=== PATIENT | female | born 1930 ===

== ENCOUNTER 2018-01-26 02:07 | Inpatient (IN) | payer MEDICARE, OTHER ==
--- NOTE | 2018-01-26 02:19 | ED PDOC ---
Arrival/HPI - General Time Seen by Provider: 01/26/18 02:15 Historian: EMS, Police - History of Present Illness Narrative History of Present Illness (Text): 01/26/18 02:15 Guadalupe Mcfadden is an 87 year old female, initially brouhght to the ER as a Aditi Stewart, whose past medical history includes dementia and defibrillator, who presents to the emergency department brought in by EMS for altered mental status after patient was found wandering around a convenience store tonight. Patient does not recall her last name, states her first name is Guadalupe. Patient agitated, yelling, and combative with staff, Patient is unable to provide any further history. Limited HPI and ROS secondary to patient's altered mental status. Time/Duration: Other (tonight) Symptom Onset: Gradual Symptom Course: Unchanged Activities at Onset: Light Context: Street Past Medical History - Provider Review Nursing Documentation Reviewed: Yes Family/Social History - Physician Review Nursing Documentation Reviewed: Yes Family/Social History: Unknown Family HX Allergies/Home Meds Allergies/Adverse Reactions: Allergies Unobtainable Allergy (Verified 01/26/18 02:15) Home Medications: Home Meds Medication Instructions Recorded Confirmed Aspirin [Aspirin Chewable] 81 mg PO DAILY 01/26/18 01/26/18 Carvedilol [Coreg] 6.25 mg PO BID 01/26/18 01/26/18 Cholecalciferol (Vitamin D3) [D3 2,000 iu PO DAILY 01/26/18 01/26/18 Dots] Donepezil [Aricept] 10 mg PO HS 01/26/18 01/26/18 Losartan [Cozaar] 25 mg PO DAILY 01/26/18 01/26/18 Memantine [Namenda] 10 mg PO DAILY 01/26/18 01/26/18 predniSONE [predniSONE] 2.5 mg PO DAILY 01/26/18 01/26/18 risperiDONE [RisperDAL Tab] 0.25 mg PO DAILY 01/26/18 01/26/18 Review of Systems - Review of Systems Systems not reviewed;Unavailable: Altered Mental Status Physical Exam - Physical Exam Physical Exam Limitations: Uncooperative Vital Signs Reviewed: Yes Vital Signs Temp Pulse Resp BP Pulse Ox 01/26/18 06:00 63 14 103/62 95 01/26/18 05:14 57 L 14 97/57 L 94 L 01/26/18 05:00 54 L 16 99/55 L 95 01/26/18 03:15 124 H 128/109 H 01/26/18 02:18 97.7 F 81 19 127/63 98 Temperature: Afebrile Blood Pressure: Normal Pulse: Regular Respiratory Rate: Normal Pain Distress: None Mental Status: Positive for: Agitated, other (Combative) - Systems Exam Head: Present: Atraumatic, Normocephalic Pupils: Present: PERRL Extroacular Muscles: Present: EOMI Conjunctiva: Present: Normal Mouth: Present: Moist Mucous Membranes Neck: Present: Normal Range of Motion Respiratory/Chest: Present: Clear to Auscultation, Good Air Exchange. No: Respiratory Distress, Accessory Muscle Use Cardiovascular: Present: Regular Rate and Rhythm, Normal S1, S2. No: Murmurs Abdomen: No: Tenderness, Distention, Peritoneal Signs Back: Present: Normal Inspection Upper Extremity: Present: Normal Inspection. No: Cyanosis, Edema Lower Extremity: Present: Normal Inspection. No: Edema Neurological: Present: GCS=15, CN II-XII Intact, Speech Normal Skin: Present: Warm, Dry, Normal Color. No: Rashes Psychiatric: Present: Agitated, Other (Combative) Medical Decision Making ED Course and Treatment: 01/26/18 02:15 Impression: 87 year old female brought in initially as a Aditi Stewart after she was found wandering inside a convenience store tonight. Plan: -- Labs -- Ativan -- Reassess and disposition Progress Notes: Pt awake, alert, agitated, yelling, and combative with staff. 01/26/18 02:56 Called to bedside by RN, pt unresponsive, in cardiac arrest. ACLS protocol initiated, CPR commenced, pt placed on continuous telemetry. 01/26/18 02:58 Epi given, CPR in progress. 01/26/18 03:00 Atropine given, CPR in progress. 01/26/18 03:02 Epi given, CPR in progress. 01/26/18 03:03 PROCEDURE: INTUBATION Performed by the emergency provider Consent: Discussion of the risks, benefits, and alternatives to the procedure, along with informed consent was precluded by the urgency of the procedure and the patient condition. Timeout: A timeout to verify the correct patient, procedure, and site was performed. Indication: cardiac arrest Pre-oxygenation: [id number] Medications: See MAR for details. ETT Size: 8.0 G Confirmation: Cords directly visualized as tube passed, good bilateral breath sounds, positive CO2 detector color change, tube fogging, adequate chest rise, improving pulse oximetry reading, improved skin color, and absence of gastric sounds,. ETT Secured: The cuff was inflated and the tube was secured appropriately at a distance of 22 cm at the lip. Post-Procedure: There were no immediate complications. CXR Confirmation: Yes 01/26/18 03:05 Epi given. Pulse-check, no palpable pulses. CPR in progress 01/26/18 03:08 Bedside US performed, PEA, no palpable pulses 01/26/18 03:11 Epi given. Right EJ placed for IV access. PROCEDURE: VENIPUNCTURE Performed by the emergency provider. Consent: Informed consent, after discussion of the risks, benefits, and alternatives to the procedure, was obtained verbally from the patient prior to procedure. Timeout: A timeout to verify the correct patient, procedure, and site was performed immediately prior to the procedure. Indication: Lack of adequate venous access. Skin Preparation: Hand hygiene performed prior to venous catheter insertion. The area was cleansed and prepped with alcohol swabs. Location: Right neck Technique: A 18 gauge catheter was placed into the RIGHT EJ. Successful placement: YES. Good blood return, flushes well. Post-procedure: No immediate complications. 01/26/18 03:14 Epi given, CPR in progress. 01/26/18 03:16 Pulse-check: pulses palpated, NSR at 126 bpm on tele monitor. Total doses of Epi , Atropine as documented. Refer to nursing code documentation for further information. EKG, post-intubation Chest X-Ray, and troponin ordered. 01/26/18 03:40 Pt's bracelet contained pt's past medical history and contact information for daughter. Daughter notified and will come to ER. Pt with a past medical history of dementia and defibrillator. 01/26/18 03:43 Post-intubation Chest X-Ray reviewed, shows ET tube above the jaye. 01/26/18 03:54 Reviewed EKG, NSR at 67 bpm. RBBB. LAFB. LVH. Bifascicular block. Non-specific ST/T wave changes. 01/26/18 03:[address] Keswani, youth program director, who is aware and agrees to evaluate pt for ICU admission. 01/26/18 04:15 Pt's daughters present at bedside, resuscitation efforts were discussed in full. Family verbalize understanding. Pt's name and date confirmed by daughters. - Critical Care Critical Care Minutes: 45 minutes Narrative Critical Care (Text): Management of cardiac arrest - Lab Interpretations Lab Results: 01/26/18 03:15 01/26/18 03:15 Lab Results 01/26/18 03:15: Sodium 148, Potassium 4.0, Chloride 109 H, Carbon Dioxide 14 L, Anion Gap 28 H, BUN 26 H, Creatinine 1.0, Est GFR ( Amer) > 60, Est GFR ( Non-Af Amer) 53, Random Glucose 247 H, Calcium 8.3 L, Total Bilirubin 0.2, AST 53 H, ALT 39, Alkaline Phosphatase 75, Troponin I 0.05, Total Protein 5.2 L, Albumin 2.8 L, Globulin 2.4, Albumin/Globulin Ratio 1.2 01/26/18 03:15: WBC 12.6 H, RBC 4.15, Hgb 12.6, Hct 42.0, MCV 101.2, MCH 30.4, MCHC 30.0 L, RDW 14.9 H, Plt Count 178, MPV 12.4 H, Gran % 28.3 L, Lymph % (Auto ) 61.2 H, [place] % (Auto) 7.8 H, Eos % (Auto) 2.5, Baso % (Auto) 0.2, Gran # 3.54 , Lymph # (Auto) 7.7 H, [place] # (Auto) 1.0 H, Eos # (Auto) 0.3, Baso # (Auto) 0.03 I have reviewed the lab results: Yes - RAD Interpretation Radiology Orders: 01/26/18 03:22 CHEST PORTABLE [RAD] Stat Physical Science Teacher: ED Physician - EKG Interpretation Interpreted by ED Physician: Yes Type: 12 lead EKG - Medication Orders Current Medication Orders: Discontinued Medications Acetaminophen (Tylenol 650 Mg Supp) 650 mg RC Q4H PRN PRN Reason: Fever >100.4 F Diphenhydramine HCl (Benadryl) 50 mg IVP ONCE ONE Stop: 01/28/18 00:13 Last Admin: 01/28/18 00:26 Dose: 50 mg IVP Administration Document 01/28/18 00:26 BASSETT (Rec: 01/28/18 00:26 BASSETT [id number]) Charges for Administration # of IVP Administrations 1 Enoxaparin Sodium (Lovenox) 40 mg SC DAILY DAVID PRN Reason: Protocol Last Admin: 01/27/18 12:00 Dose: 40 mg Subcutaneous Administrations Document 01/27/18 12:00 CONSTANTINE (Rec: 01/27/18 18:01 CONSTANTINE [facility] Injection Site MAR Injection Site Left Deltoid Charges for Administration # of Subcutaneous Administrations 1 Sodium Chloride (Sodium Chloride 0.9%) 1,000 mls @ 120 mls/hr IV .Q8H20M [facility] Last Admin: 01/26/18 06:00 Dose: 120 mls/hr eMAR Start Stop Document 01/26/18 06:00 AD (Rec: 01/26/18 06:26 AD [id number]) Intravenous Solution Start Date 01/26/18 Start Time 06:00 Doxycycline Hyclate 100 mg/ (Sodium Chloride) 100 mls @ 100 mls/hr IVPB Q12 DAVID PRN Reason: Protocol Last Admin: 01/27/18 09:25 Dose: 100 mls/hr eMAR Start Stop Document 01/27/18 09:25 CONSTANTINE (Rec: 01/27/18 09:25 CONSTANTINE [id number]) Intravenous Solution Start Date 01/27/18 Start Time 09:25 End Date 01/27/18 End time 10:25 Total Infusion Time 60 Levetiracetam 1,000 mg/ Sodium (Chloride) 110 mls @ 440 mls/hr IV ONCE ONE Stop: 01/26/18 06:50 Last Admin: 01/26/18 19:15 Dose: 440 mls/hr eMAR Start Stop Document 01/26/18 19:15 CONSTANTINE (Rec: 01/27/18 18:07 CONSTANTINE [facility] Intravenous Solution Start Date 01/26/18 Start Time 19:15 End Date 01/26/18 End time 19:30 Total Infusion Time 15 Levetiracetam (Keppra 500mg Ivpb) 500 mg in 100 mls @ 400 mls/hr IV Q12H [facility] Last Admin: 01/27/18 06:07 Dose: 400 mls/hr eMAR Start Stop Document 01/27/18 06:07 MG (Rec: 01/27/18 06:08 MG [id number]) Intravenous Solution Start Date 01/27/18 Start Time 06:07 End Date 01/27/18 End time 06:22 Total Infusion Time 15 Sodium Bicarbonate 75 meq/ (Sodium Chloride) 1,075 mls @ 100 mls/hr IV .[id number] DAVID Last Admin: 01/26/18 23:00 Dose: 100 mls/hr eMAR Start Stop Document 01/26/18 23:00 MG (Rec: 01/27/18 02:17 MG [id number]) Intravenous Solution Start Date 02/02/18 Start Time 23:00 Cefepime HCl (Maxipime 1gm) 1 gm in 100 mls @ 100 mls/hr IVPB Q8 DAVID PRN Reason: Protocol Stop: 02/04/18 14:01 Last Admin: 01/27/18 14:50 Dose: 100 mls/hr eMAR Start Stop Document 01/27/18 14:50 CONSTANTINE (Rec: 01/27/18 17:51 CONSTANTINE [facility] Intravenous Solution Start Date 01/27/18 Start Time 14:55 End Date 01/27/18 End time 15:55 Total Infusion Time 60 Vancomycin HCl 2 gm/ Sodium (Chloride) 500 mls @ 170 mls/hr IVPB ONCE ONE PRN Reason: Protocol Stop: 01/26/18 16:29 Last Admin: 01/26/18 14:45 Dose: 170 mls/hr eMAR Start Stop Document 01/26/18 14:45 CONSTANTINE (Rec: 01/26/18 14:46 CONSTANTINE [id number]) Intravenous Solution Start Date 01/26/18 Start Time 14:45 End Date 01/26/18 End time 16:35 Total Infusion Time 110 Levetiracetam 1,000 mg/ Sodium (Chloride) 110 mls @ 440 mls/hr IV ONCE ONE Stop: 01/26/18 15:21 Last Admin: 01/26/18 15:19 Dose: 440 mls/hr eMAR Start Stop Document 01/26/18 15:19 CONSTANTINE (Rec: 01/26/18 15:20 CONSTANTINE [id number]) Intravenous Solution Start Date 01/26/18 Start Time 15:19 End Date 01/26/18 End time 15:40 Total Infusion Time 21 Magnesium Sulfate/Dextrose (Magnesium Sulfate 1 Gm/100 Ml D5w) 1 gm in 100 mls @ 100 mls/hr IVPB ONCE ONE Stop: 01/27/18 06:59 Last Admin: 01/27/18 06:11 Dose: 100 mls/hr eMAR Start Stop Document 01/27/18 06:11 MG (Rec: 01/27/18 06:12 MG [id number]) Intravenous Solution Start Date 01/27/18 Start Time 06:12 End Date 01/27/18 End time 07:12 Total Infusion Time 60 Magnesium Sulfate (Magnesium Sulfate 2 Gm/50 Ml Water) 2 gm in 50 mls @ 50 mls/ hr IVPB ONCE ONE Stop: 01/27/18 08:53 Last Admin: 01/27/18 09:20 Dose: 50 mls/hr eMAR Start Stop Document 01/27/18 09:20 CONSTANTINE (Rec: 01/27/18 09:20 CONSTANTINE [id number]) Intravenous Solution Start Date 01/27/18 Start Time 09:20 End Date 01/27/18 End time 10:20 Total Infusion Time 60 Calcium Gluconate 1,000 mg/ (Sodium Chloride) 110 mls @ 110 mls/hr IVPB ONCE ONE Stop: 01/27/18 09:07 Last Admin: 01/27/18 09:19 Dose: 110 mls/hr eMAR Start Stop Document 01/27/18 09:19 CONSTANTINE (Rec: 01/27/18 09:20 CONSTANTINE [id number]) Intravenous Solution Start Date 01/27/18 Start Time 09:19 End Date 01/27/18 End time 10:20 Total Infusion Time 61 Vancomycin HCl (Vancomycin 1gm) 1 gm in 250 mls @ 167 mls/hr IVPB Q12H DAVID PRN Reason: Protocol Last Admin: 01/27/18 17:47 Dose: 167 mls/hr eMAR Start Stop Document 01/27/18 17:47 CONSTANTINE (Rec: 01/27/18 17:49 CONSTANTINE [facility] Intravenous Solution Start Date 01/27/18 Start Time 10:45 End Date 01/27/18 End time 12:15 Total Infusion Time 90 Morphine Sulfate (Morphine Motor Vehicle Salesperson 1 Mg/Ml) 30 mls @ 3 mls/hr IV PRN PRN; Protocol ; 3 MG/HR PRN Reason: PATIENT MONITOR PER MD ORDER Last Titration: 01/28/18 00:17 Dose: 6 mg/hr, 6 mls/hr Titration Intervention Document 01/28/18 00:17 BASSETT (Rec: 01/28/18 00:18 BASSETT [id number]) Titration Intake Titration Intake 10 Cumulative Intake 10 Cumulative Intake (Rx) 10 Waste Amount 0 Container Volume 20 Titration Dosing Titration Dose 6 IV Rate 6 Intake/Decrease Increased Cumulative Dose 10 Insulin Human Lispro (Humalog Low) 0 units SC ACHS DAVID PRN Reason: Protocol Last Admin: 01/27/18 12:00 Dose: 1 u MAR Blood Glucose Document 01/27/18 12:00 CONSTANTINE (Rec: 01/27/18 17:58 [facility]INSTRUMENT INSPECT[facility]) Blood Glucose Finger Stick Blood Glucose (70-120) 178 Subcutaneous Administrations Document 01/27/18 12:00 CONSTANTINE (Rec: 01/27/18 17:58 CONSTANTINE [facility] Injection Site MAR Injection Site Right Arm Charges for Administration # of Subcutaneous Administrations 1 Insulin Human Lispro (Humalog Low) 0 units SC Q6H DAVID PRN Reason: Protocol Last Admin: 01/27/18 18:02 Dose: Not Given Non-Admin Reason: Blood Sugar Parameter MAR Blood Glucose Document 01/27/18 18:02 CONSTANTINE (Rec: 01/27/18 18:02 CONSTANTINE [facility]) Blood Glucose Finger Stick Blood Glucose (70-120) 124 Lorazepam (Ativan) 2 mg IVP STAT STA PRN Reason: Protocol Stop: 01/26/18 06:07 Last Admin: 01/26/18 06:09 Dose: 2 mg IVP Administration Document 01/26/18 06:09 AD (Rec: 01/26/18 06:13 AD [id number]) Charges for Administration # of IVP Administrations 1 Lorazepam (Ativan) 1 mg IVP Q3 PRN; Protocol PRN Reason: Seizure activity Last Admin: 01/27/18 09:29 Dose: 1 mg IVP Administration Document 01/27/18 09:29 CONSTANTINE (Rec: 01/27/18 09:30 CONSTANTINE [id number]) Charges for Administration # of IVP Administrations 1 Behavioural Document 01/27/18 09:29 CONSTANTINE (Rec: 01/27/18 09:30 CONSTANTINE [id number]) Maintenance Maintenance Dose Yes Nonmedicinal Nonmedicinal Interventions See nurse's notes Lorazepam (Ativan) 2 mg IVP STAT STA PRN Reason: Protocol Stop: 01/26/18 15:10 Last Admin: 01/26/18 15:16 Dose: 2 mg IVP Administration Document 01/26/18 15:16 CONSTANTINE (Rec: 01/26/18 15:17 CONSTANTINE [id number]) Charges for Administration # of IVP Administrations 1 Behavioural Document 01/26/18 15:16 CONSTANTINE (Rec: 01/26/18 15:17 CONSTANTINE [id number]) Maintenance Maintenance Dose No Nonmedicinal Nonmedicinal Interventions Redirect Behavior Behavior for Medication: Anxiety Lorazepam (Ativan) 1 mg IVP ONCE ONE PRN Reason: Protocol Stop: 01/27/18 20:20 Last Admin: 01/27/18 20:43 Dose: 1 mg Comments: terminal exubation IVP Administration Document 01/27/18 20:43 BASSETT (Rec: 01/27/18 20:44 BASSETT [id number]) Charges for Administration # of IVP Administrations 1 Behavioural Document 01/27/18 20:43 BASSETT (Rec: 01/27/18 20:44 BASSETT [id number]) Maintenance Maintenance Dose No Nonmedicinal Nonmedicinal Interventions See nurse's notes Behavior Behavior for Medication: Anxiety Lorazepam (Ativan) 2 mg IVP Q6H DAVID PRN Reason: Protocol Last Admin: 01/27/18 22:54 Dose: 2 mg IVP Administration Document 01/27/18 22:54 BASSETT (Rec: 01/27/18 22:55 BASSETT [id number]) Charges for Administration # of IVP Administrations 1 Lorazepam (Ativan) 2 mg IVP Q4H DAVID PRN Reason: Protocol Last Admin: 01/28/18 00:26 Dose: 2 mg IVP Administration Document 01/28/18 00:26 BASSETT (Rec: 01/28/18 00:26 BASSETT [id number]) Charges for Administration # of IVP Administrations 1 Behavioural Document 01/28/18 00:26 BASSETT (Rec: 08/18/18 00:26 BASSETT [id number]) Maintenance Maintenance Dose Yes Morphine Sulfate (Morphine) 4 mg IVP STAT STA Stop: 01/27/18 20:20 Last Admin: 01/27/18 20:41 Dose: 4 mg Comments: terminal exubation MAR Pain Assessment Document 01/27/18 20:41 BASSETT (Rec: 01/27/18 20:42 BASSETT [id number]) Pain Reassessment Is this a pain reassessment? No Sleep Is patient sleeping during reassessment? Yes IVP Administration Document 01/27/18 20:41 BASSETT (Rec: 01/27/18 20:42 BASSETT [id number]) Charges for Administration # of IVP Administrations 1 Pantoprazole Sodium (Protonix Inj) 40 mg IVP DAILY [facility] Last Admin: 01/27/18 09:20 Dose: 40 mg IVP Administration Document 01/27/18 09:20 CONSTANTINE (Rec: 01/27/18 09:22 CONSTANTINE [id number]) Charges for Administration # of IVP Administrations 1 Scopolamine (Transderm-Scop) 1 patch TD Q3D [facility] Last Admin: 01/27/18 20:42 Dose: 1 patch MAR Transdermal Patch Site Document 01/27/18 20:42 BASSETT (Rec: 01/27/18 20:42 BASSETT [id number]) Transdermal Patch Site Transdermal Patch Site Left Upper Chest - Scribe Statement The provider has reviewed the documentation as recorded by the Kathia Ross Provider Scribe Attestation: All medical record entries made by the Scribe were at my direction and personally dictated by me. I have reviewed the chart and agree that the record accurately reflects my personal performance of the history, physical exam, medical decision making, and the department course for this patient. I have also personally directed, reviewed, and agree with the discharge instructions and disposition. Disposition/Present on Arrival - Present on Arrival Any Indicators Present on Arrival: No - Disposition Have Diagnosis and Disposition been Completed?: Yes Diagnosis: Cardiac arrest Disposition: HOSPITALIZED Disposition Time: 04:00 Condition: GOOD
[2018-01-26 03:41] LABS: BASO # 0.03 K/mm3 (0.0-2.0); BASO % 0.2 % (0.0-3.0); EOS # 0.3 (0.0-0.7); EOS % 2.5 % (1.5-5.0); GRAN # 3.54 (1.4-6.5); GRAN % 28.3 % (50.0-68.0); HEMOGLOBIN 12.6 g/dL (12.0-16.0); LYMPH # 7.7 (1.2-3.4); LYMPH % 61.2 % (22.0-35.0); MEAN CELL VOLUME 101.2 fl (80.0-105.0); MEAN CORPUSCULAR HEMOGLOBIN 30.4 pg (25.0-35.0); MEAN PLATELET VOLUME 12.4 fl (7.0-11.0); MONO % 7.8 % (1.0-6.0); RBC 4.15 10^6/uL (3.5-6.1); RED CELL DISTRIBUTION WIDTH 14.9 % (11.5-14.5); WHITE BLOOD COUNT 12.6 10^3/ul (4.5-11.0)
[2018-01-26 03:54] LABS: ALB/GLOB RATIO 1.2 (1.1-1.8); ALBUMIN 2.8 g/dL (3.0-4.8); ALT/SGPT 39 U/L (7-56); AST/SGOT 53 U/L (14-36); BLOOD UREA NITROGEN 26 mg/dL (7-21); CALCIUM 8.3 mg/dL (8.4-10.5); GFR AFRICAN-AMERICAN > 60; GFR NON-AFRICAN AMERICAN 53
[2018-01-26 04:05] LABS: TROPONIN I 0.05 ng/mL
[2018-01-26] MEDS ORDERED: Sodium Chloride 0.9% 1,000 ML IV SCH (05:30)
[2018-01-26 05:40] LABS: ARTERIAL BLOOD GAS O2 SAT 90.3 % (95-98); ARTERIAL BLOOD GAS PCO2 41 mm/Hg (35-45); ARTERIAL BLOOD GAS TCO2 16.3 mmol.L (22-28)
[2018-01-26 05:58] LABS: ARTERIAL BLOOD GAS PH 7.17 (7.35-7.45)
[2018-01-26] MEDS ORDERED: levETIRAcetam 1,000 MG in Sodium Chloride 0.9% 100 ML IV ONE ×2 (06:36→15:07)
[2018-01-26] MEDS ORDERED: Piperacillin/Tazobact 2.25gm 2.25 GM/100 ML BAG IVPB SCH (06:45)
--- NOTE | 2018-01-26 07:09 | CP.PCM.HP ---
History of Present Illness - History of Present Illness History of Present Illness: Tamara Cho, PGY-1, Internal Medicine History and Physical for Dr. Briceno CC: Status Post Cardiac Arrest 87 year old female with past medical history of CHF s/p defibrillator and dementia presents with altered mental status after patient was found wandering around a convenience store around 1:00 AM this morning. According to ED note, patient did not recall last name but recalled first name was Guadalupe. Patient was combative with staff and unable to provide history. Patient was about to be given a dose of ativan to calm her, but at 2:56 this morning, patient was found unresponsive and ACLS protocol was initiated. 3 doses of epinephrine and 1 dose of atropine was given. Patient was intubated with 8.0 G tube at a depth of 22 cm. An 18 gauge catheter was placed in right EJ. Code lasted 20 minutes. Before code, patient had initially lost pulse and then was found to be in PEA during code. EKG after code showed normal sinus rhythm at 67 bpm. RBBB, LAFB, LVH, bifascicular block was seen. On presentation, patient was intubated. Patient was on 100% FiO2, PEEP 5, TV: 500, RR: 14. Patient had jerking like activity every 30 seconds. 12-point ROS was unattainable due to patient's condition. PMH: as reported above PSH: polyp removal per daughter FMHx: unattainable due to patient's mental status Social history: 1 ppd for undeterminate number of years that stopped 20 years ago as per daughter. Daughters deny patient had history of alcohol or recreational drug use. PMD: Dr. Unger per daughter Present on Admission - Present on Admission Any Indicators Present on Admission: No History of DVT/PE: No History of Uncontrolled Diabetes: No Review of Systems - Review of Systems Systems not reviewed;Unavailable: Acuity of Condition, Intubated Past Patient History - Infectious Disease Hx of Infectious Diseases: None Meds Allergies/Adverse Reactions: Allergies Allergy/AdvReac Type Severity Reaction Status Date / Time Unobtainable Allergy Verified 01/26/18 02:15 Physical Exam - Constitutional Additional comments: intubated - Head Exam Head Exam: ATRAUMATIC, NORMOCEPHALIC - Eye Exam Eye Exam: EOMI, PERRL - Respiratory Exam Additional comments: coarse breath sounds, intubated - Cardiovascular Exam Additional comments: bradycardic - GI/Abdominal Exam GI & Abdominal Exam: Distended, Firm, Soft - Extremities Exam Additional comments: unable to evaluate due to patient's condition, pulse +1/4 throughout - Neurological Exam Additional comments: patient was intubated on presentation Corneal reflex, babinski reflex, and gag reflex were absent. Pupils were not reactive. - Skin Skin Exam: Pallor Additional comments: cool to touch Results - Vital Signs Recent Vital Signs: Last Vital Signs Temp 97.7 F 01/26/18 02:18 Pulse 54 L 01/26/18 05:00 Resp 16 01/26/18 05:00 BP 99/55 L 01/26/18 05:00 Pulse Ox 95 01/26/18 05:00 - Labs Result Diagrams: 01/26/18 03:15 01/26/18 03:15 Labs: Laboratory Results - last 24 hr 01/26/18 05:28 pCO2 41 pO2 60.0 L HCO3 15.0 L ABG pH 7.17 L* ABG Total CO2 16.3 L ABG O2 Saturation 90.3 L ABG Base Excess -13.0 L ABG Potassium 4.0 Sodium 144.0 Chloride 115.0 H Glucose 250 H Lactate 4.4 H* Mechanical Rate 14 FiO2 100.0 Tidal Volume 500 PEEP 5 Arterial Blood Potassium 4.0 Assessment & Plan - Assessment and Plan (Free Text) Assessment: 87 year old with past medical history of congestive heart failure and dementia presented to the ED due to confusion and agitation. Patient subsequently underwent cardiac arrest and ACLS protocol was initiated. Patient was soon after intubated and has jerking like movements that occur every 30 seconds. 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 Dementia 3. Anion gap metabolic acidosis 4. Leukocytosis 5. CHF with unknown EF 6. Elevated AST 7. Elevated glucose with no history of diabetes mellitus Plan: Neurology: -patient has absent corneal, gag, and babinski reflexes -active cooling protocol started -neurochecks Q1 -Head CT to check for etiology for seizures and lack of reflexes -EEG ordered to monitor for seizure activity. -Keppra loading dose 1000 mg given. Will give keppra 500 mg Q12. -Ativan 2 mg stat dose given. Will give ativan 1 mg Q3 PRN for seizure activity. -Neurologist Dr. Albright consulted. Follow recommendations. Cardiology: -Patient is post cardiac arrest. Patient had rhythms of asystole and PEA during cardiac arrest. ACLS protocol was initiated for 20 minutes and patient returned to normal sinus rhythm. -EKG post cardiac arrest: NSR, RBBB, left anterior fascicular block, bifascicular block, t wave abnormality with HR 67, TX: 158, QRS: 128, QTc: 549 -Patient has history of systolic CHF with defibrillator. Last EF is unknown. -Echocardiogram ordered to evaluate cardiac function. -Vital signs Q2. Last blood pressure was 99/55. Last pulse was 54. -Dr. Morgan consulted to evaluate defibrillator function. Pulmonary: -Patient is intubated -Current Vent settings: FiO2: 100%, PEEP: 5, RR: 15, Tidal Volume: 400 -O2 saturation on vent is 95%. -ABG: pCO2: 41, pO2: 60, pH: 7.17 (low), Lactate: 4.4 (elevated) -CXR: possible aspiration pneumonia vs. pulmonary edema -Due to patient's status, aspiration pneumonia is a strong differential. -Patient started on zosyn 2.25 gm Q6H, doxycycline 100 mg Q12 -Chest CT without contrast to evaluate for PE or other cause of cardiac arrest and patient's current status Gastrointestinal: -NPO, OG tube -Elevation of AST likely secondary to cardiac arrest Nephrology: -Likely prerenal AIDAN due to BUN/Cr: 26/1.0 -IV NS at 120cc/hr due to CHF with unknown EF -Anion gap acidosis: 25 likely secondary to lactic acidosis due to hypoxia from cardiac arrest -Delta/delta: 13/10 Infectious Disease: -CXR: possible aspiration pneumonia vs. pulmonary edema -Patient started on zosyn 2.25 gm Q6H, doxycycline 100 mg Q12 -Dr. Valdivia, ADIN consulted for recommendations. Endocrinology: -Glucose: 250 -HgbA1c ordered -Patient has no history of diabetes -Low dose sliding scale insulin Heme/Onc: -Leukocytosis likely 2/2 to stress for cardiac arrest -No anemia DVT prophylaxis: SCD GI prophylaxis: protonix 40 mg Patient seen and assessed with Dr. Briceno. - Date & Time Date: 01/26/18 Time: 07:21
--- NOTE | 2018-01-26 07:18 | CP.PCM.PN ---
Subjective - Date & Time of Evaluation Date of Evaluation: 01/26/18 Time of Evaluation: 06:59 - Subjective Subjective: 87 F h/o AICD, dementia, lived alone was found wandering in 12/21, brought in ER where she was confused, agitated, then she got quite, and asystole, CPR started had PEA, about 20 min for ROSC. At the time of evaluation, patient unresponsive , having spontaneous jerking activity, on 100% FIO2, sinus rhythm on the monitor , no gag, corneal reflex. 3 daughters at the bedside, spoke to them this presentation is most likely form anoxic damage, DD is seizure activity, IC hemorrhage. Hypoxia with asymmetric prominent vascular pattern on CXR more on right then left, DD of pulm edema, aspiration, PE less likely due to presentation. Plan [facility] CT plain including head, chest/abd/pelvis If CT neg for bleeding then hypothermia protocol Keppra loading and schedule, prn ativan Zosyn and doxy for aspiration pna Vent setting later could be changed to ARDS lung protective protocol once patient is in the unit EEG Echo AICD interrogation GI, DVT prophylaxis Spoke to family about poor prognosis with current exam findings. Neurology, cardiology, ID consults. See orders for detail. Objective - Vital Signs/Intake and Output Vital Signs (last 24 hours): Temp Pulse Resp BP Pulse Ox 97.7 F 54 L 16 99/55 L 95 01/26/18 02:18 01/26/18 05:00 01/26/18 05:00 01/26/18 05:00 01/26/18 05:00 - Medications Medications: Current Medications Sodium Chloride (Sodium Chloride 0.9%) 1,000 mls @ 120 mls/hr IV .[id number] DAVID Last Admin: 01/26/18 06:00 Dose: 120 mls/hr Doxycycline Hyclate 100 mg/ (Sodium Chloride) 100 mls @ 100 mls/hr IVPB Q12 DAVID PRN Reason: Protocol Piperacillin Sod/Tazobactam Sod (Zosyn 2.25 Gm In 0.9% 100 Ml) 2.25 gm in 100 mls @ 100 mls/hr IVPB Q6H DAVID Stop: 01/26/18 13:44 Levetiracetam (Keppra 500mg Ivpb) 500 mg in 100 mls @ 400 mls/hr IV Q12H DAVID Lorazepam (Ativan) 1 mg IVP Q3 PRN; Protocol PRN Reason: Seizure activity Pantoprazole Sodium (Protonix Inj) 40 mg IVP DAILY DAVID
--- NOTE | 2018-01-26 08:44 | CT ---
EXAM: CT Head Without Intravenous Contrast CLINICAL HISTORY: 87 years old, female; Signs and symptoms; Other: Post cardiac arrest TECHNIQUE: Axial computed tomography images of the head/brain without intravenous contrast. All CT scans at this facility use at least one of these dose optimization techniques: automated exposure control; mA and/or kV adjustment per patient size (includes targeted exams where dose is matched to clinical indication); or iterative reconstruction. Coronal and sagittal reformatted images were created and reviewed. COMPARISON: No relevant prior studies available. FINDINGS: Brain: There is low attenuation abnormality in the periventricular white matter, likely reflecting chronic microvascular ischemic disease. If an acute infarct is clinically suspected, consider MRI with diffusion imaging. No hemorrhage. Ventricles: Unremarkable. No ventriculomegaly. Bones/joints: Unremarkable. No acute fracture. Soft tissues: Unremarkable. Sinuses: There is mild sinus disease. Mastoid air cells: Unremarkable as visualized. No mastoid effusion. Orbits: Orbital calcifications are seen consistent with senile plaques. IMPRESSION: There is low attenuation abnormality in the periventricular white matter, likely reflecting chronic microvascular ischemic disease. If an acute infarct is clinically suspected, consider MRI with diffusion imaging.
--- NOTE | 2018-01-26 08:54 | CT ---
EXAM: CT Abdomen and Pelvis Without Intravenous Contrast CLINICAL HISTORY: 87 years old, female; Signs and symptoms; Other: Post cardiac arrest TECHNIQUE: Axial computed tomography images of the abdomen and pelvis without intravenous contrast. All CT scans at this facility use at least one of these dose optimization techniques: automated exposure control; mA and/or kV adjustment per patient size (includes targeted exams where dose is matched to clinical indication); or iterative reconstruction. Coronal and sagittal reformatted images were created and reviewed. COMPARISON: No relevant prior studies available. FINDINGS: Lung bases: Unremarkable. No mass. No consolidation. ABDOMEN: Liver: Unremarkable. Gallbladder and bile ducts: Unremarkable. No calcified stones. No ductal dilation. Pancreas: Unremarkable. No ductal dilation. Spleen: Unremarkable. No splenomegaly. Adrenals: Unremarkable. No mass. Kidneys and ureters: There are what likely represent bilateral sub-centimeter hyperdense renal cysts. No obstructing stones. No hydronephrosis. Stomach and bowel: There is diverticulosis. No obstruction. No mucosal thickening. PELVIS: Appendix: A normal appendix is identified. Bladder: There is a Mercado balloon catheter within a collapsed urinary bladder. No stones. Reproductive: There is a 3 cm left adnexal cyst. Followup pelvic ultrasound is recommended. ABDOMEN and PELVIS: Intraperitoneal space: Unremarkable. No free air. No significant fluid collection. Bones/joints: There is a L4 compression fracture, age-indeterminate. No dislocation. Soft tissues: Unremarkable. Vasculature: There are calcified atherosclerotic changes of the aorta. No abdominal aortic aneurysm. Lymph nodes: Unremarkable. No enlarged lymph nodes. Tubes, lines and devices: There is a nasogastric tube within the stomach. IMPRESSION: There is a 3 cm left adnexal cyst. Followup pelvic ultrasound is recommended. EXAM: CT Chest Without Intravenous Contrast CLINICAL HISTORY: 87 years old, female; Signs and symptoms; Other: Post cardiac arrest TECHNIQUE: Axial computed tomography images of the chest without intravenous contrast. All CT scans at this facility use at least one of these dose optimization techniques: automated exposure control; mA and/or kV adjustment per patient size (includes targeted exams where dose is matched to clinical indication); or iterative reconstruction. Coronal and sagittal reformatted images were created and reviewed. COMPARISON: SD - CHEST PORTABLE 2018-01-26 03:26 FINDINGS: Lungs: There is extensive consolidation at both lung bases, right worse than left. There are air bronchograms. This could represent pneumonia. Followup imaging is recommended. Pleural space: Unremarkable. No pneumothorax. No significant effusion. Heart: There is cardiomegaly. No significant pericardial effusion. Bones/joints: Unremarkable. No acute fracture. No dislocation. Soft tissues: Unremarkable. Vasculature: There are atherosclerotic changes of the coronary arteries. There are calcified atherosclerotic changes of the aorta. No thoracic aortic aneurysm. Lymph nodes: Unremarkable. No enlarged lymph nodes. Tubes, lines and devices: There is an endotracheal tube with the tip in good position. There is a nasogastric tube within the stomach. There is a left-sided pacemaker. IMPRESSION: There is extensive consolidation at both lung bases, right worse than left. There are air bronchograms. This could represent extensive bilateral pneumonia. Close clinical and imaging followup is recommended to confirm resolution following treatment.
--- NOTE | 2018-01-26 09:21 | RAD ---
Date of service: 01/26/2018 HISTORY: post intubation COMPARISON: No prior. FINDINGS: LUNGS: Extensive diffuse right-sided pulmonary opacity suspicious for pneumonia. No definite left-sided opacity. Unlikely to represent pulmonary edema. PLEURA: Possible very small left pleural effusion. No pneumothorax. CARDIOVASCULAR: ET tube appropriately positioned with tip approximately 3.0 cm above the tracheal jaye. . AICD noted. OSSEOUS STRUCTURES: No significant abnormalities. VISUALIZED UPPER ABDOMEN: Normal. OTHER FINDINGS: None. IMPRESSION: Extensive right-sided pulmonary infiltrate, nonspecific. ET tube appropriately positioned. Possible very small left pleural effusion.
[2018-01-26 09:26] LABS: VENOUS BLOOD GAS BASE EXCESS -6.7 mmol/L (0.0-2.0); VENOUS BLOOD GAS PO2 29 mm/Hg (30-55); VENOUS BLOOD PH 7.19 (7.32-7.43)
--- NOTE | 2018-01-26 10:04 | CP.PCM.CON ---
History of Present Illness - History of Present Illness History of Present Illness: Gus Easton PGY2 Neurology Consult Note for Dr. Albright Ms. Mcfadden is an 87-year-old female with a PMH of CHF s/p defibrillator and dementia who presented to the ED brought in by EMS after being found wandering around a convenience store 1 AM. Per ED note, the patient was agitated and combative with the staff and a poor historian. HPI and ROS were limited to AMS. In ED, patient became unresponsive, noted to be in asystole arrest. ACLS protocol was initiated; patient received several rounds of epinephrine and atropine 1; PEA was noted during resuscitation efforts. Patient was intubated during the code. ROSC was obtained and post-ROSC EKG showed NSR at 67 bpm, RBBB , LVH, bifascicular block with nonspecific ST/T-wave changes. Patient was transferred to ICU for further care. CT chest/abdomen/pelvis was done and showed extensive consolidation at both lung bases, right worse than left, air bronchograms, which could represent extensive bilateral pneumonia; there is also a 3 cm left adnexal cyst. CT head was done and showed low attenuation in periventricular white matter, likely reflecting chronic microvascular ischemic disease. When evaluated by ICU team, the patient was unresponsive, having spontaneous jerking activity. She was given 2 mg Ativan IVP 1, loaded with Keppra 1000 mg and started on Keppra 500 mg IVPB twice daily. Neurology was consulted for evaluation of possible seizures and hypoxic injury. When evaluated in the ICU, the patient is unresponsive off sedation. Her pupils were constricted and nonresponsive to light. Corneal reflexes, vestibulo -ocular reflexes, and gag reflexes are absent. The patient is intubated, and being ventilated. Per ICU note, the patient will be started on post ROSC hypothermia protocol. The patient is on Doxy and Zosyn due to possible aspiration pneumonia. HPI and ROS were limited due to patient's condition. When reevaluated with Dr. Albright, the patient was noted to have some seizure-like activity; a second loading dose of 1000 mg Keppra was ordered stat as well as 2 mg Ativan IVP stat. The family was bedside, and a lengthy discussion was had with them regarding the patient's current condition, lack of brainstem reflexes , and poor prognosis. The family, of whom members are past nurses, understood the poor prognosis. EEG was reviewed with Dr. Albright, and it did not show seizures but showed some burst suppression, which is associated with coma and severe encephalopathy. The information was relayed to the family and further steps were discussed with them. At their request, the brain protocol was carried out, and a brain flow scan was ordered. ICU team were present during discussion, and will partake in the protocol by evaluating the patient's ability to initiate respiration off the vent. Per H&P note: PMD: Dr. Driscoll PMH: As above PSH: Polyp removal Meds: Unknown Allergies: Unknown SHx: Former tobacco smoker 1 PPD for unknown number of years. per daughters, deny history of alcohol or drug use Review of Systems - Review of Systems Systems not reviewed;Unavailable: Acuity of Condition, Intubated Past Patient History - Infectious Disease Hx of Infectious Diseases: None - Past Medical History & Family History Past Medical History?: No Past Family History: Reviewed and not pertinent - Past Social History Smoking Status: Former Smoker Alcohol: None Drugs: Denies - CARDIAC Hx Congestive Heart Failure: Yes (s/p defibrillator) Hx Internal Defibrillator: Yes - NEUROLOGICAL Hx Dementia: Yes - PSYCHIATRIC Hx Substance Use: No - SURGICAL HISTORY Other/Comment: unable to obtain - ANESTHESIA Hx Anesthesia: No Hx Anesthesia Reactions: No Hx Malignant Hyperthermia: No Meds Allergies/Adverse Reactions: Allergies Allergy/AdvReac Type Severity Reaction Status Date / Time Unobtainable Allergy Verified 01/26/18 02:15 - Medications Medications: Current Medications Doxycycline Hyclate 100 mg/ (Sodium Chloride) 100 mls @ 100 mls/hr IVPB Q12 DAVID PRN Reason: Protocol Piperacillin Sod/Tazobactam Sod (Zosyn 2.25 Gm In 0.9% 100 Ml) 2.25 gm in 100 mls @ 100 mls/hr IVPB Q6H DAVID Stop: 01/26/18 13:44 Levetiracetam (Keppra 500mg Ivpb) 500 mg in 100 mls @ 400 mls/hr IV Q12H DAVID Sodium Bicarbonate 75 meq/ (Sodium Chloride) 1,075 mls @ 100 mls/hr IV .[id number] DAVID Insulin Human Lispro (Humalog Low) 0 units SC ACHS DAVID PRN Reason: Protocol Lorazepam (Ativan) 1 mg IVP Q3 PRN; Protocol PRN Reason: Seizure activity Pantoprazole Sodium (Protonix Inj) 40 mg IVP DAILY DAVID Physical Exam - Constitutional Appears: Non-toxic - Head Exam Head Exam: NORMAL INSPECTION - Eye Exam Eye Exam: absent: PERRL Pupil Exam: Miosis - ENT Exam ENT Exam: Mucous Membranes Dry - Neck Exam Neck exam: Positive for: Normal Inspection - Respiratory Exam Respiratory Exam: Rhonchi (b/l), Wheezes (b/l) - Cardiovascular Exam Cardiovascular Exam: RRR, +S1, +S2 - GI/Abdominal Exam GI & Abdominal Exam: Normal Bowel Sounds, Soft. absent: Distended, Tenderness - Extremities Exam Extremities exam: Negative for: pedal edema - Neurological Exam Neurological exam: Altered Additional comments: unresponsive, off sedation no corneal reflex no gag reflex no vestibulo-ocular reflexes present (Tested by caloric stimulation test and a negative doll's eye test) decerebrate extended posturing at rest no response to sternal rub - Expanded Neurological Exam Expanded Cranial nerves: Gag Reflex: Abnormal Left, Abnormal Right Coma Scale Eye Opening: None Coma Scale Motor Response: None Coma Scale Verbal: None Coma Scale Total: 3 - Skin Skin Exam: Normal Color Results - Vital Signs Recent Vital Signs: Last Vital Signs Temp 97.7 F 01/26/18 02:18 Pulse 51 L 01/26/18 08:21 Resp 16 01/26/18 07:15 BP 99/67 L 01/26/18 07:15 Pulse Ox 97 01/26/18 07:15 - Labs Result Diagrams: 01/26/18 03:15 01/26/18 03:15 Labs: Laboratory Results - last 24 hr 01/26/18 01/26/18 05:28 09:00 pCO2 41 pO2 60.0 L 29 L HCO3 15.0 L ABG pH 7.17 L* ABG Total CO2 16.3 L ABG O2 Saturation 90.3 L ABG Base Excess -13.0 L ABG Potassium 4.0 VBG pH 7.19 L* VBG pCO2 58.0 VBG HCO3 22.2 VBG Total CO2 24.0 VBG O2 Sat (Calc) 55.9 VBG Base Excess -6.7 L VBG Potassium 4.0 Sodium 144.0 143.0 Chloride 115.0 H 111.0 H Glucose 250 H 212 H Lactate 4.4 H* 3.0 H Mechanical Rate 14 FiO2 100.0 21.0 Tidal Volume 500 PEEP 5 Arterial Blood Potassium 4.0 Venous Blood Potassium 4.0 Assessment & Plan - Assessment and Plan (Free Text) Assessment: 87-year-old female with a PMH of CHF s/p defibrillator and dementia who presented to the ED brought in by EMS after being found wandering around, experienced asystole arrest in ED, ROSC obtained, with post-ROSC seizure-like activity, found to be burst suppression waves on EEG. . Patient is intubated, on vent, and is not responsive off sedation, with absence of reflexes that indicate brain injury likely due to anoxic injury. Plan: Seizure-like activity, possibly 2/2 anoxic injury - continue Keppra 500mg Q12 - Ativan PRN seizure-activity - MRI is preferred, but given defibrillator, it is unfeasible and [place] [facility] [place] flow study done, pending official read - recommend continuing brain protocol by testing respiration off vent - echo done, pending official read - cardiology consulted, recs appreciated - ID is consulted, recs appreciated - cont Doxy and cefepime per ID - blood, urine and sputum cultures pending - prognosis is poor, continue to comfort and provide family with information - continue ICU care - Further recs per Dr. Albright Case was reviewed and discussed with attending, Dr. Jose Ramon Easton PGY2
[2018-01-26 10:17] VITALS: BMI 29.2
[2018-01-26 11:13] LABS: URINE BILIRUBIN NEGATIVE (NEGATIVE); URINE BLOOD MODERATE (NEGATIVE); URINE GLUCOSE (UA) NEGATIVE (NEGATIVE); URINE LEUKOCYTE ESTERASE NEGATIVE Leu/uL (NEGATIVE); URINE PROTEIN 30 mg/dL (<30 mg/dL); URINE UROBILINOGEN 0.2 E.U./dL (<1 E.U./dL)
[2018-01-26 11:19] LABS: URINE APPEARANCE CLEAR (CLEAR); URINE COLOR YELLOW (YELLOW)
[2018-01-26 11:26] LABS: URINE BACTERIA MANY (NEG)
[2018-01-26 11:27] LABS: URINE AMORPHOUS SEDIMENT FEW; URINE COARSE GRANULAR CAST TRACE /hpf (0-2); URINE FINE GRANULAR CAST 0 - 2 /hpf (0-2)
--- NOTE | 2018-01-26 11:33 | CP.CCUPN ---
<Dana Castañeda - Last Filed: 01/26/18 11:28> CCU Subjective - Physician Review Events Since Last Encounter (Free Text): Dana Castañeda, PGY-1 ICU Progress Note Patient seen and examined at bedside. Patient admitted to ICU this morning. Currently intubated and hypothermia protocol in progress. Echo and EEG are pending. Panculture pending. ROS limited due to non responsive status. Discussing DNR with family. CCU Objective - Vital Signs / Intake & Output Vital Signs (Last 4 hours): Vital Signs Temp Pulse Pulse Resp BP 01/26/18 09:00 95.2 F L 53 L 52 L 15 134/66 01/26/18 08:21 51 L Intake and Output (Last 8hrs): Intake & Output 01/25/18 01/26/18 01/26/18 22:59 06:59 14:59 Weight 140 lb Other: Voiding Method Indwelling Catheter - Physical Exam Physical Exam Limitations: Positive for: Other (non responsive) Head: Positive for: Atraumatic, Normocephalic Pupils: Positive for: Sluggish, Pinpoint Conjunctiva: Positive for: Normal Mouth: Positive for: Moist Mucous Membranes Respiratory/Chest: Positive for: Clear to Auscultation, Good Air Exchange. Negative for: Respiratory Distress, Accessory Muscle Use Cardiovascular: Positive for: Normal S1, S2. Negative for: Murmurs Abdomen: Negative for: Tenderness, Distention, Peritoneal Signs Back: Positive for: Normal Inspection Upper Extremity: Positive for: Normal Inspection. Negative for: Cyanosis, Edema Lower Extremity: Positive for: Normal Inspection. Negative for: Edema Neurological: Positive for: Other (non responsive) Skin: Positive for: Warm, Dry, Normal Color. Negative for: Rashes Psychiatric: Positive for: Other (non responsive) - Medications Active Medications: Active Medications Generic Name Dose Route Start Last Admin Trade Name Freq PRN Reason Stop Dose Admin Doxycycline Hyclate 100 mg/ 100 mls @ 100 mls/hr 01/26/18 10:00 Sodium Chloride IVPB Q12 DAVID Protocol Piperacillin Sod/Tazobactam Sod 2.25 gm in 100 mls @ 100 mls/hr 01/26/18 06: 45 Zosyn 2.25 Gm In 0.9% 100 Ml IVPB 01/26/18 13:44 Q6H DAVID Levetiracetam 500 mg in 100 mls @ 400 mls/hr 01/26/18 18:30 Keppra 500mg Ivpb IV Q12H [facility] Sodium Bicarbonate 75 meq/ 1,075 mls @ 100 mls/hr 01/26/18 10:00 Sodium Chloride IV .[id number] [facility] Insulin Human Lispro 0 units 01/26/18 11:30 Humalog Low SC ACHS [facility] Protocol Lorazepam 1 mg 01/26/18 06:36 Ativan IVP Q3 PRN Seizure activity Protocol Pantoprazole Sodium 40 mg 01/26/18 10:00 Protonix Inj IVP DAILY DAVID - Patient Studies Lab Studies: Lab Studies 01/26/18 01/26/18 01/26/18 Range/Units 11:11 09:00 09:00 pCO2 (35-45) mm/Hg pO2 29 L (80-100) mm/Hg HCO3 (21-28) mmol/L ABG pH (7.35-7.45) ABG Total CO2 (22-28) mmol.L ABG O2 Saturation (95-98) % ABG Base Excess (-2.0-3.0) mmol/L ABG Potassium (3.6-5.2) mmol/L VBG pH 7.19 L* (7.32-7.43) VBG pCO2 58.0 (40-60) VBG HCO3 22.2 (21-28) mmol/l VBG Total CO2 24.0 (22-28) mmol.L VBG O2 Sat (Calc) 55.9 (40-65) % VBG Base Excess -6.7 L (0.0-2.0) mmol/L VBG Potassium 4.0 (3.6-5.2) mmol/L Sodium 143.0 (132-148) mmol/L Chloride 111.0 H (98-107) mmol/L Glucose 212 H (65-105) mg/dl Lactate 3.0 H (0.7-2.1) mmol/L Mechanical Rate FiO2 21.0 % Tidal Volume PEEP Troponin I 1.46 H* D ng/mL Arterial Blood Potassium (3.6-5.2) mmol/L Venous Blood Potassium 4.0 (3.6-5.2) mmol/L Urine Color Yellow (YELLOW) Urine Appearance Clear (CLEAR) Urine pH 6.0 (4.7-8.0) Ur Specific [place] 1.025 (1.005-1.035) Urine Protein 30 H (<30 mg/dL) mg/dL Urine Glucose (UA) Negative (NEGATIVE) mg/dL Urine Ketones Negative (NEGATIVE) mg/dL Urine Blood Moderate H (NEGATIVE) Urine Nitrate Negative (NEGATIVE) Urine Bilirubin Negative (NEGATIVE) Urine Urobilinogen 0.2 (<1 E.U./dL) E.U./dL Ur Leukocyte Esterase Negative (NEGATIVE) Alida/uL Urine RBC 10 - 15 (0-2) /hpf Urine WBC 1 - 3 (0-6) /hpf Ur Epithelial Cells 4 - 5 (0-5) /hpf Amorphous Sediment Few Urine Bacteria Many (NEG) Fine Granular Casts 0 - 2 (0-2) /hpf Coarse Granular Casts Trace H (0-2) /hpf Urine Other Uyeast 01/26/18 Range/Units 05:28 pCO2 41 (35-45) mm/Hg pO2 60.0 L (80-100) mm/Hg HCO3 15.0 L (21-28) mmol/L ABG pH 7.17 L* (7.35-7.45) ABG Total CO2 16.3 L (22-28) mmol.L ABG O2 Saturation 90.3 L (95-98) % ABG Base Excess -13.0 L (-2.0-3.0) mmol/L ABG Potassium 4.0 (3.6-5.2) mmol/L VBG pH (7.32-7.43) VBG pCO2 (40-60) VBG HCO3 (21-28) mmol/l VBG Total CO2 (22-28) mmol.L VBG O2 Sat (Calc) (40-65) % VBG Base Excess (0.0-2.0) mmol/L VBG Potassium (3.6-5.2) mmol/L Sodium 144.0 (132-148) mmol/L Chloride 115.0 H (98-107) mmol/L Glucose 250 H (65-105) mg/dl Lactate 4.4 H* (0.7-2.1) mmol/L Mechanical Rate 14 FiO2 100.0 % Tidal Volume 500 PEEP 5 Troponin I ng/mL Arterial Blood Potassium 4.0 (3.6-5.2) mmol/L Venous Blood Potassium (3.6-5.2) mmol/L Urine Color (YELLOW) Urine Appearance (CLEAR) Urine pH (4.7-8.0) Ur Specific [place] (1.005-1.035) Urine Protein (<30 mg/dL) mg/dL Urine Glucose (UA) (NEGATIVE) mg/dL Urine Ketones (NEGATIVE) mg/dL Urine Blood (NEGATIVE) Urine Nitrate (NEGATIVE) Urine Bilirubin (NEGATIVE) Urine Urobilinogen (<1 E.U./dL) E.U./dL Ur Leukocyte Esterase (NEGATIVE) Alida/uL Urine RBC (0-2) /hpf Urine WBC (0-6) /hpf Ur Epithelial Cells (0-5) /hpf Amorphous Sediment Urine Bacteria (NEG) Fine Granular Casts (0-2) /hpf Coarse Granular Casts (0-2) /hpf Urine Other Laboratory Results - last 24 hr 01/26/18 01/26/18 01/26/18 05:28 09:00 09:00 pCO2 41 pO2 60.0 L 29 L HCO3 15.0 L ABG pH 7.17 L* ABG Total CO2 16.3 L ABG O2 Saturation 90.3 L ABG Base Excess -13.0 L ABG Potassium 4.0 VBG pH 7.19 L* VBG pCO2 58.0 VBG HCO3 22.2 VBG Total CO2 24.0 VBG O2 Sat (Calc) 55.9 VBG Base Excess -6.7 L VBG Potassium 4.0 Sodium 144.0 143.0 Chloride 115.0 H 111.0 H Glucose 250 H 212 H Lactate 4.4 H* 3.0 H Mechanical Rate 14 FiO2 100.0 21.0 Tidal Volume 500 PEEP 5 Troponin I 1.46 H* D Arterial Blood Potassium 4.0 Venous Blood Potassium 4.0 Urine Color Urine Appearance Urine pH Ur Specific [place] Urine Protein Urine Glucose (UA) Urine Ketones Urine Blood Urine Nitrate Urine Bilirubin Urine Urobilinogen Ur Leukocyte Esterase Urine RBC Urine WBC Ur Epithelial Cells Amorphous Sediment Urine Bacteria Fine Granular Casts Coarse Granular Casts Urine Other 01/26/18 11:11 pCO2 pO2 HCO3 ABG pH ABG Total CO2 ABG O2 Saturation ABG Base Excess ABG Potassium VBG pH VBG pCO2 VBG HCO3 VBG Total CO2 VBG O2 Sat (Calc) VBG Base Excess VBG Potassium Sodium Chloride Glucose Lactate Mechanical Rate FiO2 Tidal Volume PEEP Troponin I Arterial Blood Potassium Venous Blood Potassium Urine Color Yellow Urine Appearance Clear Urine pH 6.0 Ur Specific [place] 1.025 Urine Protein 30 H Urine Glucose (UA) Negative Urine Ketones Negative Urine Blood Moderate H Urine Nitrate Negative Urine Bilirubin Negative Urine Urobilinogen 0.2 Ur Leukocyte Esterase Negative Urine RBC 10 - 15 Urine WBC 1 - 3 Ur Epithelial Cells 4 - 5 Amorphous Sediment Few Urine Bacteria Many Fine Granular Casts 0 - 2 Coarse Granular Casts Trace H Urine Other Uyeast EKG/Cardiology Studies: Cardiology / EKG Studies 01/26/18 EKG [ELECTROCARDIOGRAM] Routine Comment: Reason For Exam: s/p cardiac arrest Assessment/Plan - Assessment and Plan (Free Text) Assessment: This is a 87 year old female with PMH of CHF s/p defibrillator and dementia presenting to the ICU s/p cardiac arrest complicated with potential ARDS and aspiration pneumonia. Will discuss DNR status with family. Plan: Neuro: -currently on hypothermia protocol. Started at approximately 8am. Will begin rewarming at 8am tomorrow. -Intubated not on sedation -Neuro check q1 -on keppra for empiric treatment of seizure -CT head showed chronic microvascular ischemic changes -EEG pending -Neuro on consult, Dr. Albright Cardio: -s/p cardiopulmonary arrest. -history of systolic CHF with pacemaker/AICD placement -maintain MAP>65 -will monitor vitals including HR and BP closely, vitals q2 -echo pending -Cardio on consult, Dr. Morgan Lungs: -SaO2 >90% -supplementary O2 PRN -CT chest showed extensive consolidation at lung bases R>L, concern for pneumonia -High PEEP/low TV ventilator setting in light of ARDS. PaO2/FiO2: 60, representing severe ARDS -Current Vent settings of TV 400, RR 5, PEEP 5 and FiO2 of 100 Renal: -maintain euvolemia -avoid nephrotoxic agents, hypochloremia -replace electrolytes as needed -BUN/Cr 26/1 -ABG today reads pH/pO2/pCO2/bicarb of 7.17/60/41/15. Anion gap metabolic acidosis secondary to lactic acidosis (4.4) from cardiac arrest -bicarb in NS at 100 Heme: -Hg today is 12.6, will monitor -SCD ppx Endo: -maintain euglycemia -insulin lispro ACHS ID: -WBC is 12.6 today, afebrile -blood culture, urine culture, MRSA screen pending -on zosyn and doxycycline for aspiration pneumonia concern -GI: -NPO, OG tube -GI prophylaxis protonix <Dos Santos,Bilal - Last Filed: 01/26/18 13:18> CCU Objective - Vital Signs / Intake & Output Intake and Output (Last 8hrs): Intake & Output 01/25/18 01/26/18 01/26/18 22:59 06:59 14:59 Weight 140 lb Other: Voiding Method Indwelling Catheter - Medications Active Medications: Active Medications Generic Name Dose Route Start Last Admin Trade Name Freq PRN Reason Stop Dose Admin Doxycycline Hyclate 100 mg/ 100 mls @ 100 mls/hr 01/26/18 10:00 01/26/18 11: 00 Sodium Chloride IVPB 100 mls/hr Q12 DAVID Administration Protocol Piperacillin Sod/Tazobactam Sod 2.25 gm in 100 mls @ 100 mls/hr 01/26/18 06: 45 Zosyn 2.25 Gm In 0.9% 100 Ml IVPB 01/26/18 13:44 Q6H DAVID Levetiracetam 500 mg in 100 mls @ 400 mls/hr 01/26/18 18:30 Keppra 500mg Ivpb IV Q12H DAVID Sodium Bicarbonate 75 meq/ 1,075 mls @ 100 mls/hr 01/26/18 10:00 01/26/18 12: 00 Sodium Chloride IV 100 mls/hr .[id number] DAVID Administration Insulin Human Lispro 0 units 01/26/18 11:30 Humalog Low SC ACHS DAVID Protocol Lorazepam 1 mg 01/26/18 06:36 01/26/18 10:55 Ativan IVP 1 mg Q3 PRN Administration Seizure activity Protocol Pantoprazole Sodium 40 mg 01/26/18 10:00 01/26/18 10:50 Protonix Inj IVP 40 mg DAILY DAVID Administration - Patient Studies Lab Studies: Lab Studies 01/26/18 01/26/18 01/26/18 Range/Units 12:26 11:42 11:11 pCO2 47 H (35-45) mm/Hg pO2 121.0 H (80-100) mm/Hg HCO3 19.2 L (21-28) mmol/L ABG pH 7.22 L (7.35-7.45) ABG Total CO2 20.6 L (22-28) mmol.L ABG O2 Saturation 99.8 H (95-98) % ABG Base Excess -8.5 L (-2.0-3.0) mmol/L ABG Potassium 3.7 (3.6-5.2) mmol/L VBG pH (7.32-7.43) VBG pCO2 (40-60) VBG HCO3 (21-28) mmol/l VBG Total CO2 (22-28) mmol.L VBG O2 Sat (Calc) (40-65) % VBG Base Excess (0.0-2.0) mmol/L VBG Potassium (3.6-5.2) mmol/L Sodium 142.0 (132-148) mmol/L Chloride 116.0 H (98-107) mmol/L Glucose 191 H (65-105) mg/dl Lactate 1.6 (0.7-2.1) mmol/L Mechanical Rate 15 FiO2 100.0 % Tidal Volume 400 PEEP 5 POC Glucose (mg/dL) 188 H (65-110) mg/dL Hemoglobin A1c (4.2-6.5) % Troponin I ng/mL Arterial Blood Potassium 3.7 (3.6-5.2) mmol/L Venous Blood Potassium (3.6-5.2) mmol/L Urine Color Yellow (YELLOW) Urine Appearance Clear (CLEAR) Urine pH 6.0 (4.7-8.0) Ur Specific [place] 1.025 (1.005-1.035) Urine Protein 30 H (<30 mg/dL) mg/dL Urine Glucose (UA) Negative (NEGATIVE) mg/dL Urine Ketones Negative (NEGATIVE) mg/dL Urine Blood Moderate H (NEGATIVE) Urine Nitrate Negative (NEGATIVE) Urine Bilirubin Negative (NEGATIVE) Urine Urobilinogen 0.2 (<1 E.U./dL) E.U./dL Ur Leukocyte Esterase Negative (NEGATIVE) Alida/uL Urine RBC 10 - 15 (0-2) /hpf Urine WBC 1 - 3 (0-6) /hpf Ur Epithelial Cells 4 - 5 (0-5) /hpf Amorphous Sediment Few Urine Bacteria Many (NEG) Fine Granular Casts 0 - 2 (0-2) /hpf Coarse Granular Casts Trace H (0-2) /hpf Urine Other Uyeast 01/26/18 01/26/18 01/26/18 Range/Units 09:00 09:00 05:28 pCO2 41 (35-45) mm/Hg pO2 29 L 60.0 L (80-100) mm/Hg HCO3 15.0 L (21-28) mmol/L ABG pH 7.17 L* (7.35-7.45) ABG Total CO2 16.3 L (22-28) mmol.L ABG O2 Saturation 90.3 L (95-98) % ABG Base Excess -13.0 L (-2.0-3.0) mmol/L ABG Potassium 4.0 (3.6-5.2) mmol/L VBG pH 7.19 L* (7.32-7.43) VBG pCO2 58.0 (40-60) VBG HCO3 22.2 (21-28) mmol/l VBG Total CO2 24.0 (22-28) mmol.L VBG O2 Sat (Calc) 55.9 (40-65) % VBG Base Excess -6.7 L (0.0-2.0) mmol/L VBG Potassium 4.0 (3.6-5.2) mmol/L Sodium 143.0 144.0 (132-148) mmol/L Chloride 111.0 H 115.0 H (98-107) mmol/L Glucose 212 H 250 H (65-105) mg/dl Lactate 3.0 H 4.4 H* (0.7-2.1) mmol/L Mechanical Rate 14 FiO2 21.0 100.0 % Tidal Volume 500 PEEP 5 POC Glucose (mg/dL) (65-110) mg/dL Hemoglobin A1c (4.2-6.5) % Troponin I 1.46 H* D ng/mL Arterial Blood Potassium 4.0 (3.6-5.2) mmol/L Venous Blood Potassium 4.0 (3.6-5.2) mmol/L Urine Color (YELLOW) Urine Appearance (CLEAR) Urine pH (4.7-8.0) Ur Specific [place] (1.005-1.035) Urine Protein (<30 mg/dL) mg/dL Urine Glucose (UA) (NEGATIVE) mg/dL Urine Ketones (NEGATIVE) mg/dL Urine Blood (NEGATIVE) Urine Nitrate (NEGATIVE) Urine Bilirubin (NEGATIVE) Urine Urobilinogen (<1 E.U./dL) E.U./dL Ur Leukocyte Esterase (NEGATIVE) Alida/uL Urine RBC (0-2) /hpf Urine WBC (0-6) /hpf Ur Epithelial Cells (0-5) /hpf Amorphous Sediment Urine Bacteria (NEG) Fine Granular Casts (0-2) /hpf Coarse Granular Casts (0-2) /hpf Urine Other 01/26/18 Range/Units 05:00 pCO2 (35-45) mm/Hg pO2 (80-100) mm/Hg HCO3 (21-28) mmol/L ABG pH (7.35-7.45) ABG Total CO2 (22-28) mmol.L ABG O2 Saturation (95-98) % ABG Base Excess (-2.0-3.0) mmol/L ABG Potassium (3.6-5.2) mmol/L VBG pH (7.32-7.43) VBG pCO2 (40-60) VBG HCO3 (21-28) mmol/l VBG Total CO2 (22-28) mmol.L VBG O2 Sat (Calc) (40-65) % VBG Base Excess (0.0-2.0) mmol/L VBG Potassium (3.6-5.2) mmol/L Sodium (132-148) mmol/L Chloride (98-107) mmol/L Glucose (65-105) mg/dl Lactate (0.7-2.1) mmol/L Mechanical Rate FiO2 % Tidal Volume PEEP POC Glucose (mg/dL) (65-110) mg/dL Hemoglobin A1c 6.8 H (4.2-6.5) % Troponin I ng/mL Arterial Blood Potassium (3.6-5.2) mmol/L Venous Blood Potassium (3.6-5.2) mmol/L Urine Color (YELLOW) Urine Appearance (CLEAR) Urine pH (4.7-8.0) Ur Specific [place] (1.005-1.035) Urine Protein (<30 mg/dL) mg/dL Urine Glucose (UA) (NEGATIVE) mg/dL Urine Ketones (NEGATIVE) mg/dL Urine Blood (NEGATIVE) Urine Nitrate (NEGATIVE) Urine Bilirubin (NEGATIVE) Urine Urobilinogen (<1 E.U./dL) E.U./dL Ur Leukocyte Esterase (NEGATIVE) Alida/uL Urine RBC (0-2) /hpf Urine WBC (0-6) /hpf Ur Epithelial Cells (0-5) /hpf Amorphous Sediment Urine Bacteria (NEG) Fine Granular Casts (0-2) /hpf Coarse Granular Casts (0-2) /hpf Urine Other Laboratory Results - last 24 hr 01/26/18 01/26/18 01/26/18 05:00 05:28 09:00 pCO2 41 pO2 60.0 L 29 L HCO3 15.0 L ABG pH 7.17 L* ABG Total CO2 16.3 L ABG O2 Saturation 90.3 L ABG Base Excess -13.0 L ABG Potassium 4.0 VBG pH 7.19 L* VBG pCO2 58.0 VBG HCO3 22.2 VBG Total CO2 24.0 VBG O2 Sat (Calc) 55.9 VBG Base Excess -6.7 L VBG Potassium 4.0 Sodium 144.0 143.0 Chloride 115.0 H 111.0 H Glucose 250 H 212 H Lactate 4.4 H* 3.0 H Mechanical Rate 14 FiO2 100.0 21.0 Tidal Volume 500 PEEP 5 POC Glucose (mg/dL) Hemoglobin A1c 6.8 H Troponin I Arterial Blood Potassium 4.0 Venous Blood Potassium 4.0 Urine Color Urine Appearance Urine pH Ur Specific [place] Urine Protein Urine Glucose (UA) Urine Ketones Urine Blood Urine Nitrate Urine Bilirubin Urine Urobilinogen Ur Leukocyte Esterase Urine RBC Urine WBC Ur Epithelial Cells Amorphous Sediment Urine Bacteria Fine Granular Casts Coarse Granular Casts Urine Other 01/26/18 01/26/18 01/26/18 09:00 11:11 11:42 pCO2 pO2 HCO3 ABG pH ABG Total CO2 ABG O2 Saturation ABG Base Excess ABG Potassium VBG pH VBG pCO2 VBG HCO3 VBG Total CO2 VBG O2 Sat (Calc) VBG Base Excess VBG Potassium Sodium Chloride Glucose Lactate Mechanical Rate FiO2 Tidal Volume PEEP POC Glucose (mg/dL) 188 H Hemoglobin A1c Troponin I 1.46 H* D Arterial Blood Potassium Venous Blood Potassium Urine Color Yellow Urine Appearance Clear Urine pH 6.0 Ur Specific [place] 1.025 Urine Protein 30 H Urine Glucose (UA) Negative Urine Ketones Negative Urine Blood Moderate H Urine Nitrate Negative Urine Bilirubin Negative Urine Urobilinogen 0.2 Ur Leukocyte Esterase Negative Urine RBC 10 - 15 Urine WBC 1 - 3 Ur Epithelial Cells 4 - 5 Amorphous Sediment Few Urine Bacteria Many Fine Granular Casts 0 - 2 Coarse Granular Casts Trace H Urine Other Uyeast 01/26/18 12:26 pCO2 47 H pO2 121.0 H HCO3 19.2 L ABG pH 7.22 L ABG Total CO2 20.6 L ABG O2 Saturation 99.8 H ABG Base Excess -8.5 L ABG Potassium 3.7 VBG pH VBG pCO2 VBG HCO3 VBG Total CO2 VBG O2 Sat (Calc) VBG Base Excess VBG Potassium Sodium 142.0 Chloride 116.0 H Glucose 191 H Lactate 1.6 Mechanical Rate 15 FiO2 100.0 Tidal Volume 400 PEEP 5 POC Glucose (mg/dL) Hemoglobin A1c Troponin I Arterial Blood Potassium 3.7 Venous Blood Potassium Urine Color Urine Appearance Urine pH Ur Specific [place] Urine Protein Urine Glucose (UA) Urine Ketones Urine Blood Urine Nitrate Urine Bilirubin Urine Urobilinogen Ur Leukocyte Esterase Urine RBC Urine WBC Ur Epithelial Cells Amorphous Sediment Urine Bacteria Fine Granular Casts Coarse Granular Casts Urine Other EKG/Cardiology Studies: Cardiology / EKG Studies 01/26/18 EKG [ELECTROCARDIOGRAM] Routine Comment: Reason For Exam: s/p cardiac arrest Addendum Addendum: 01/26/18 13:17 ICU Attending Addendum: Patient seen and examined. Case reviewed on round with housestaff. Agree with resident note above with the following additions/exceptions: This is a 87F with hx of CHF (unknown EF however has AICD), and advanced dementia who presented to the ED brought in by EMS after being found wandering around a convenience store 1 AM. Brought into the ED and triaged by 2am. Documented as combative at 2:20am, found unresponsive at 2:56am. ROSC achieved. Intubated. Not on pressors. Etiology is unclear. She is at risk with her CHF for arrythmia. If it was VT/VF I would expect the AICD to discharge. We can review the AICD to get a better idea of her rhythm. Will clarify if she rec'd any meds for her agitation. Her CT also suggest aspiration which may have caused or be the result of her cardiac arresst. At this point she is hemodynamically stable not on pressors. The extent of her anoxia is unknown, will initate target temp management. She is having some twitching which may reflec neuro injury. Cont keppra and f.u neuro rec and EEG. She is in severe ARDS possible from aspiration. Low tidal volume ventilation. Her pH is already low and may drop below 7.1, we will start a bicarb drip. Vt should be 6cc/kg of ideal body weight. Will paralyze/sedate if she remains hypoxia, may need to prone. Conservative fluids. Abx as per ID. Repeat lac and ABG. Discussed patient's condition and plan as well as guarded prognosis with her 3 daughter at bedside. Rest of care as noted above. Gera Dos Santos MD Sanitation Director Critical care time : 45 mins
[2018-01-26] MEDS ORDERED: Piperacillin/Tazobact 3.375 gm Inj IVPB SCH ×2 (12:00)
[2018-01-26 12:30] LABS: ARTERIAL BLOOD GAS HCO3 19.2 mmol/L (21-28); ARTERIAL BLOOD GAS O2 SAT 99.8 % (95-98); ARTERIAL BLOOD GAS PCO2 47 mm/Hg (35-45); ARTERIAL BLOOD GAS PH 7.22 (7.35-7.45); ARTERIAL BLOOD GAS TCO2 20.6 mmol.L (22-28)
--- NOTE | 2018-01-26 13:22 | CARD ---
APPROVED REPORT Date of service: 01/26/2018 EKG Measurement Heart [id number] <Conclusion> Sinus bradycardia Right bundle branch block Left anterior fascicular block Bifascicular block Left ventricular hypertrophy with repolarization abnormality Anteroseptal infarct, age undetermined Abnormal ECG
[2018-01-26] MEDS ORDERED: Vancomycin 2 GM in Sodium Chloride 0.9% 500 ML IVPB ONE (13:33)
[2018-01-26] MEDS: Cefepime 1gm in NS 100ml 1 GM/100 ML BAG IVPB SCH ×2 (14:49→21:42)
--- NOTE | 2018-01-26 15:29 | CARD ---
APPROVED REPORT Date of service: 01/26/2018 EXAM: Two-dimensional and M-mode echocardiogram with Doppler and color Doppler. INDICATION CARDIAC ARREST, H/O AICD 2D DIMENSIONS Left Atrium (2D)3.9 (1.6-4.0cm)IVSd1.0 (0.7-1.1cm) LVDd4.8 (3.9-5.9cm)PWd1.4 (0.7-1.1cm) LVDs3.9 (2.5-4.0cm)FS (%) 19.1 % LVEF (%)39.5 (>50%) M-Mode DIMENSIONS Aortic Root2.80 (2.2-3.7cm)Aortic Cusp Exc.1.60 (1.5-2.0cm) Aortic Valve AoV Peak Byuyxctl686.0cm/Wade Peak GR.7mmHgAI P 1/2 [id number] Mitral Valve MV E Btvaovgw33.7cm/sMV A Obtxtitu274.0cm/sE/A ratio0.5 TDI Lateral E' Peak V3.02cm/sMedial E' Peak V2.92cm/sE/Lateral E'19.4 E/Medial E'20.1 Pulmonary Valve PV Peak Nlrwqohl03.1cm/sPV Peak Grad.2mmHg Tricuspid Valve TR Peak [id number]/sRAP [id number] Peak Gr.37mmHg [id number] LEFT VENTRICLE The left ventricle is normal size. There is borderline to mild concentric left ventricular hypertrophy. The systolic function is moderately impaired.EF-30-35% There is mild to moderate hypokinesis in the basal inferoseptal wall. Transmitral Doppler flow pattern is Grade III-reversible restrictive diastolic dysfunction. No left ventricle thrombus noted on this study. There is no ventricular septal defect visualized. There is no left ventricular aneurysm. There is no mass noted in the left ventricle. RIGHT VENTRICLE The right ventricle is normal size. There is normal right ventricular wall thickness. The right ventricular systolic function is normal. There is a pacemaker lead in the right ventricle. ATRIA The left atrium is borderline dilated. The right atrium size is normal. There is a catheter/pacemaker lead seen in the right atrium. The interatrial septum is intact with no evidence for an atrial septal defect. AORTIC VALVE The aortic valve is thickened but opens well. There is moderate aortic regurgitation. There is no aortic valvular stenosis. There is no aortic valvular vegetation. MITRAL VALVE The mitral valve is thickened but opens well. Mitral regurgitation is mild. There is no mitral valve stenosis. There is no evidence of mitral valve prolapse. TRICUSPID VALVE The tricuspid valve leaflets are thickened , but open well. There is mild to moderate tricuspid regurgitation.Multiple Jets and AICD lead across tricuspid valve.RVSP-47 mmof hg. There is mild pulmonary hypertension. There is no tricuspid valve stenosis. There is no tricuspid valve prolapse or vegetation. PULMONIC VALVE The pulmonary valve is normal in structure. There is no pulmonic valvular regurgitation. There is no pulmonic valvular stenosis. GREAT VESSELS The aortic root is normal in size. The ascending aorta is normal in size. The pulmonary artery is normal. The IVC is normal in size and collapses >50% with inspiration. PERICARDIAL EFFUSION There is no pleural effusion. There is no pericardial effusion. <Conclusion> The left ventricle is normal size. There is borderline to mild concentric left ventricular hypertrophy. The systolic function is moderately impaired.EF-30-35% There is mild to moderate hypokinesis in the basal inferoseptal wall. There is moderate aortic regurgitation. Mitral regurgitation is mild. There is mild to moderate tricuspid regurgitation.Multiple Jets and AICD lead across tricuspid valve.RVSP-47 mmof hg. There is mild pulmonary hypertension. The IVC is normal in size and collapses >50% with inspiration. There is no pericardial effusion. PPM/ AICD lead noted in RA/RV No vegetation or thrombus noted.
[2018-01-26] MEDS: Insulin Lispro (humaLOG) LOW Coverage SC SCH (17:00)
[2018-01-26] MEDS: levETIRAcetam 500mg IVPB 500 MG/100 ML BAG IV SCH (19:27)
[2018-01-26 21:09] LABS: BASO # 0.01 K/mm3 (0.0-2.0); BASO % 0.1 % (0.0-3.0); GRAN # 8.6 (1.4-6.5); GRAN % 87.3 % (50.0-68.0); HEMOGLOBIN 12.9 g/dL (12.0-16.0); LYMPH # 0.7 (1.2-3.4); LYMPH % 6.9 % (22.0-35.0); MEAN CELL VOLUME 95.5 fl (80.0-105.0); MEAN CORPUSCULAR HEMOGLOBIN 30.6 pg (25.0-35.0); MEAN PLATELET VOLUME 11.8 fl (7.0-11.0); MONO # 0.6 (0.1-0.6); MONO % 5.7 % (1.0-6.0); RBC 4.22 10^6/uL (3.5-6.1); RED CELL DISTRIBUTION WIDTH 14.7 % (11.5-14.5); WHITE BLOOD COUNT 9.9 10^3/ul (4.5-11.0)
[2018-01-26 21:12] LABS: VENOUS BLOOD GAS BASE EXCESS -5.2 mmol/L (0.0-2.0); VENOUS BLOOD GAS PO2 38 mm/Hg (30-55); VENOUS BLOOD PH 7.23 (7.32-7.43)
[2018-01-26 21:16] LABS: INR 1.1; PARTIAL THROMBOPLASTIN TIME 28.9 Seconds (25.1-36.5); PROTHROMBIN TIME 12.6 SECONDS (9.4-12.5)
[2018-01-26 21:20] LABS: ALB/GLOB RATIO 1.1 (1.1-1.8); ALBUMIN 2.8 g/dL (3.0-4.8); ALT/SGPT 56 U/L (7-56); AST/SGOT 76 U/L (14-36); BLOOD UREA NITROGEN 30 mg/dL (7-21); CALCIUM 7.4 mg/dL (8.4-10.5); GFR AFRICAN-AMERICAN > 60; GFR NON-AFRICAN AMERICAN > 60
[2018-01-27 03:45] LABS: BASO # 0.01 K/mm3 (0.0-2.0); BASO % 0.1 % (0.0-3.0); GRAN # 11.23 (1.4-6.5); GRAN % 88.8 % (50.0-68.0); HEMOGLOBIN 13.9 g/dL (12.0-16.0); LYMPH # 0.7 (1.2-3.4); LYMPH % 5.8 % (22.0-35.0); MEAN CELL VOLUME 94.1 fl (80.0-105.0); MEAN CORPUSCULAR HEMOGLOBIN 30.6 pg (25.0-35.0); MEAN CORPUSCULAR HGB CONC 32.6 g/dl (31.0-37.0); MEAN PLATELET VOLUME 11.6 fl (7.0-11.0); MONO # 0.7 (0.1-0.6); MONO % 5.3 % (1.0-6.0); RBC 4.54 10^6/uL (3.5-6.1); RED CELL DISTRIBUTION WIDTH 14.8 % (11.5-14.5); WHITE BLOOD COUNT 12.6 10^3/ul (4.5-11.0)
[2018-01-27 03:47] LABS: VENOUS BLOOD GAS BASE EXCESS -6.8 mmol/L (0.0-2.0); VENOUS BLOOD GAS PO2 28 mm/Hg (30-55)
[2018-01-27 03:57] LABS: VENOUS BLOOD PH 7.18 (7.32-7.43)
[2018-01-27 04:00] LABS: ALB/GLOB RATIO 1.2 (1.1-1.8); ALBUMIN 3.1 g/dL (3.0-4.8); ALT/SGPT 49 U/L (7-56); AST/SGOT 92 U/L (14-36); BLOOD UREA NITROGEN 31 mg/dL (7-21); CALCIUM 7.6 mg/dL (8.4-10.5); GFR AFRICAN-AMERICAN > 60; GFR NON-AFRICAN AMERICAN > 60
[2018-01-27] MEDS ORDERED: Magnesium Sulfate 1 gm in D5W 1 GM/100 ML BAG IVPB ONE (06:00)
[2018-01-27] MEDS: levETIRAcetam 500mg IVPB 500 MG/100 ML BAG IV SCH (06:07)
[2018-01-27] MEDS: Cefepime 1gm in NS 100ml 1 GM/100 ML BAG IVPB SCH ×2 (06:08→14:50)
[2018-01-27] MEDS: Insulin Lispro (humaLOG) LOW Coverage SC SCH ×5 (06:13→18:02)
--- NOTE | 2018-01-27 07:41 | CON ---
Copied To: Nestor Moore MD Attending MD: Nestor Moore MD DATE: 01/26/2018 LOCATION: The patient is seen earlier today in [facility], bed 2. CHIEF COMPLAINT: Respiratory failure x1 day. HISTORY OF PRESENT ILLNESS: This is an 87-year-old female with past medical history significant for dementia and congestive heart failure with a defibrillator, who had been having worsening of change in mental status, according to her three daughters who were present at the bedside. In the last few days, was found to [address] [place] [address], confused, that even further in usual dementia, was brought to the Emergency Room. The patient was combative, unable to give any history and the patient was found unresponsive, actually an ACLS protocol was initiated and patient now is intubated on a ventilator and she did have a PEA during the code and Infectious Disease consultation is requested. The patient is unable to give any history. REVIEW OF SYSTEMS: Obtained from the patient's family members. A 12-point review of systems is reported, it is felt that the patient has been having slight confusion at home, other than baseline dementia. There has been no fevers and chills, no history of frequency. No headaches or blurred vision, neck pain or sore throat. No abdominal pain, diarrhea or constipation was reported. PAST MEDICAL HISTORY: Significant for dementia, congestive heart failure. PAST SURGICAL HISTORY: Significant for defibrillator. MEDICATIONS: At home not available at this time. ALLERGIES: PATIENT HAS HAD NO KNOWN ALLERGIES. PHYSICAL EXAMINATION: VITAL SIGNS: On examination, patient's temperature is 95.2. The patient is intubated on a ventilator, unresponsive with a pulse of 57, it was up to 124 and respiratory rate on the vent, blood pressure is 99/60. NECK: Supple. LUNGS: Decreased breath sounds. HEART: Normal S1, S2. ABDOMEN: Soft, nontender. No organomegaly. No rebound. No guarding. No masses. LABORATORY DATA: Laboratory examination reveals a white count of 12,600, hemoglobin of 12, platelets of 178,000. The patient has 28% granulocytosis, 61% lymphocytosis and chemistries are noted and patient's troponin is 1.46 and creatinine is 1. Glucose is elevated. Urinalysis reveals many bacteria, 1 to 3 wbc's, 10 to 15 rbc's, trace of cast, coarse granular casts and 30 protein with a moderate blood. Dr. Gera Dos Santos's progress note is noted and reviewed. The patient has had a CT scan of the head: Chronic changes, no acute findings. She had a CAT scan of the abdomen an pelvis and chest which showed lung base is unremarkable. No consolidation and abdomen has at least 3-cm left adnexal cyst; extensive consolidation of both lungs, right worse than the left and air bronchogram, extensive pneumonia and the patient is started on doxycycline, Keppra, and Zosyn. ASSESSMENT AND PLAN: An 87-year-old female with dementia; congestive heart failure; defibrillator with respiratory failure, intubated on a ventilator; status post cardiac arrest with sepsis with bilateral community-acquired pneumonia. We will treat the patient with Maxipime and doxycycline and pending blood culture, urine culture, sputum culture and MRSA screen, urine for Legionella antigen and check on the procalcitonin. Overall prognosis is quite poor. Case discussed with the patient's granddaughter who is a nurse here in the hospital. Nestor Moore MD
[2018-01-27 07:45] LABS: VENOUS BLOOD GAS BASE EXCESS -5.8 mmol/L (0.0-2.0); VENOUS BLOOD GAS PO2 242 mm/Hg (30-55); VENOUS BLOOD PH 7.37 (7.32-7.43)
[2018-01-27] MEDS ORDERED: Magnesium Sulfate 2 gm/50 ml 2 GM/50 ML BAG IVPB ONE (07:54)
--- NOTE | 2018-01-27 08:57 | CP.PCM.PN ---
Subjective - Date & Time of Evaluation Date of Evaluation: 01/27/18 Time of Evaluation: 07:00 - Subjective Subjective: Gus Easton PGY2 Neurology Progress Note for Dr. Albright Patient was seen and examined at bedside in ICU. There were no acute overnight events. Family is at bedside. Per nursing staff and family, the patient continues to have episodes of twitching, that is slightly improved with giving Ativan. No other overnight events. The patient remains on hypothermia protocol and remains unresponsive off sedation and with absent gag, corneal, pupil reflexes. Objective - Vital Signs/Intake and Output Vital Signs (last 24 hours): Temp Pulse Resp BP Pulse Ox 90.7 F L 48 L 29 H 153/88 H 100 01/27/18 06:15 01/27/18 06:15 01/26/18 19:00 01/27/18 06:00 01/27/18 06:15 Intake and Output: 01/27/18 01/27/18 06:59 18:59 Intake Total 1490 Output Total 300 Balance 1190 - Medications Medications: Current Medications Doxycycline Hyclate 100 mg/ (Sodium Chloride) 100 mls @ 100 mls/hr IVPB Q12 DAVID PRN Reason: Protocol Last Admin: 01/26/18 21:42 Dose: 100 mls/hr Levetiracetam (Keppra 500mg Ivpb) 500 mg in 100 mls @ 400 mls/hr IV Q12H DAVID Last Admin: 01/27/18 06:07 Dose: 400 mls/hr Sodium Bicarbonate 75 meq/ (Sodium Chloride) 1,075 mls @ 100 mls/hr IV .[id number] DAVID Last Admin: 01/26/18 23:00 Dose: 100 mls/hr Cefepime HCl (Maxipime 1gm) 1 gm in 100 mls @ 100 mls/hr IVPB Q8 DAVID PRN Reason: Protocol Stop: 02/04/18 14:01 Last Admin: 01/27/18 06:08 Dose: 100 mls/hr Calcium Gluconate 1,000 mg/ (Sodium Chloride) 110 mls @ 110 mls/hr IVPB ONCE ONE Stop: 01/27/18 09:07 Insulin Human Lispro (Humalog Low) 0 units SC Q6H DAVID PRN Reason: Protocol Last Admin: 01/27/18 06:13 Dose: Not Given Lorazepam (Ativan) 1 mg IVP Q3 PRN; Protocol PRN Reason: Seizure activity Last Admin: 01/27/18 06:08 Dose: 1 mg Pantoprazole Sodium (Protonix Inj) 40 mg IVP DAILY DAVID Last Admin: 01/26/18 10:50 Dose: 40 mg - Labs Labs: 01/27/18 03:28 01/27/18 03:28 PT 12.6 SECONDS (9.4-12.5) H 01/26/18 21:04 INR 1.10 01/26/18 21:04 APTT 28.9 Seconds (25.1-36.5) 01/26/18 21:04 - Additional Findings Additional findings: - Constitutional Appears: Non-toxic - Head Exam Head Exam: NORMAL INSPECTION - Eye Exam Eye Exam: absent: PERRL Pupil Exam: Miosis - ENT Exam ENT Exam: Mucous Membranes Dry - Neck Exam Neck exam: Positive for: Normal Inspection - Respiratory Exam Respiratory Exam: Rhonchi (b/l), Wheezes (b/l) - Cardiovascular Exam Cardiovascular Exam: RRR, +S1, +S2 - GI/Abdominal Exam GI & Abdominal Exam: Normal Bowel Sounds, Soft. absent: Distended, Tenderness - Extremities Exam Extremities exam: Negative for: pedal edema - Neurological Exam Neurological exam: Altered Additional comments: unresponsive, off sedation no corneal reflex no gag reflex no vestibulo-ocular reflexes present (Tested by caloric stimulation test and a negative doll's eye test) decerebrate extended posturing at rest no response to sternal rub - Expanded Neurological Exam Expanded Cranial nerves: Gag Reflex: Abnormal Left, Abnormal Right Coma Scale Eye Opening: None Coma Scale Motor Response: None Coma Scale Verbal: None Coma Scale Total: 3 - Skin Skin Exam: Normal Color Assessment and Plan - Assessment and Plan (Free Text) Assessment: 87-year-old female with a PMH of CHF s/p defibrillator and dementia who presented to the ED brought in by EMS after being found wandering around, experienced asystole arrest in ED, ROSC obtained, with post-ROSC seizure-like activity, found to be burst suppression waves on EEG. . Patient is intubated, on vent, and is not responsive off sedation, with absence of reflexes that indicate brain injury likely due to anoxic injury. Plan: Severe encephalopathy as seen on EEG, likely 2/2 anoxic injury - increase Keppra from 500mg Q12 to 1000mg Q12 - Ativan PRN seizure-activity - MRI is preferred, but given defibrillator, it is unfeasible and not available at [facility] [place] - repeat CT Head showed no acute changes - brain flow study showed no arterial blood flow - repeat EEG ordered - family was offered transfer to another institution for continuous EEG monitoring but they declined - recommend continuing brain protocol by testing respiration off vent - echo showed impaired systolic function (EF30-35%), no vegetation noted, moderate AR - cardiology consulted, recs appreciated - defibrillator to be interrogated - ID is consulted, recs appreciated; procal is elevated - blood cx negative x24hrs, urine cultures negative final, and sputum cultures negative x24 hrs - cont Doxy and Cefepime per ID - blood, urine and sputum cultures pending - prognosis is poor, continue to comfort and provide family with information - continue ICU care - Further recs per Dr. Albright Case was reviewed and discussed with attending, Dr. Jose Ramon Easton PGY2
--- NOTE | 2018-01-27 09:08 | NM ---
Date of service: 01/26/2018 PROCEDURE: Nuclear medicine blood flow scan HISTORY: evaluate brain flow, r/o braindead COMPARISON: CT of the head 01/26/2018 TECHNIQUE: Sequential dynamic imaging after administration of 24 mCi of pertechnetate. FINDINGS: There is no arterial blood flow demonstrated. There is visualization of the sagittal sinus indicating some degree of intracranial blood flow. The report concurs with the preliminary [facility] report IMPRESSION: Visualization of the sagittal sinus consistent with intact intracranial flow
[2018-01-27 09:45] LABS: BASO # 0.01 K/mm3 (0.0-2.0); BASO % 0.1 % (0.0-3.0); GRAN # 11.85 (1.4-6.5); GRAN % 88.8 % (50.0-68.0); HEMOGLOBIN 12.4 g/dL (12.0-16.0); LYMPH # 0.9 (1.2-3.4); LYMPH % 6.4 % (22.0-35.0); MEAN CELL VOLUME 92.7 fl (80.0-105.0); MEAN CORPUSCULAR HGB CONC 32.4 g/dl (31.0-37.0); MONO # 0.6 (0.1-0.6); MONO % 4.7 % (1.0-6.0); RBC 4.13 10^6/uL (3.5-6.1); RED CELL DISTRIBUTION WIDTH 14.8 % (11.5-14.5); WHITE BLOOD COUNT 13.3 10^3/ul (4.5-11.0)
[2018-01-27 09:52] LABS: INR 1.31; PARTIAL THROMBOPLASTIN TIME 32.9 Seconds (25.1-36.5); PROTHROMBIN TIME 15.1 SECONDS (9.4-12.5)
--- NOTE | 2018-01-27 09:55 | CARD ---
APPROVED REPORT Date of service: 01/27/2018 EKG Measurement Heart [id number] <Conclusion> Sinus bradycardia Left Anterior Bhaart-Block. Left ventricular hypertrophy with QRS widening ST-T wave abnormality, consider inferior ischemia ST-T wave abnormality, consider anterolateral ischemia Prolonged QT. Abnormal ECG
--- NOTE | 2018-01-27 09:58 | CARD ---
APPROVED REPORT Date of service: 01/26/2018 EKG Measurement Heart [id number] <Conclusion> Sinus bradycardia Left Anterior Bharat-Block Left ventricular hypertrophy with QRS widening ST-T wave abnormality, consider inferior ischemia ST-T wave abnormality, consider anterolateral ischemia Prolonged QT Abnormal ECG
[2018-01-27] MEDS ORDERED: Vancomycin 1gm in NS 250ml 1 GM/250 ML BAG IVPB SCH (10:00)
[2018-01-27] MEDS ORDERED: Enoxaparin 40 mg Syringe SC SCH (10:00)
--- NOTE | 2018-01-27 10:15 | RAD ---
Date of service: 01/27/2018 HISTORY: Respiratory failure, evaluate for pneumonia COMPARISON: 01/26/2018. FINDINGS: Endotracheal tube terminates 3.3 cm proximal to the jaye. The nasogastric tube terminates in the stomach. LUNGS: The lungs are well inflated. There is worsening pulmonary edema in the right lung. The left lung is clear. PLEURA: Bilateral pleural effusions are now apparent, no pneumothorax apparent. CARDIOVASCULAR: Persistent mild cardiomegaly. There is stable position of left-sided pacemaker. OSSEOUS STRUCTURES: No significant abnormalities. VISUALIZED UPPER ABDOMEN: Normal. OTHER FINDINGS: None. IMPRESSION: Worsening pulmonary edema in the right lung and interval development of bilateral pleural effusions. Stable position of endotracheal tube. The nasogastric tube terminates in the stomach.
--- NOTE | 2018-01-27 11:04 | CP.CCUPN ---
<GarryDana - Last Filed: 01/27/18 11:01> CCU Subjective - Physician Review Events Since Last Encounter (Free Text): Dana Castañeda, PGY-1 ICU Progress Note Patient seen and examined at bedside this morning. No acute events overnight. Re -warming protocol initiated today morning. EEG today pending. DNR decision to be made today per family. ROS is limited due to nonresponsive patient off sedation. CCU Objective - Vital Signs / Intake & Output Intake and Output (Last 8hrs): Intake & Output 01/26/18 01/27/18 01/27/18 22:59 06:59 14:59 Intake Total 650 1490 Output Total 370 300 Balance 280 1190 Weight 140 lb Intake: IV 1490 Right Antecubital 690 Right External Jugular 800 Other 650 Output: Urine 370 300 Urethral (Mercado) 370 300 - Physical Exam Physical Exam Limitations: Positive for: Other (non responsive off sedation) Head: Positive for: Atraumatic, Normocephalic Pupils: Positive for: Sluggish, Pinpoint Conjunctiva: Positive for: Normal Mouth: Positive for: Moist Mucous Membranes Neck: Positive for: Normal Range of Motion Respiratory/Chest: Positive for: Clear to Auscultation, Good Air Exchange. Negative for: Respiratory Distress, Accessory Muscle Use Cardiovascular: Positive for: Normal S1, S2. Negative for: Murmurs Abdomen: Negative for: Tenderness, Distention, Peritoneal Signs Upper Extremity: Positive for: Normal Inspection. Negative for: Cyanosis, Edema Lower Extremity: Positive for: Normal Inspection. Negative for: Edema Neurological: Positive for: Other (non responsive off sedation) Skin: Positive for: Warm, Dry, Normal Color. Negative for: Rashes Psychiatric: Positive for: Other (non responsive) - Medications Active Medications: Active Medications Generic Name Dose Route Start Last Admin Trade Name Freq PRN Reason Stop Dose Admin Enoxaparin Sodium 40 mg 01/27/18 10:00 Lovenox SC DAILY DAVID Protocol Doxycycline Hyclate 100 mg/ 100 mls @ 100 mls/hr 01/26/18 10:00 01/27/18 09: 25 Sodium Chloride IVPB 100 mls/hr Q12 DAVID Administration Protocol Cefepime HCl 1 gm in 100 mls @ 100 mls/hr 01/26/18 14:00 01/27/18 06:08 Maxipime 1gm IVPB 02/04/18 14:01 100 mls/hr Q8 DAVID Administration Protocol Vancomycin HCl 1 gm in 250 mls @ 167 mls/hr 01/27/18 10:00 Vancomycin 1gm IVPB Q12H [facility] Protocol Levetiracetam 1,000 mg/ Sodium 110 mls @ 460 mls/hr 01/27/18 22:00 Chloride IV Q12 DAVID Insulin Human Lispro 0 units 01/27/18 00:00 01/27/18 06:13 Humalog Low SC Not Given Q6H [facility] Protocol Lorazepam 1 mg 01/26/18 06:36 01/27/18 09:29 Ativan IVP 1 mg Q3 PRN Administration Seizure activity Protocol Pantoprazole Sodium 40 mg 01/26/18 10:00 01/27/18 09:20 Protonix Inj IVP 40 mg DAILY DAVID Administration - Patient Studies Lab Studies: Microbiology Studies 01/26/18 09:00 Blood Culture - Preliminary Blood NO GROWTH AFTER 24 HOURS 01/26/18 11:11 Urine Culture - Final Urine No Growth (<1,000 CFU/ML) 01/26/18 11:02 Gram Stain - Final Sputum Sputum Culture - Preliminary NORMAL ORAL HERNANDO Lab Studies 01/27/18 01/27/18 01/27/18 Range/Units 09:00 09:00 07:00 WBC 13.3 H (4.5-11.0) 10^3/ul RBC 4.13 (3.5-6.1) 10^6/uL Hgb 12.4 (12.0-16.0) g/dL Hct 38.3 (36.0-48.0) % MCV 92.7 (80.0-105.0) fl MCH 30.0 (25.0-35.0) pg MCHC 32.4 (31.0-37.0) g/dl RDW 14.8 H (11.5-14.5) % Plt Count 154 (120.0-450.0) 10^3/uL MPV 12.0 H (7.0-11.0) fl Gran % 88.8 H (50.0-68.0) % Lymph % (Auto) 6.4 L (22.0-35.0) % [place] % (Auto) 4.7 (1.0-6.0) % Eos % (Auto) 0.0 L (1.5-5.0) % Baso % (Auto) 0.1 (0.0-3.0) % Gran # 11.85 H (1.4-6.5) Lymph # (Auto) 0.9 L (1.2-3.4) [place] # (Auto) 0.6 (0.1-0.6) Eos # (Auto) 0.0 (0.0-0.7) Baso # (Auto) 0.01 (0.0-2.0) K/mm3 PT 15.1 H (9.4-12.5) SECONDS INR 1.31 APTT 32.9 (25.1-36.5) Seconds pCO2 (35-45) mm/Hg pO2 242 H (80-100) mm/Hg HCO3 (21-28) mmol/L ABG pH (7.35-7.45) ABG Total CO2 (22-28) mmol.L ABG O2 Saturation (95-98) % ABG Base Excess (-2.0-3.0) mmol/L ABG Potassium (3.6-5.2) mmol/L VBG pH 7.37 (7.32-7.43) VBG pCO2 32.0 L (40-60) VBG HCO3 18.5 L (21-28) mmol/l VBG Total CO2 19.5 L (22-28) mmol.L VBG O2 Sat (Calc) 99.8 H (40-65) % VBG Base Excess -5.8 L (0.0-2.0) mmol/L VBG Potassium 3.4 L (3.6-5.2) mmol/L Sodium 140.0 (132-148) mmol/L Chloride 112.0 H (98-107) mmol/L Glucose 198 H (65-105) mg/dl Lactate 1.9 (0.7-2.1) mmol/L Mechanical Rate FiO2 21.0 % Tidal Volume PEEP Potassium (3.6-5.0) mmol/L Carbon Dioxide (21-33) mmol/L Anion Gap (10-20) BUN (7-21) mg/dL Creatinine (0.7-1.2) mg/dl Est GFR ( Amer) Est GFR (Non-Af Amer) POC Glucose (mg/dL) (65-110) mg/dL Random Glucose (70-110) mg/dL Hemoglobin A1c (4.2-6.5) % Calcium (8.4-10.5) mg/dL Phosphorus (2.5-4.5) mg/dL Magnesium (1.7-2.2) mg/dL Total Bilirubin (0.2-1.3) mg/dL AST (14-36) U/L ALT (7-56) U/L Alkaline Phosphatase (38-126) U/L Troponin I ng/mL Total Protein (5.8-8.3) g/dL Albumin (3.0-4.8) g/dL Globulin gm/dL Albumin/Globulin Ratio (1.1-1.8) Procalcitonin (0.19-0.49) NG/ML Arterial Blood Potassium (3.6-5.2) mmol/L Venous Blood Potassium 3.4 L (3.6-5.2) mmol/L Urine Color (YELLOW) Urine Appearance (CLEAR) Urine pH (4.7-8.0) Ur Specific [place] (1.005-1.035) Urine Protein (<30 mg/dL) mg/dL Urine Glucose (UA) (NEGATIVE) mg/dL Urine Ketones (NEGATIVE) mg/dL Urine Blood (NEGATIVE) Urine Nitrate (NEGATIVE) Urine Bilirubin (NEGATIVE) Urine Urobilinogen (<1 E.U./dL) E.U./dL Ur Leukocyte Esterase (NEGATIVE) [place]/uL Urine RBC (0-2) /hpf Urine WBC (0-6) /hpf Ur Epithelial Cells (0-5) /hpf Amorphous Sediment Urine Bacteria (NEG) Fine Granular Casts (0-2) /hpf Coarse Granular Casts (0-2) /hpf Urine Other 01/27/18 01/27/18 01/27/18 Range/Units 06:12 03:28 03:28 WBC (4.5-11.0) 10^3/ul RBC (3.5-6.1) 10^6/uL Hgb (12.0-16.0) g/dL Hct (36.0-48.0) % MCV (80.0-105.0) fl MCH (25.0-35.0) pg MCHC (31.0-37.0) g/dl RDW (11.5-14.5) % Plt Count (120.0-450.0) 10^3/uL MPV (7.0-11.0) fl Gran % (50.0-68.0) % Lymph % (Auto) (22.0-35.0) % [place] % (Auto) (1.0-6.0) % Eos % (Auto) (1.5-5.0) % Baso % (Auto) (0.0-3.0) % Gran # (1.4-6.5) Lymph # (Auto) (1.2-3.4) [place] # (Auto) (0.1-0.6) Eos # (Auto) (0.0-0.7) Baso # (Auto) (0.0-2.0) K/mm3 PT (9.4-12.5) SECONDS INR APTT (25.1-36.5) Seconds pCO2 (35-45) mm/Hg pO2 28 L (80-100) mm/Hg HCO3 (21-28) mmol/L ABG pH (7.35-7.45) ABG Total CO2 (22-28) mmol.L ABG O2 Saturation (95-98) % ABG Base Excess (-2.0-3.0) mmol/L ABG Potassium (3.6-5.2) mmol/L VBG pH 7.18 L* (7.32-7.43) VBG pCO2 60.0 (40-60) VBG HCO3 22.4 (21-28) mmol/l VBG Total CO2 24.2 (22-28) mmol.L VBG O2 Sat (Calc) 50.6 (40-65) % VBG Base Excess -6.8 L (0.0-2.0) mmol/L VBG Potassium 3.7 (3.6-5.2) mmol/L Sodium 145 142.0 (132-148) mmol/L Chloride 110 H 108.0 H (98-107) mmol/L Glucose 180 H (65-105) mg/dl Lactate 3.4 H (0.7-2.1) mmol/L Mechanical Rate FiO2 21.0 % Tidal Volume PEEP Potassium 4.1 (3.6-5.0) mmol/L Carbon Dioxide 23 (21-33) mmol/L Anion Gap 16 (10-20) BUN 31 H (7-21) mg/dL Creatinine 0.6 L (0.7-1.2) mg/dl Est GFR ( Amer) > 60 Est GFR (Non-Af Amer) > 60 POC Glucose (mg/dL) 149 H (65-110) mg/dL Random Glucose 168 H (70-110) mg/dL Hemoglobin A1c (4.2-6.5) % Calcium 7.6 L (8.4-10.5) mg/dL Phosphorus 4.0 (2.5-4.5) mg/dL Magnesium 1.6 L (1.7-2.2) mg/dL Total Bilirubin 0.5 (0.2-1.3) mg/dL AST 92 H D (14-36) U/L ALT 49 (7-56) U/L Alkaline Phosphatase 83 (38-126) U/L Troponin I ng/mL Total Protein 5.8 (5.8-8.3) g/dL Albumin 3.1 (3.0-4.8) g/dL Globulin 2.7 gm/dL Albumin/Globulin Ratio 1.2 (1.1-1.8) Procalcitonin (0.19-0.49) NG/ML Arterial Blood Potassium (3.6-5.2) mmol/L Venous Blood Potassium 3.7 (3.6-5.2) mmol/L Urine Color (YELLOW) Urine Appearance (CLEAR) Urine pH (4.7-8.0) Ur Specific [place] (1.005-1.035) Urine Protein (<30 mg/dL) mg/dL Urine Glucose (UA) (NEGATIVE) mg/dL Urine Ketones (NEGATIVE) mg/dL Urine Blood (NEGATIVE) Urine Nitrate (NEGATIVE) Urine Bilirubin (NEGATIVE) Urine Urobilinogen (<1 E.U./dL) E.U./dL Ur Leukocyte Esterase (NEGATIVE) [place]/uL Urine RBC (0-2) /hpf Urine WBC (0-6) /hpf Ur Epithelial Cells (0-5) /hpf Amorphous Sediment Urine Bacteria (NEG) Fine Granular Casts (0-2) /hpf Coarse Granular Casts (0-2) /hpf Urine Other 01/27/18 01/27/18 01/26/18 Range/Units 03:28 00:05 21:04 WBC 12.6 H D (4.5-11.0) 10^3/ul RBC 4.54 (3.5-6.1) 10^6/uL Hgb 13.9 (12.0-16.0) g/dL Hct 42.7 (36.0-48.0) % MCV 94.1 (80.0-105.0) fl MCH 30.6 (25.0-35.0) pg MCHC 32.6 (31.0-37.0) g/dl RDW 14.8 H (11.5-14.5) % Plt Count 176 (120.0-450.0) 10^3/uL MPV 11.6 H (7.0-11.0) fl Gran % 88.8 H (50.0-68.0) % Lymph % (Auto) 5.8 L (22.0-35.0) % [place] % (Auto) 5.3 (1.0-6.0) % Eos % (Auto) 0.0 L (1.5-5.0) % Baso % (Auto) 0.1 (0.0-3.0) % Gran # 11.23 H (1.4-6.5) Lymph # (Auto) 0.7 L (1.2-3.4) [place] # (Auto) 0.7 H (0.1-0.6) Eos # (Auto) 0.0 (0.0-0.7) Baso # (Auto) 0.01 (0.0-2.0) K/mm3 PT (9.4-12.5) SECONDS INR APTT (25.1-36.5) Seconds pCO2 (35-45) mm/Hg pO2 (80-100) mm/Hg HCO3 (21-28) mmol/L ABG pH (7.35-7.45) ABG Total CO2 (22-28) mmol.L ABG O2 Saturation (95-98) % ABG Base Excess (-2.0-3.0) mmol/L ABG Potassium (3.6-5.2) mmol/L VBG pH (7.32-7.43) VBG pCO2 (40-60) VBG HCO3 (21-28) mmol/l VBG Total CO2 (22-28) mmol.L VBG O2 Sat (Calc) (40-65) % VBG Base Excess (0.0-2.0) mmol/L VBG Potassium (3.6-5.2) mmol/L Sodium 145 (132-148) mmol/L Chloride 114 H (98-107) mmol/L Glucose (65-105) mg/dl Lactate (0.7-2.1) mmol/L Mechanical Rate FiO2 % Tidal Volume PEEP Potassium 4.1 (3.6-5.0) mmol/L Carbon Dioxide 21 (21-33) mmol/L Anion Gap 14 (10-20) BUN 30 H (7-21) mg/dL Creatinine 0.7 (0.7-1.2) mg/dl Est GFR ( Amer) > 60 Est GFR (Non-Af Amer) > 60 POC Glucose (mg/dL) 161 H (65-110) mg/dL Random Glucose 153 H (70-110) mg/dL Hemoglobin A1c (4.2-6.5) % Calcium 7.4 L (8.4-10.5) mg/dL Phosphorus 4.0 (2.5-4.5) mg/dL Magnesium 1.8 (1.7-2.2) mg/dL Total Bilirubin 0.5 (0.2-1.3) mg/dL AST 76 H D (14-36) U/L ALT 56 (7-56) U/L Alkaline Phosphatase 76 (38-126) U/L Troponin I ng/mL Total Protein 5.3 L (5.8-8.3) g/dL Albumin 2.8 L (3.0-4.8) g/dL Globulin 2.5 gm/dL Albumin/Globulin Ratio 1.1 (1.1-1.8) Procalcitonin (0.19-0.49) NG/ML Arterial Blood Potassium (3.6-5.2) mmol/L Venous Blood Potassium (3.6-5.2) mmol/L Urine Color (YELLOW) Urine Appearance (CLEAR) Urine pH (4.7-8.0) Ur Specific [place] (1.005-1.035) Urine Protein (<30 mg/dL) mg/dL Urine Glucose (UA) (NEGATIVE) mg/dL Urine Ketones (NEGATIVE) mg/dL Urine Blood (NEGATIVE) Urine Nitrate (NEGATIVE) Urine Bilirubin (NEGATIVE) Urine Urobilinogen (<1 E.U./dL) E.U./dL Ur Leukocyte Esterase (NEGATIVE) [place]/uL Urine RBC (0-2) /hpf Urine WBC (0-6) /hpf Ur Epithelial Cells (0-5) /hpf Amorphous Sediment Urine Bacteria (NEG) Fine Granular Casts (0-2) /hpf Coarse Granular Casts (0-2) /hpf Urine Other 01/26/18 01/26/18 01/26/18 Range/Units 21:04 21:04 21:04 WBC 9.9 D (4.5-11.0) 10^3/ul RBC 4.22 (3.5-6.1) 10^6/uL Hgb 12.9 (12.0-16.0) g/dL Hct 40.3 (36.0-48.0) % MCV 95.5 D (80.0-105.0) fl MCH 30.6 (25.0-35.0) pg MCHC 32.0 (31.0-37.0) g/dl RDW 14.7 H (11.5-14.5) % Plt Count 153 (120.0-450.0) 10^3/uL MPV 11.8 H (7.0-11.0) fl Gran % 87.3 H (50.0-68.0) % Lymph % (Auto) 6.9 L (22.0-35.0) % [place] % (Auto) 5.7 (1.0-6.0) % Eos % (Auto) 0.0 L (1.5-5.0) % Baso % (Auto) 0.1 (0.0-3.0) % Gran # 8.60 H (1.4-6.5) Lymph # (Auto) 0.7 L (1.2-3.4) [place] # (Auto) 0.6 (0.1-0.6) Eos # (Auto) 0.0 (0.0-0.7) Baso # (Auto) 0.01 (0.0-2.0) K/mm3 PT 12.6 H (9.4-12.5) SECONDS INR 1.10 APTT 28.9 (25.1-36.5) Seconds pCO2 (35-45) mm/Hg pO2 38 (80-100) mm/Hg HCO3 (21-28) mmol/L ABG pH (7.35-7.45) ABG Total CO2 (22-28) mmol.L ABG O2 Saturation (95-98) % ABG Base Excess (-2.0-3.0) mmol/L ABG Potassium (3.6-5.2) mmol/L VBG pH 7.23 L (7.32-7.43) VBG pCO2 55.0 (40-60) VBG HCO3 23.0 (21-28) mmol/l VBG Total CO2 24.7 (22-28) mmol.L VBG O2 Sat (Calc) 61.4 (40-65) % VBG Base Excess -5.2 L (0.0-2.0) mmol/L VBG Potassium 3.8 (3.6-5.2) mmol/L Sodium 145.0 (132-148) mmol/L Chloride 112.0 H (98-107) mmol/L Glucose 167 H (65-105) mg/dl Lactate 4.0 H* (0.7-2.1) mmol/L Mechanical Rate FiO2 21.0 % Tidal Volume PEEP Potassium (3.6-5.0) mmol/L Carbon Dioxide (21-33) mmol/L Anion Gap (10-20) BUN (7-21) mg/dL Creatinine (0.7-1.2) mg/dl Est GFR ( Amer) Est GFR (Non-Af Amer) POC Glucose (mg/dL) (65-110) mg/dL Random Glucose (70-110) mg/dL Hemoglobin A1c (4.2-6.5) % Calcium (8.4-10.5) mg/dL Phosphorus (2.5-4.5) mg/dL Magnesium (1.7-2.2) mg/dL Total Bilirubin (0.2-1.3) mg/dL AST (14-36) U/L ALT (7-56) U/L Alkaline Phosphatase (38-126) U/L Troponin I ng/mL Total Protein (5.8-8.3) g/dL Albumin (3.0-4.8) g/dL Globulin gm/dL Albumin/Globulin Ratio (1.1-1.8) Procalcitonin (0.19-0.49) NG/ML Arterial Blood Potassium (3.6-5.2) mmol/L Venous Blood Potassium 3.8 (3.6-5.2) mmol/L Urine Color (YELLOW) Urine Appearance (CLEAR) Urine pH (4.7-8.0) Ur Specific [place] (1.005-1.035) Urine Protein (<30 mg/dL) mg/dL Urine Glucose (UA) (NEGATIVE) mg/dL Urine Ketones (NEGATIVE) mg/dL Urine Blood (NEGATIVE) Urine Nitrate (NEGATIVE) Urine Bilirubin (NEGATIVE) Urine Urobilinogen (<1 E.U./dL) E.U./dL Ur Leukocyte Esterase (NEGATIVE) [place]/uL Urine RBC (0-2) /hpf Urine WBC (0-6) /hpf Ur Epithelial Cells (0-5) /hpf Amorphous Sediment Urine Bacteria (NEG) Fine Granular Casts (0-2) /hpf Coarse Granular Casts (0-2) /hpf Urine Other 01/26/18 01/26/18 01/26/18 Range/Units 20:14 16:50 15:15 WBC (4.5-11.0) 10^3/ul RBC (3.5-6.1) 10^6/uL Hgb (12.0-16.0) g/dL Hct (36.0-48.0) % MCV (80.0-105.0) fl MCH (25.0-35.0) pg MCHC (31.0-37.0) g/dl RDW (11.5-14.5) % Plt Count (120.0-450.0) 10^3/uL MPV (7.0-11.0) fl Gran % (50.0-68.0) % Lymph % (Auto) (22.0-35.0) % [place] % (Auto) (1.0-6.0) % Eos % (Auto) (1.5-5.0) % Baso % (Auto) (0.0-3.0) % Gran # (1.4-6.5) Lymph # (Auto) (1.2-3.4) [place] # (Auto) (0.1-0.6) Eos # (Auto) (0.0-0.7) Baso # (Auto) (0.0-2.0) K/mm3 PT (9.4-12.5) SECONDS INR APTT (25.1-36.5) Seconds pCO2 (35-45) mm/Hg pO2 (80-100) mm/Hg HCO3 (21-28) mmol/L ABG pH (7.35-7.45) ABG Total CO2 (22-28) mmol.L ABG O2 Saturation (95-98) % ABG Base Excess (-2.0-3.0) mmol/L ABG Potassium (3.6-5.2) mmol/L VBG pH (7.32-7.43) VBG pCO2 (40-60) VBG HCO3 (21-28) mmol/l VBG Total CO2 (22-28) mmol.L VBG O2 Sat (Calc) (40-65) % VBG Base Excess (0.0-2.0) mmol/L VBG Potassium (3.6-5.2) mmol/L Sodium (132-148) mmol/L Chloride (98-107) mmol/L Glucose (65-105) mg/dl Lactate (0.7-2.1) mmol/L Mechanical Rate FiO2 % Tidal Volume PEEP Potassium (3.6-5.0) mmol/L Carbon Dioxide (21-33) mmol/L Anion Gap (10-20) BUN (7-21) mg/dL Creatinine (0.7-1.2) mg/dl Est GFR ( Amer) Est GFR (Non-Af Amer) POC Glucose (mg/dL) 153 H 181 H (65-110) mg/dL Random Glucose (70-110) mg/dL Hemoglobin A1c (4.2-6.5) % Calcium (8.4-10.5) mg/dL Phosphorus (2.5-4.5) mg/dL Magnesium (1.7-2.2) mg/dL Total Bilirubin (0.2-1.3) mg/dL AST (14-36) U/L ALT (7-56) U/L Alkaline Phosphatase (38-126) U/L Troponin I 1.86 H* D ng/mL Total Protein (5.8-8.3) g/dL Albumin (3.0-4.8) g/dL Globulin gm/dL Albumin/Globulin Ratio (1.1-1.8) Procalcitonin (0.19-0.49) NG/ML Arterial Blood Potassium (3.6-5.2) mmol/L Venous Blood Potassium (3.6-5.2) mmol/L Urine Color (YELLOW) Urine Appearance (CLEAR) Urine pH (4.7-8.0) Ur Specific [place] (1.005-1.035) Urine Protein (<30 mg/dL) mg/dL Urine Glucose (UA) (NEGATIVE) mg/dL Urine Ketones (NEGATIVE) mg/dL Urine Blood (NEGATIVE) Urine Nitrate (NEGATIVE) Urine Bilirubin (NEGATIVE) Urine Urobilinogen (<1 E.U./dL) E.U./dL Ur Leukocyte Esterase (NEGATIVE) [place]/uL Urine RBC (0-2) /hpf Urine WBC (0-6) /hpf Ur Epithelial Cells (0-5) /hpf Amorphous Sediment Urine Bacteria (NEG) Fine Granular Casts (0-2) /hpf Coarse Granular Casts (0-2) /hpf Urine Other 01/26/18 01/26/18 01/26/18 Range/Units 12:26 11:42 11:11 WBC (4.5-11.0) 10^3/ul RBC (3.5-6.1) 10^6/uL Hgb (12.0-16.0) g/dL Hct (36.0-48.0) % MCV (80.0-105.0) fl MCH (25.0-35.0) pg MCHC (31.0-37.0) g/dl RDW (11.5-14.5) % Plt Count (120.0-450.0) 10^3/uL MPV (7.0-11.0) fl Gran % (50.0-68.0) % Lymph % (Auto) (22.0-35.0) % [place] % (Auto) (1.0-6.0) % Eos % (Auto) (1.5-5.0) % Baso % (Auto) (0.0-3.0) % Gran # (1.4-6.5) Lymph # (Auto) (1.2-3.4) [place] # (Auto) (0.1-0.6) Eos # (Auto) (0.0-0.7) Baso # (Auto) (0.0-2.0) K/mm3 PT (9.4-12.5) SECONDS INR APTT (25.1-36.5) Seconds pCO2 47 H (35-45) mm/Hg pO2 121.0 H (80-100) mm/Hg HCO3 19.2 L (21-28) mmol/L ABG pH 7.22 L (7.35-7.45) ABG Total CO2 20.6 L (22-28) mmol.L ABG O2 Saturation 99.8 H (95-98) % ABG Base Excess -8.5 L (-2.0-3.0) mmol/L ABG Potassium 3.7 (3.6-5.2) mmol/L VBG pH (7.32-7.43) VBG pCO2 (40-60) VBG HCO3 (21-28) mmol/l VBG Total CO2 (22-28) mmol.L VBG O2 Sat (Calc) (40-65) % VBG Base Excess (0.0-2.0) mmol/L VBG Potassium (3.6-5.2) mmol/L Sodium 142.0 (132-148) mmol/L Chloride 116.0 H (98-107) mmol/L Glucose 191 H (65-105) mg/dl Lactate 1.6 (0.7-2.1) mmol/L Mechanical Rate 15 FiO2 100.0 % Tidal Volume 400 PEEP 5 Potassium (3.6-5.0) mmol/L Carbon Dioxide (21-33) mmol/L Anion Gap (10-20) BUN (7-21) mg/dL Creatinine (0.7-1.2) mg/dl Est GFR ( Amer) Est GFR (Non-Af Amer) POC Glucose (mg/dL) 188 H (65-110) mg/dL Random Glucose (70-110) mg/dL Hemoglobin A1c (4.2-6.5) % Calcium (8.4-10.5) mg/dL Phosphorus (2.5-4.5) mg/dL Magnesium (1.7-2.2) mg/dL Total Bilirubin (0.2-1.3) mg/dL AST (14-36) U/L ALT (7-56) U/L Alkaline Phosphatase (38-126) U/L Troponin I ng/mL Total Protein (5.8-8.3) g/dL Albumin (3.0-4.8) g/dL Globulin gm/dL Albumin/Globulin Ratio (1.1-1.8) Procalcitonin (0.19-0.49) NG/ML Arterial Blood Potassium 3.7 (3.6-5.2) mmol/L Venous Blood Potassium (3.6-5.2) mmol/L Urine Color Yellow (YELLOW) Urine Appearance Clear (CLEAR) Urine pH 6.0 (4.7-8.0) Ur Specific [place] 1.025 (1.005-1.035) Urine Protein 30 H (<30 mg/dL) mg/dL Urine Glucose (UA) Negative (NEGATIVE) mg/dL Urine Ketones Negative (NEGATIVE) mg/dL Urine Blood Moderate H (NEGATIVE) Urine Nitrate Negative (NEGATIVE) Urine Bilirubin Negative (NEGATIVE) Urine Urobilinogen 0.2 (<1 E.U./dL) E.U./dL Ur Leukocyte Esterase Negative (NEGATIVE) [place]/uL Urine RBC 10 - 15 (0-2) /hpf Urine WBC 1 - 3 (0-6) /hpf Ur Epithelial Cells 4 - 5 (0-5) /hpf Amorphous Sediment Few Urine Bacteria Many (NEG) Fine Granular Casts 0 - 2 (0-2) /hpf Coarse Granular Casts Trace H (0-2) /hpf Urine Other Uyeast 01/26/18 01/26/18 Range/Units 09:02 05:00 WBC (4.5-11.0) 10^3/ul RBC (3.5-6.1) 10^6/uL Hgb (12.0-16.0) g/dL Hct (36.0-48.0) % MCV (80.0-105.0) fl MCH (25.0-35.0) pg MCHC (31.0-37.0) g/dl RDW (11.5-14.5) % Plt Count (120.0-450.0) 10^3/uL MPV (7.0-11.0) fl Gran % (50.0-68.0) % Lymph % (Auto) (22.0-35.0) % [place] % (Auto) (1.0-6.0) % Eos % (Auto) (1.5-5.0) % Baso % (Auto) (0.0-3.0) % Gran # (1.4-6.5) Lymph # (Auto) (1.2-3.4) [place] # (Auto) (0.1-0.6) Eos # (Auto) (0.0-0.7) Baso # (Auto) (0.0-2.0) K/mm3 PT (9.4-12.5) SECONDS INR APTT (25.1-36.5) Seconds pCO2 (35-45) mm/Hg pO2 (80-100) mm/Hg HCO3 (21-28) mmol/L ABG pH (7.35-7.45) ABG Total CO2 (22-28) mmol.L ABG O2 Saturation (95-98) % ABG Base Excess (-2.0-3.0) mmol/L ABG Potassium (3.6-5.2) mmol/L VBG pH (7.32-7.43) VBG pCO2 (40-60) VBG HCO3 (21-28) mmol/l VBG Total CO2 (22-28) mmol.L VBG O2 Sat (Calc) (40-65) % VBG Base Excess (0.0-2.0) mmol/L VBG Potassium (3.6-5.2) mmol/L Sodium (132-148) mmol/L Chloride (98-107) mmol/L Glucose (65-105) mg/dl Lactate (0.7-2.1) mmol/L Mechanical Rate FiO2 % Tidal Volume PEEP Potassium (3.6-5.0) mmol/L Carbon Dioxide (21-33) mmol/L Anion Gap (10-20) BUN (7-21) mg/dL Creatinine (0.7-1.2) mg/dl Est GFR ( Amer) Est GFR (Non-Af Amer) POC Glucose (mg/dL) (65-110) mg/dL Random Glucose (70-110) mg/dL Hemoglobin A1c 6.8 H (4.2-6.5) % Calcium (8.4-10.5) mg/dL Phosphorus (2.5-4.5) mg/dL Magnesium (1.7-2.2) mg/dL Total Bilirubin (0.2-1.3) mg/dL AST (14-36) U/L ALT (7-56) U/L Alkaline Phosphatase (38-126) U/L Troponin I ng/mL Total Protein (5.8-8.3) g/dL Albumin (3.0-4.8) g/dL Globulin gm/dL Albumin/Globulin Ratio (1.1-1.8) Procalcitonin 3.30 H (0.19-0.49) NG/ML Arterial Blood Potassium (3.6-5.2) mmol/L Venous Blood Potassium (3.6-5.2) mmol/L Urine Color (YELLOW) Urine Appearance (CLEAR) Urine pH (4.7-8.0) Ur Specific [place] (1.005-1.035) Urine Protein (<30 mg/dL) mg/dL Urine Glucose (UA) (NEGATIVE) mg/dL Urine Ketones (NEGATIVE) mg/dL Urine Blood (NEGATIVE) Urine Nitrate (NEGATIVE) Urine Bilirubin (NEGATIVE) Urine Urobilinogen (<1 E.U./dL) E.U./dL Ur Leukocyte Esterase (NEGATIVE) [place]/uL Urine RBC (0-2) /hpf Urine WBC (0-6) /hpf Ur Epithelial Cells (0-5) /hpf Amorphous Sediment Urine Bacteria (NEG) Fine Granular Casts (0-2) /hpf Coarse Granular Casts (0-2) /hpf Urine Other Laboratory Results - last 24 hr 01/26/18 01/26/18 01/26/18 05:00 09:02 11:11 WBC RBC Hgb Hct MCV MCH MCHC RDW Plt Count MPV Gran % Lymph % (Auto) [place] % (Auto) Eos % (Auto) Baso % (Auto) Gran # Lymph # (Auto) [place] # (Auto) Eos # (Auto) Baso # (Auto) PT INR APTT pCO2 pO2 HCO3 ABG pH ABG Total CO2 ABG O2 Saturation ABG Base Excess ABG Potassium VBG pH VBG pCO2 VBG HCO3 VBG Total CO2 VBG O2 Sat (Calc) VBG Base Excess VBG Potassium Sodium Chloride Glucose Lactate Mechanical Rate FiO2 Tidal Volume PEEP Potassium Carbon Dioxide Anion Gap BUN Creatinine Est GFR ( Amer) Est GFR (Non-Af Amer) POC Glucose (mg/dL) Random Glucose Hemoglobin A1c 6.8 H Calcium Phosphorus Magnesium Total Bilirubin AST ALT Alkaline Phosphatase Troponin I Total Protein Albumin Globulin Albumin/Globulin Ratio Procalcitonin 3.30 H Arterial Blood Potassium Venous Blood Potassium Urine Color Yellow Urine Appearance Clear Urine pH 6.0 Ur Specific [place] 1.025 Urine Protein 30 H Urine Glucose (UA) Negative Urine Ketones Negative Urine Blood Moderate H Urine Nitrate Negative Urine Bilirubin Negative Urine Urobilinogen 0.2 Ur Leukocyte Esterase Negative Urine RBC 10 - 15 Urine WBC 1 - 3 Ur Epithelial Cells 4 - 5 Amorphous Sediment Few Urine Bacteria Many Fine Granular Casts 0 - 2 Coarse Granular Casts Trace H Urine Other Uyeast 01/26/18 01/26/18 01/26/18 11:42 12:26 15:15 WBC RBC Hgb Hct MCV MCH MCHC RDW Plt Count MPV Gran % Lymph % (Auto) [place] % (Auto) Eos % (Auto) Baso % (Auto) Gran # Lymph # (Auto) [place] # (Auto) Eos # (Auto) Baso # (Auto) PT INR APTT pCO2 47 H pO2 121.0 H HCO3 19.2 L ABG pH 7.22 L ABG Total CO2 20.6 L ABG O2 Saturation 99.8 H ABG Base Excess -8.5 L ABG Potassium 3.7 VBG pH VBG pCO2 VBG HCO3 VBG Total CO2 VBG O2 Sat (Calc) VBG Base Excess VBG Potassium Sodium 142.0 Chloride 116.0 H Glucose 191 H Lactate 1.6 Mechanical Rate 15 FiO2 100.0 Tidal Volume 400 PEEP 5 Potassium Carbon Dioxide Anion Gap BUN Creatinine Est GFR ( Amer) Est GFR (Non-Af Amer) POC Glucose (mg/dL) 188 H Random Glucose Hemoglobin A1c Calcium Phosphorus Magnesium Total Bilirubin AST ALT Alkaline Phosphatase Troponin I 1.86 H* D Total Protein Albumin Globulin Albumin/Globulin Ratio Procalcitonin Arterial Blood Potassium 3.7 Venous Blood Potassium Urine Color Urine Appearance Urine pH Ur Specific [place] Urine Protein Urine Glucose (UA) Urine Ketones Urine Blood Urine Nitrate Urine Bilirubin Urine Urobilinogen Ur Leukocyte Esterase Urine RBC Urine WBC Ur Epithelial Cells Amorphous Sediment Urine Bacteria Fine Granular Casts Coarse Granular Casts Urine Other 01/26/18 01/26/18 01/26/18 16:50 20:14 21:04 WBC 9.9 D RBC 4.22 Hgb 12.9 Hct 40.3 MCV 95.5 D MCH 30.6 MCHC 32.0 RDW 14.7 H Plt Count 153 MPV 11.8 H Gran % 87.3 H Lymph % (Auto) 6.9 L [place] % (Auto) 5.7 Eos % (Auto) 0.0 L Baso % (Auto) 0.1 Gran # 8.60 H Lymph # (Auto) 0.7 L [place] # (Auto) 0.6 Eos # (Auto) 0.0 Baso # (Auto) 0.01 PT INR APTT pCO2 pO2 HCO3 ABG pH ABG Total CO2 ABG O2 Saturation ABG Base Excess ABG Potassium VBG pH VBG pCO2 VBG HCO3 VBG Total CO2 VBG O2 Sat (Calc) VBG Base Excess VBG Potassium Sodium Chloride Glucose Lactate Mechanical Rate FiO2 Tidal Volume PEEP Potassium Carbon Dioxide Anion Gap BUN Creatinine Est GFR ( Amer) Est GFR (Non-Af Amer) POC Glucose (mg/dL) 181 H 153 H Random Glucose Hemoglobin A1c Calcium Phosphorus Magnesium Total Bilirubin AST ALT Alkaline Phosphatase Troponin I Total Protein Albumin Globulin Albumin/Globulin Ratio Procalcitonin Arterial Blood Potassium Venous Blood Potassium Urine Color Urine Appearance Urine pH Ur Specific [place] Urine Protein Urine Glucose (UA) Urine Ketones Urine Blood Urine Nitrate Urine Bilirubin Urine Urobilinogen Ur Leukocyte Esterase Urine RBC Urine WBC Ur Epithelial Cells Amorphous Sediment Urine Bacteria Fine Granular Casts Coarse Granular Casts Urine Other 01/26/18 01/26/18 01/26/18 21:04 21:04 21:04 WBC RBC Hgb Hct MCV MCH MCHC RDW Plt Count MPV Gran % Lymph % (Auto) [place] % (Auto) Eos % (Auto) Baso % (Auto) Gran # Lymph # (Auto) [place] # (Auto) Eos # (Auto) Baso # (Auto) PT 12.6 H INR 1.10 APTT 28.9 pCO2 pO2 38 HCO3 ABG pH ABG Total CO2 ABG O2 Saturation ABG Base Excess ABG Potassium VBG pH 7.23 L VBG pCO2 55.0 VBG HCO3 23.0 VBG Total CO2 24.7 VBG O2 Sat (Calc) 61.4 VBG Base Excess -5.2 L VBG Potassium 3.8 Sodium 145.0 145 Chloride 112.0 H 114 H Glucose 167 H Lactate 4.0 H* Mechanical Rate FiO2 21.0 Tidal Volume PEEP Potassium 4.1 Carbon Dioxide 21 Anion Gap 14 BUN 30 H Creatinine 0.7 Est GFR ( Amer) > 60 Est GFR (Non-Af Amer) > 60 POC Glucose (mg/dL) Random Glucose 153 H Hemoglobin A1c Calcium 7.4 L Phosphorus 4.0 Magnesium 1.8 Total Bilirubin 0.5 AST 76 H D ALT 56 Alkaline Phosphatase 76 Troponin I Total Protein 5.3 L Albumin 2.8 L Globulin 2.5 Albumin/Globulin Ratio 1.1 Procalcitonin Arterial Blood Potassium Venous Blood Potassium 3.8 Urine Color Urine Appearance Urine pH Ur Specific [place] Urine Protein Urine Glucose (UA) Urine Ketones Urine Blood Urine Nitrate Urine Bilirubin Urine Urobilinogen Ur Leukocyte Esterase Urine RBC Urine WBC Ur Epithelial Cells Amorphous Sediment Urine Bacteria Fine Granular Casts Coarse Granular Casts Urine Other 01/27/18 01/27/18 01/27/18 00:05 03:28 03:28 WBC 12.6 H D RBC 4.54 Hgb 13.9 Hct 42.7 MCV 94.1 MCH 30.6 MCHC 32.6 RDW 14.8 H Plt Count 176 MPV 11.6 H Gran % 88.8 H Lymph % (Auto) 5.8 L [place] % (Auto) 5.3 Eos % (Auto) 0.0 L Baso % (Auto) 0.1 Gran # 11.23 H Lymph # (Auto) 0.7 L [place] # (Auto) 0.7 H Eos # (Auto) 0.0 Baso # (Auto) 0.01 PT INR APTT pCO2 pO2 28 L HCO3 ABG pH ABG Total CO2 ABG O2 Saturation ABG Base Excess ABG Potassium VBG pH 7.18 L* VBG pCO2 60.0 VBG HCO3 22.4 VBG Total CO2 24.2 VBG O2 Sat (Calc) 50.6 VBG Base Excess -6.8 L VBG Potassium 3.7 Sodium 142.0 Chloride 108.0 H Glucose 180 H Lactate 3.4 H Mechanical Rate FiO2 21.0 Tidal Volume PEEP Potassium Carbon Dioxide Anion Gap BUN Creatinine Est GFR ( Amer) Est GFR (Non-Af Amer) POC Glucose (mg/dL) 161 H Random Glucose Hemoglobin A1c Calcium Phosphorus Magnesium Total Bilirubin AST ALT Alkaline Phosphatase Troponin I Total Protein Albumin Globulin Albumin/Globulin Ratio Procalcitonin Arterial Blood Potassium Venous Blood Potassium 3.7 Urine Color Urine Appearance Urine pH Ur Specific [place] Urine Protein Urine Glucose (UA) Urine Ketones Urine Blood Urine Nitrate Urine Bilirubin Urine Urobilinogen Ur Leukocyte Esterase Urine RBC Urine WBC Ur Epithelial Cells Amorphous Sediment Urine Bacteria Fine Granular Casts Coarse Granular Casts Urine Other 01/27/18 01/27/18 01/27/18 03:28 06:12 07:00 WBC RBC Hgb Hct MCV MCH MCHC RDW Plt Count MPV Gran % Lymph % (Auto) [place] % (Auto) Eos % (Auto) Baso % (Auto) Gran # Lymph # (Auto) [place] # (Auto) Eos # (Auto) Baso # (Auto) PT INR APTT pCO2 pO2 242 H HCO3 ABG pH ABG Total CO2 ABG O2 Saturation ABG Base Excess ABG Potassium VBG pH 7.37 VBG pCO2 32.0 L VBG HCO3 18.5 L VBG Total CO2 19.5 L VBG O2 Sat (Calc) 99.8 H VBG Base Excess -5.8 L VBG Potassium 3.4 L Sodium 145 140.0 Chloride 110 H 112.0 H Glucose 198 H Lactate 1.9 Mechanical Rate FiO2 21.0 Tidal Volume PEEP Potassium 4.1 Carbon Dioxide 23 Anion Gap 16 BUN 31 H Creatinine 0.6 L Est GFR ( Amer) > 60 Est GFR (Non-Af Amer) > 60 POC Glucose (mg/dL) 149 H Random Glucose 168 H Hemoglobin A1c Calcium 7.6 L Phosphorus 4.0 Magnesium 1.6 L Total Bilirubin 0.5 AST 92 H D ALT 49 Alkaline Phosphatase 83 Troponin I Total Protein 5.8 Albumin 3.1 Globulin 2.7 Albumin/Globulin Ratio 1.2 Procalcitonin Arterial Blood Potassium Venous Blood Potassium 3.4 L Urine Color Urine Appearance Urine pH Ur Specific [place] Urine Protein Urine Glucose (UA) Urine Ketones Urine Blood Urine Nitrate Urine Bilirubin Urine Urobilinogen Ur Leukocyte Esterase Urine RBC Urine WBC Ur Epithelial Cells Amorphous Sediment Urine Bacteria Fine Granular Casts Coarse Granular Casts Urine Other 01/27/18 01/27/18 09:00 09:00 WBC 13.3 H RBC 4.13 Hgb 12.4 Hct 38.3 MCV 92.7 MCH 30.0 MCHC 32.4 RDW 14.8 H Plt Count 154 MPV 12.0 H Gran % 88.8 H Lymph % (Auto) 6.4 L [place] % (Auto) 4.7 Eos % (Auto) 0.0 L Baso % (Auto) 0.1 Gran # 11.85 H Lymph # (Auto) 0.9 L [place] # (Auto) 0.6 Eos # (Auto) 0.0 Baso # (Auto) 0.01 PT 15.1 H INR 1.31 APTT 32.9 pCO2 pO2 HCO3 ABG pH ABG Total CO2 ABG O2 Saturation ABG Base Excess ABG Potassium VBG pH VBG pCO2 VBG HCO3 VBG Total CO2 VBG O2 Sat (Calc) VBG Base Excess VBG Potassium Sodium Chloride Glucose Lactate Mechanical Rate FiO2 Tidal Volume PEEP Potassium Carbon Dioxide Anion Gap BUN Creatinine Est GFR ( Amer) Est GFR (Non-Af Amer) POC Glucose (mg/dL) Random Glucose Hemoglobin A1c Calcium Phosphorus Magnesium Total Bilirubin AST ALT Alkaline Phosphatase Troponin I Total Protein Albumin Globulin Albumin/Globulin Ratio Procalcitonin Arterial Blood Potassium Venous Blood Potassium Urine Color Urine Appearance Urine pH Ur Specific [place] Urine Protein Urine Glucose (UA) Urine Ketones Urine Blood Urine Nitrate Urine Bilirubin Urine Urobilinogen Ur Leukocyte Esterase Urine RBC Urine WBC Ur Epithelial Cells Amorphous Sediment Urine Bacteria Fine Granular Casts Coarse Granular Casts Urine Other EKG/Cardiology Studies: Cardiology / EKG Studies 01/26/18 20:23 EKG [ELECTROCARDIOGRAM] Routine Comment: Reason For Exam: hypothermia protocol 01/27/18 04:30 EKG [ELECTROCARDIOGRAM] Routine Comment: Reason For Exam: hypothermia protocol Fingerstick Blood Sugar Results: 149 Assessment/Plan - Assessment and Plan (Free Text) Assessment: This is a 87 year old female with PMH of CHF s/p defibrillator and dementia presenting to the ICU for acute hypoxic respiratory failure s/p cardiac arrest complicated with severe ARDS and concern for aspiration pneumonia. DNR decision to be made today per family. Plan: Neuro: -currently on re-warming protocol this morning -Intubated not on sedation -Neuro check q1 -on keppra for empiric treatment of seizure -CT head showed chronic microvascular ischemic changes -EEG today is pending -Brain nuclear scan showed visualization of the sagittal sinus consistant with intact intracranial flow -Neuro on consult, Dr. Albright Cardio: -s/p cardiopulmonary arrest. -history of systolic CHF with pacemaker/AICD placement -maintain MAP>65 -will monitor vitals including HR and BP closely, vitals q2 -echo showed EF of 39.5%, mild-moderate hypokinesis of inferoseptal wall, moderate AR, mild MR, mild to moderate TR. RVSP of 47 -repeat troponin pending today -Cardio on consult, Dr. Morgan Lungs: -SaO2 >90% -supplementary O2 PRN -CT chest showed extensive consolidation at lung bases R>L, concern for pneumonia -High PEEP/low TV ventilator setting in light of ARDS. PaO2/FiO2 60 on admission , representing severe ARDS -Current Vent settings of TV 340, RR 15, PEEP 5 and FiO2 of 80 -CXR today shows worsening pulmonary edema in the right lung and interval development of of B/L pleural effusions Renal: -maintain euvolemia -avoid nephrotoxic agents, hypochloremia -replace electrolytes as needed -BUN/Cr 31/0.6, will monitor -VBG today reads pH/pCO2/bicarb of 7.37/32/18.5. Improved from yesterday. On admission, anion gap metabolic acidosis secondary to lactic acidosis (4.4) likely from cardiac arrest -I/O: 2.14L/0.67L for positive balance of 1.47L. Will monitor -replaced Mg and calcium today -discontinued bicarp fluids today Heme: -Hg today is 13.6, will monitor -lovenox ppx Endo: -maintain euglycemia -insulin lispro ACHS -finger sticks q6 ID: -WBC is 13.3 today, afebrile -blood culture no growth after 24 hours, sputum culture normal oral hernando, urine culture no growth -on cefipime and doxy -ID on consult, Dr. Valdivia -GI: -NPO, OG tube -GI prophylaxis protonix <Aquiles Swift - Last Filed: 01/27/18 18:18> CCU Objective - Vital Signs / Intake & Output Intake and Output (Last 8hrs): Intake & Output 01/26/18 01/27/18 01/27/18 22:59 06:59 14:59 Intake Total 650 1490 Output Total 370 300 Balance 280 1190 Weight 140 lb Intake: IV 1490 Right Antecubital 690 Right External Jugular 800 Other 650 Output: Urine 370 300 Urethral (Mercado) 370 300 - Medications Active Medications: Active Medications Generic Name Dose Route Start Last Admin Trade Name Freq PRN Reason Stop Dose Admin Enoxaparin Sodium 40 mg 01/27/18 10:00 Lovenox SC DAILY [facility] Protocol Doxycycline Hyclate 100 mg/ 100 mls @ 100 mls/hr 01/26/18 10:00 01/27/18 09: 25 Sodium Chloride IVPB 100 mls/hr Q12 [facility] Administration Protocol Cefepime HCl 1 gm in 100 mls @ 100 mls/hr 01/26/18 14:00 01/27/18 06:08 Maxipime 1gm IVPB 02/04/18 14:01 100 mls/hr Q8 [facility] Administration Protocol Vancomycin HCl 1 gm in 250 mls @ 167 mls/hr 01/27/18 10:00 Vancomycin 1gm IVPB Q12H [facility] Protocol Levetiracetam 1,000 mg/ Sodium 110 mls @ 460 mls/hr 01/27/18 22:00 Chloride IV Q12 [facility] Insulin Human Lispro 0 units 01/27/18 00:00 01/27/18 06:13 Humalog Low SC Not Given Q6H [facility] Protocol Lorazepam 1 mg 01/26/18 06:36 01/27/18 09:29 Ativan IVP 1 mg Q3 PRN Administration Seizure activity Protocol Pantoprazole Sodium 40 mg 01/26/18 10:00 01/27/18 09:20 Protonix Inj IVP 40 mg DAILY DAVID Administration - Patient Studies Lab Studies: Microbiology Studies 01/26/18 09:00 Blood Culture - Preliminary Blood NO GROWTH AFTER 24 HOURS 01/26/18 11:11 Urine Culture - Final Urine No Growth (<1,000 CFU/ML) 01/26/18 11:02 Gram Stain - Final Sputum Sputum Culture - Preliminary NORMAL ORAL HERNANDO Lab Studies 01/27/18 01/27/18 01/27/18 Range/Units 11:20 09:30 09:00 WBC (4.5-11.0) 10^3/ul RBC (3.5-6.1) 10^6/uL Hgb (12.0-16.0) g/dL Hct (36.0-48.0) % MCV (80.0-105.0) fl MCH (25.0-35.0) pg MCHC (31.0-37.0) g/dl RDW (11.5-14.5) % Plt Count (120.0-450.0) 10^3/uL MPV (7.0-11.0) fl Gran % (50.0-68.0) % Lymph % (Auto) (22.0-35.0) % [place] % (Auto) (1.0-6.0) % Eos % (Auto) (1.5-5.0) % Baso % (Auto) (0.0-3.0) % Gran # (1.4-6.5) Lymph # (Auto) (1.2-3.4) [place] # (Auto) (0.1-0.6) Eos # (Auto) (0.0-0.7) Baso # (Auto) (0.0-2.0) K/mm3 PT 15.1 H (9.4-12.5) SECONDS INR 1.31 APTT 32.9 (25.1-36.5) Seconds pCO2 30 L (35-45) mm/Hg pO2 115.0 H (80-100) mm/Hg HCO3 19.0 L (21-28) mmol/L ABG pH 7.41 (7.35-7.45) ABG Total CO2 19.9 L (22-28) mmol.L ABG O2 Saturation 99.5 H (95-98) % ABG O2 Content 15.4 (15-23) ML/dl ABG Base Excess -4.7 L (-2.0-3.0) mmol/L ABG Hemoglobin 11.2 L (11.7-17.4) g/dL ABG Carboxyhemoglobin 1.5 (0.5-1.5) % POC ABG HHb (Measured) 0.5 (0-5) % ABG Methemoglobin 1.3 (0.0-3.0) % ABG O2 Capacity 15.5 L (16-24) mL/dl ABG Potassium (3.6-5.2) mmol/L VBG pH (7.32-7.43) VBG pCO2 (40-60) VBG HCO3 (21-28) mmol/l VBG Total CO2 (22-28) mmol.L VBG O2 Sat (Calc) (40-65) % VBG Base Excess (0.0-2.0) mmol/L VBG Potassium (3.6-5.2) mmol/L Hgb O2 Saturation 96.8 (95.0-98.0) % Sodium (132-148) mmol/L Chloride (98-107) mmol/L Glucose (65-105) mg/dl Lactate (0.7-2.1) mmol/L Mechanical Rate FiO2 80.0 % Tidal Volume PEEP Potassium (3.6-5.0) mmol/L Carbon Dioxide (21-33) mmol/L Anion Gap (10-20) BUN (7-21) mg/dL Creatinine (0.7-1.2) mg/dl Est GFR ( Amer) Est GFR (Non-Af Amer) POC Glucose (mg/dL) (65-110) mg/dL Random Glucose (70-110) mg/dL Calcium (8.4-10.5) mg/dL Phosphorus (2.5-4.5) mg/dL Magnesium (1.7-2.2) mg/dL Total Bilirubin (0.2-1.3) mg/dL AST (14-36) U/L ALT (7-56) U/L Alkaline Phosphatase (38-126) U/L Troponin I 1.26 H* D ng/mL Total Protein (5.8-8.3) g/dL Albumin (3.0-4.8) g/dL Globulin gm/dL Albumin/Globulin Ratio (1.1-1.8) Procalcitonin (0.19-0.49) NG/ML Arterial Blood Potassium (3.6-5.2) mmol/L Venous Blood Potassium (3.6-5.2) mmol/L 01/27/18 01/27/18 01/27/18 Range/Units 09:00 07:00 06:12 WBC 13.3 H (4.5-11.0) 10^3/ul RBC 4.13 (3.5-6.1) 10^6/uL Hgb 12.4 (12.0-16.0) g/dL Hct 38.3 (36.0-48.0) % MCV 92.7 (80.0-105.0) fl MCH 30.0 (25.0-35.0) pg MCHC 32.4 (31.0-37.0) g/dl RDW 14.8 H (11.5-14.5) % Plt Count 154 (120.0-450.0) 10^3/uL MPV 12.0 H (7.0-11.0) fl Gran % 88.8 H (50.0-68.0) % Lymph % (Auto) 6.4 L (22.0-35.0) % [place] % (Auto) 4.7 (1.0-6.0) % Eos % (Auto) 0.0 L (1.5-5.0) % Baso % (Auto) 0.1 (0.0-3.0) % Gran # 11.85 H (1.4-6.5) Lymph # (Auto) 0.9 L (1.2-3.4) [place] # (Auto) 0.6 (0.1-0.6) Eos # (Auto) 0.0 (0.0-0.7) Baso # (Auto) 0.01 (0.0-2.0) K/mm3 PT (9.4-12.5) SECONDS INR APTT (25.1-36.5) Seconds pCO2 (35-45) mm/Hg pO2 242 H (80-100) mm/Hg HCO3 (21-28) mmol/L ABG pH (7.35-7.45) ABG Total CO2 (22-28) mmol.L ABG O2 Saturation (95-98) % ABG O2 Content (15-23) ML/dl ABG Base Excess (-2.0-3.0) mmol/L ABG Hemoglobin (11.7-17.4) g/dL ABG Carboxyhemoglobin (0.5-1.5) % POC ABG HHb (Measured) (0-5) % ABG Methemoglobin (0.0-3.0) % ABG O2 Capacity (16-24) mL/dl ABG Potassium (3.6-5.2) mmol/L VBG pH 7.37 (7.32-7.43) VBG pCO2 32.0 L (40-60) VBG HCO3 18.5 L (21-28) mmol/l VBG Total CO2 19.5 L (22-28) mmol.L VBG O2 Sat (Calc) 99.8 H (40-65) % VBG Base Excess -5.8 L (0.0-2.0) mmol/L VBG Potassium 3.4 L (3.6-5.2) mmol/L Hgb O2 Saturation (95.0-98.0) % Sodium 140.0 (132-148) mmol/L Chloride 112.0 H (98-107) mmol/L Glucose 198 H (65-105) mg/dl Lactate 1.9 (0.7-2.1) mmol/L Mechanical Rate FiO2 21.0 % Tidal Volume PEEP Potassium (3.6-5.0) mmol/L Carbon Dioxide (21-33) mmol/L Anion Gap (10-20) BUN (7-21) mg/dL Creatinine (0.7-1.2) mg/dl Est GFR ( Amer) Est GFR (Non-Af Amer) POC Glucose (mg/dL) 149 H (65-110) mg/dL Random Glucose (70-110) mg/dL Calcium (8.4-10.5) mg/dL Phosphorus (2.5-4.5) mg/dL Magnesium (1.7-2.2) mg/dL Total Bilirubin (0.2-1.3) mg/dL AST (14-36) U/L ALT (7-56) U/L Alkaline Phosphatase (38-126) U/L Troponin I ng/mL Total Protein (5.8-8.3) g/dL Albumin (3.0-4.8) g/dL Globulin gm/dL Albumin/Globulin Ratio (1.1-1.8) Procalcitonin (0.19-0.49) NG/ML Arterial Blood Potassium (3.6-5.2) mmol/L Venous Blood Potassium 3.4 L (3.6-5.2) mmol/L 01/27/18 01/27/18 01/27/18 Range/Units 03:28 03:28 03:28 WBC 12.6 H D (4.5-11.0) 10^3/ul RBC 4.54 (3.5-6.1) 10^6/uL Hgb 13.9 (12.0-16.0) g/dL Hct 42.7 (36.0-48.0) % MCV 94.1 (80.0-105.0) fl MCH 30.6 (25.0-35.0) pg MCHC 32.6 (31.0-37.0) g/dl RDW 14.8 H (11.5-14.5) % Plt Count 176 (120.0-450.0) 10^3/uL MPV 11.6 H (7.0-11.0) fl Gran % 88.8 H (50.0-68.0) % Lymph % (Auto) 5.8 L (22.0-35.0) % [place] % (Auto) 5.3 (1.0-6.0) % Eos % (Auto) 0.0 L (1.5-5.0) % Baso % (Auto) 0.1 (0.0-3.0) % Gran # 11.23 H (1.4-6.5) Lymph # (Auto) 0.7 L (1.2-3.4) [place] # (Auto) 0.7 H (0.1-0.6) Eos # (Auto) 0.0 (0.0-0.7) Baso # (Auto) 0.01 (0.0-2.0) K/mm3 PT (9.4-12.5) SECONDS INR APTT (25.1-36.5) Seconds pCO2 (35-45) mm/Hg pO2 28 L (80-100) mm/Hg HCO3 (21-28) mmol/L ABG pH (7.35-7.45) ABG Total CO2 (22-28) mmol.L ABG O2 Saturation (95-98) % ABG O2 Content (15-23) ML/dl ABG Base Excess (-2.0-3.0) mmol/L ABG Hemoglobin (11.7-17.4) g/dL ABG Carboxyhemoglobin (0.5-1.5) % POC ABG HHb (Measured) (0-5) % ABG Methemoglobin (0.0-3.0) % ABG O2 Capacity (16-24) mL/dl ABG Potassium (3.6-5.2) mmol/L VBG pH 7.18 L* (7.32-7.43) VBG pCO2 60.0 (40-60) VBG HCO3 22.4 (21-28) mmol/l VBG Total CO2 24.2 (22-28) mmol.L VBG O2 Sat (Calc) 50.6 (40-65) % VBG Base Excess -6.8 L (0.0-2.0) mmol/L VBG Potassium 3.7 (3.6-5.2) mmol/L Hgb O2 Saturation (95.0-98.0) % Sodium 145 142.0 (132-148) mmol/L Chloride 110 H 108.0 H (98-107) mmol/L Glucose 180 H (65-105) mg/dl Lactate 3.4 H (0.7-2.1) mmol/L Mechanical Rate FiO2 21.0 % Tidal Volume PEEP Potassium 4.1 (3.6-5.0) mmol/L Carbon Dioxide 23 (21-33) mmol/L Anion Gap 16 (10-20) BUN 31 H (7-21) mg/dL Creatinine 0.6 L (0.7-1.2) mg/dl Est GFR ( Amer) > 60 Est GFR (Non-Af Amer) > 60 POC Glucose (mg/dL) (65-110) mg/dL Random Glucose 168 H (70-110) mg/dL Calcium 7.6 L (8.4-10.5) mg/dL Phosphorus 4.0 (2.5-4.5) mg/dL Magnesium 1.6 L (1.7-2.2) mg/dL Total Bilirubin 0.5 (0.2-1.3) mg/dL AST 92 H D (14-36) U/L ALT 49 (7-56) U/L Alkaline Phosphatase 83 (38-126) U/L Troponin I ng/mL Total Protein 5.8 (5.8-8.3) g/dL Albumin 3.1 (3.0-4.8) g/dL Globulin 2.7 gm/dL Albumin/Globulin Ratio 1.2 (1.1-1.8) Procalcitonin (0.19-0.49) NG/ML Arterial Blood Potassium (3.6-5.2) mmol/L Venous Blood Potassium 3.7 (3.6-5.2) mmol/L 01/27/18 01/26/18 01/26/18 Range/Units 00:05 21:04 21:04 WBC (4.5-11.0) 10^3/ul RBC (3.5-6.1) 10^6/uL Hgb (12.0-16.0) g/dL Hct (36.0-48.0) % MCV (80.0-105.0) fl MCH (25.0-35.0) pg MCHC (31.0-37.0) g/dl RDW (11.5-14.5) % Plt Count (120.0-450.0) 10^3/uL MPV (7.0-11.0) fl Gran % (50.0-68.0) % Lymph % (Auto) (22.0-35.0) % [place] % (Auto) (1.0-6.0) % Eos % (Auto) (1.5-5.0) % Baso % (Auto) (0.0-3.0) % Gran # (1.4-6.5) Lymph # (Auto) (1.2-3.4) [place] # (Auto) (0.1-0.6) Eos # (Auto) (0.0-0.7) Baso # (Auto) (0.0-2.0) K/mm3 PT (9.4-12.5) SECONDS INR APTT (25.1-36.5) Seconds pCO2 (35-45) mm/Hg pO2 38 (80-100) mm/Hg HCO3 (21-28) mmol/L ABG pH (7.35-7.45) ABG Total CO2 (22-28) mmol.L ABG O2 Saturation (95-98) % ABG O2 Content (15-23) ML/dl ABG Base Excess (-2.0-3.0) mmol/L ABG Hemoglobin (11.7-17.4) g/dL ABG Carboxyhemoglobin (0.5-1.5) % POC ABG HHb (Measured) (0-5) % ABG Methemoglobin (0.0-3.0) % ABG O2 Capacity (16-24) mL/dl ABG Potassium (3.6-5.2) mmol/L VBG pH 7.23 L (7.32-7.43) VBG pCO2 55.0 (40-60) VBG HCO3 23.0 (21-28) mmol/l VBG Total CO2 24.7 (22-28) mmol.L VBG O2 Sat (Calc) 61.4 (40-65) % VBG Base Excess -5.2 L (0.0-2.0) mmol/L VBG Potassium 3.8 (3.6-5.2) mmol/L Hgb O2 Saturation (95.0-98.0) % Sodium 145 145.0 (132-148) mmol/L Chloride 114 H 112.0 H (98-107) mmol/L Glucose 167 H (65-105) mg/dl Lactate 4.0 H* (0.7-2.1) mmol/L Mechanical Rate FiO2 21.0 % Tidal Volume PEEP Potassium 4.1 (3.6-5.0) mmol/L Carbon Dioxide 21 (21-33) mmol/L Anion Gap 14 (10-20) BUN 30 H (7-21) mg/dL Creatinine 0.7 (0.7-1.2) mg/dl Est GFR ( Amer) > 60 Est GFR (Non-Af Amer) > 60 POC Glucose (mg/dL) 161 H (65-110) mg/dL Random Glucose 153 H (70-110) mg/dL Calcium 7.4 L (8.4-10.5) mg/dL Phosphorus 4.0 (2.5-4.5) mg/dL Magnesium 1.8 (1.7-2.2) mg/dL Total Bilirubin 0.5 (0.2-1.3) mg/dL AST 76 H D (14-36) U/L ALT 56 (7-56) U/L Alkaline Phosphatase 76 (38-126) U/L Troponin I ng/mL Total Protein 5.3 L (5.8-8.3) g/dL Albumin 2.8 L (3.0-4.8) g/dL Globulin 2.5 gm/dL Albumin/Globulin Ratio 1.1 (1.1-1.8) Procalcitonin (0.19-0.49) NG/ML Arterial Blood Potassium (3.6-5.2) mmol/L Venous Blood Potassium 3.8 (3.6-5.2) mmol/L 01/26/18 01/26/18 01/26/18 Range/Units 21:04 21:04 20:14 WBC 9.9 D (4.5-11.0) 10^3/ul RBC 4.22 (3.5-6.1) 10^6/uL Hgb 12.9 (12.0-16.0) g/dL Hct 40.3 (36.0-48.0) % MCV 95.5 D (80.0-105.0) fl MCH 30.6 (25.0-35.0) pg MCHC 32.0 (31.0-37.0) g/dl RDW 14.7 H (11.5-14.5) % Plt Count 153 (120.0-450.0) 10^3/uL MPV 11.8 H (7.0-11.0) fl Gran % 87.3 H (50.0-68.0) % Lymph % (Auto) 6.9 L (22.0-35.0) % [place] % (Auto) 5.7 (1.0-6.0) % Eos % (Auto) 0.0 L (1.5-5.0) % Baso % (Auto) 0.1 (0.0-3.0) % Gran # 8.60 H (1.4-6.5) Lymph # (Auto) 0.7 L (1.2-3.4) [place] # (Auto) 0.6 (0.1-0.6) Eos # (Auto) 0.0 (0.0-0.7) Baso # (Auto) 0.01 (0.0-2.0) K/mm3 PT 12.6 H (9.4-12.5) SECONDS INR 1.10 APTT 28.9 (25.1-36.5) Seconds pCO2 (35-45) mm/Hg pO2 (80-100) mm/Hg HCO3 (21-28) mmol/L ABG pH (7.35-7.45) ABG Total CO2 (22-28) mmol.L ABG O2 Saturation (95-98) % ABG O2 Content (15-23) ML/dl ABG Base Excess (-2.0-3.0) mmol/L ABG Hemoglobin (11.7-17.4) g/dL ABG Carboxyhemoglobin (0.5-1.5) % POC ABG HHb (Measured) (0-5) % ABG Methemoglobin (0.0-3.0) % ABG O2 Capacity (16-24) mL/dl ABG Potassium (3.6-5.2) mmol/L VBG pH (7.32-7.43) VBG pCO2 (40-60) VBG HCO3 (21-28) mmol/l VBG Total CO2 (22-28) mmol.L VBG O2 Sat (Calc) (40-65) % VBG Base Excess (0.0-2.0) mmol/L VBG Potassium (3.6-5.2) mmol/L Hgb O2 Saturation (95.0-98.0) % Sodium (132-148) mmol/L Chloride (98-107) mmol/L Glucose (65-105) mg/dl Lactate (0.7-2.1) mmol/L Mechanical Rate FiO2 % Tidal Volume PEEP Potassium (3.6-5.0) mmol/L Carbon Dioxide (21-33) mmol/L Anion Gap (10-20) BUN (7-21) mg/dL Creatinine (0.7-1.2) mg/dl Est GFR ( Amer) Est GFR (Non-Af Amer) POC Glucose (mg/dL) 153 H (65-110) mg/dL Random Glucose (70-110) mg/dL Calcium (8.4-10.5) mg/dL Phosphorus (2.5-4.5) mg/dL Magnesium (1.7-2.2) mg/dL Total Bilirubin (0.2-1.3) mg/dL AST (14-36) U/L ALT (7-56) U/L Alkaline Phosphatase (38-126) U/L Troponin I ng/mL Total Protein (5.8-8.3) g/dL Albumin (3.0-4.8) g/dL Globulin gm/dL Albumin/Globulin Ratio (1.1-1.8) Procalcitonin (0.19-0.49) NG/ML Arterial Blood Potassium (3.6-5.2) mmol/L Venous Blood Potassium (3.6-5.2) mmol/L 08/01/26/18 01/26/18 Range/Units 16:50 15:15 12:26 WBC (4.5-11.0) 10^3/ul RBC (3.5-6.1) 10^6/uL Hgb (12.0-16.0) g/dL Hct (36.0-48.0) % MCV (80.0-105.0) fl MCH (25.0-35.0) pg MCHC (31.0-37.0) g/dl RDW (11.5-14.5) % Plt Count (120.0-450.0) 10^3/uL MPV (7.0-11.0) fl Gran % (50.0-68.0) % Lymph % (Auto) (22.0-35.0) % [place] % (Auto) (1.0-6.0) % Eos % (Auto) (1.5-5.0) % Baso % (Auto) (0.0-3.0) % Gran # (1.4-6.5) Lymph # (Auto) (1.2-3.4) [place] # (Auto) (0.1-0.6) Eos # (Auto) (0.0-0.7) Baso # (Auto) (0.0-2.0) K/mm3 PT (9.4-12.5) SECONDS INR APTT (25.1-36.5) Seconds pCO2 47 H (35-45) mm/Hg pO2 121.0 H (80-100) mm/Hg HCO3 19.2 L (21-28) mmol/L ABG pH 7.22 L (7.35-7.45) ABG Total CO2 20.6 L (22-28) mmol.L ABG O2 Saturation 99.8 H (95-98) % ABG O2 Content (15-23) ML/dl ABG Base Excess -8.5 L (-2.0-3.0) mmol/L ABG Hemoglobin (11.7-17.4) g/dL ABG Carboxyhemoglobin (0.5-1.5) % POC ABG HHb (Measured) (0-5) % ABG Methemoglobin (0.0-3.0) % ABG O2 Capacity (16-24) mL/dl ABG Potassium 3.7 (3.6-5.2) mmol/L VBG pH (7.32-7.43) VBG pCO2 (40-60) VBG HCO3 (21-28) mmol/l VBG Total CO2 (22-28) mmol.L VBG O2 Sat (Calc) (40-65) % VBG Base Excess (0.0-2.0) mmol/L VBG Potassium (3.6-5.2) mmol/L Hgb O2 Saturation (95.0-98.0) % Sodium 142.0 (132-148) mmol/L Chloride 116.0 H (98-107) mmol/L Glucose 191 H (65-105) mg/dl Lactate 1.6 (0.7-2.1) mmol/L Mechanical Rate 15 FiO2 100.0 % Tidal Volume 400 PEEP 5 Potassium (3.6-5.0) mmol/L Carbon Dioxide (21-33) mmol/L Anion Gap (10-20) BUN (7-21) mg/dL Creatinine (0.7-1.2) mg/dl Est GFR ( Amer) Est GFR (Non-Af Amer) POC Glucose (mg/dL) 181 H (65-110) mg/dL Random Glucose (70-110) mg/dL Calcium (8.4-10.5) mg/dL Phosphorus (2.5-4.5) mg/dL Magnesium (1.7-2.2) mg/dL Total Bilirubin (0.2-1.3) mg/dL AST (14-36) U/L ALT (7-56) U/L Alkaline Phosphatase (38-126) U/L Troponin I 1.86 H* D ng/mL Total Protein (5.8-8.3) g/dL Albumin (3.0-4.8) g/dL Globulin gm/dL Albumin/Globulin Ratio (1.1-1.8) Procalcitonin (0.19-0.49) NG/ML Arterial Blood Potassium 3.7 (3.6-5.2) mmol/L Venous Blood Potassium (3.6-5.2) mmol/L 01/26/18 Range/Units 09:02 WBC (4.5-11.0) 10^3/ul RBC (3.5-6.1) 10^6/uL Hgb (12.0-16.0) g/dL Hct (36.0-48.0) % MCV (80.0-105.0) fl MCH (25.0-35.0) pg MCHC (31.0-37.0) g/dl RDW (11.5-14.5) % Plt Count (120.0-450.0) 10^3/uL MPV (7.0-11.0) fl Gran % (50.0-68.0) % Lymph % (Auto) (22.0-35.0) % [place] % (Auto) (1.0-6.0) % Eos % (Auto) (1.5-5.0) % Baso % (Auto) (0.0-3.0) % Gran # (1.4-6.5) Lymph # (Auto) (1.2-3.4) [place] # (Auto) (0.1-0.6) Eos # (Auto) (0.0-0.7) Baso # (Auto) (0.0-2.0) K/mm3 PT (9.4-12.5) SECONDS INR APTT (25.1-36.5) Seconds pCO2 (35-45) mm/Hg pO2 (80-100) mm/Hg HCO3 (21-28) mmol/L ABG pH (7.35-7.45) ABG Total CO2 (22-28) mmol.L ABG O2 Saturation (95-98) % ABG O2 Content (15-23) ML/dl ABG Base Excess (-2.0-3.0) mmol/L ABG Hemoglobin (11.7-17.4) g/dL ABG Carboxyhemoglobin (0.5-1.5) % POC ABG HHb (Measured) (0-5) % ABG Methemoglobin (0.0-3.0) % ABG O2 Capacity (16-24) mL/dl ABG Potassium (3.6-5.2) mmol/L VBG pH (7.32-7.43) VBG pCO2 (40-60) VBG HCO3 (21-28) mmol/l VBG Total CO2 (22-28) mmol.L VBG O2 Sat (Calc) (40-65) % VBG Base Excess (0.0-2.0) mmol/L VBG Potassium (3.6-5.2) mmol/L Hgb O2 Saturation (95.0-98.0) % Sodium (132-148) mmol/L Chloride (98-107) mmol/L Glucose (65-105) mg/dl Lactate (0.7-2.1) mmol/L Mechanical Rate FiO2 % Tidal Volume PEEP Potassium (3.6-5.0) mmol/L Carbon Dioxide (21-33) mmol/L Anion Gap (10-20) BUN (7-21) mg/dL Creatinine (0.7-1.2) mg/dl Est GFR ( Amer) Est GFR (Non-Af Amer) POC Glucose (mg/dL) (65-110) mg/dL Random Glucose (70-110) mg/dL Calcium (8.4-10.5) mg/dL Phosphorus (2.5-4.5) mg/dL Magnesium (1.7-2.2) mg/dL Total Bilirubin (0.2-1.3) mg/dL AST (14-36) U/L ALT (7-56) U/L Alkaline Phosphatase (38-126) U/L Troponin I ng/mL Total Protein (5.8-8.3) g/dL Albumin (3.0-4.8) g/dL Globulin gm/dL Albumin/Globulin Ratio (1.1-1.8) Procalcitonin 3.30 H (0.19-0.49) NG/ML Arterial Blood Potassium (3.6-5.2) mmol/L Venous Blood Potassium (3.6-5.2) mmol/L Laboratory Results - last 24 hr 01/26/18 01/26/18 01/26/18 09:02 12:26 15:15 WBC RBC Hgb Hct MCV MCH MCHC RDW Plt Count MPV Gran % Lymph % (Auto) [place] % (Auto) Eos % (Auto) Baso % (Auto) Gran # Lymph # (Auto) [place] # (Auto) Eos # (Auto) Baso # (Auto) PT INR APTT pCO2 47 H pO2 121.0 H HCO3 19.2 L ABG pH 7.22 L ABG Total CO2 20.6 L ABG O2 Saturation 99.8 H ABG O2 Content ABG Base Excess -8.5 L ABG Hemoglobin ABG Carboxyhemoglobin POC ABG HHb (Measured) ABG Methemoglobin ABG O2 Capacity ABG Potassium 3.7 VBG pH VBG pCO2 VBG HCO3 VBG Total CO2 VBG O2 Sat (Calc) VBG Base Excess VBG Potassium Hgb O2 Saturation Sodium 142.0 Chloride 116.0 H Glucose 191 H Lactate 1.6 Mechanical Rate 15 FiO2 100.0 Tidal Volume 400 PEEP 5 Potassium Carbon Dioxide Anion Gap BUN Creatinine Est GFR ( Amer) Est GFR (Non-Af Amer) POC Glucose (mg/dL) Random Glucose Calcium Phosphorus Magnesium Total Bilirubin AST ALT Alkaline Phosphatase Troponin I 1.86 H* D Total Protein Albumin Globulin Albumin/Globulin Ratio Procalcitonin 3.30 H Arterial Blood Potassium 3.7 Venous Blood Potassium 01/26/18 01/26/18 01/26/18 16:50 20:14 21:04 WBC 9.9 D RBC 4.22 Hgb 12.9 Hct 40.3 MCV 95.5 D MCH 30.6 MCHC 32.0 RDW 14.7 H Plt Count 153 MPV 11.8 H Gran % 87.3 H Lymph % (Auto) 6.9 L [place] % (Auto) 5.7 Eos % (Auto) 0.0 L Baso % (Auto) 0.1 Gran # 8.60 H Lymph # (Auto) 0.7 L [place] # (Auto) 0.6 Eos # (Auto) 0.0 Baso # (Auto) 0.01 PT INR APTT pCO2 pO2 HCO3 ABG pH ABG Total CO2 ABG O2 Saturation ABG O2 Content ABG Base Excess ABG Hemoglobin ABG Carboxyhemoglobin POC ABG HHb (Measured) ABG Methemoglobin ABG O2 Capacity ABG Potassium VBG pH VBG pCO2 VBG HCO3 VBG Total CO2 VBG O2 Sat (Calc) VBG Base Excess VBG Potassium Hgb O2 Saturation Sodium Chloride Glucose Lactate Mechanical Rate FiO2 Tidal Volume PEEP Potassium Carbon Dioxide Anion Gap BUN Creatinine Est GFR ( Amer) Est GFR (Non-Af Amer) POC Glucose (mg/dL) 181 H 153 H Random Glucose Calcium Phosphorus Magnesium Total Bilirubin AST ALT Alkaline Phosphatase Troponin I Total Protein Albumin Globulin Albumin/Globulin Ratio Procalcitonin Arterial Blood Potassium Venous Blood Potassium 01/26/18 01/26/18 01/26/18 21:04 21:04 21:04 WBC RBC Hgb Hct MCV MCH MCHC RDW Plt Count MPV Gran % Lymph % (Auto) [place] % (Auto) Eos % (Auto) Baso % (Auto) Gran # Lymph # (Auto) [place] # (Auto) Eos # (Auto) Baso # (Auto) PT 12.6 H INR 1.10 APTT 28.9 pCO2 pO2 38 HCO3 ABG pH ABG Total CO2 ABG O2 Saturation ABG O2 Content ABG Base Excess ABG Hemoglobin ABG Carboxyhemoglobin POC ABG HHb (Measured) ABG Methemoglobin ABG O2 Capacity ABG Potassium VBG pH 7.23 L VBG pCO2 55.0 VBG HCO3 23.0 VBG Total CO2 24.7 VBG O2 Sat (Calc) 61.4 VBG Base Excess -5.2 L VBG Potassium 3.8 Hgb O2 Saturation Sodium 145.0 145 Chloride 112.0 H 114 H Glucose 167 H Lactate 4.0 H* Mechanical Rate FiO2 21.0 Tidal Volume PEEP Potassium 4.1 Carbon Dioxide 21 Anion Gap 14 BUN 30 H Creatinine 0.7 Est GFR ( Amer) > 60 Est GFR (Non-Af Amer) > 60 POC Glucose (mg/dL) Random Glucose 153 H Calcium 7.4 L Phosphorus 4.0 Magnesium 1.8 Total Bilirubin 0.5 AST 76 H D ALT 56 Alkaline Phosphatase 76 Troponin I Total Protein 5.3 L Albumin 2.8 L Globulin 2.5 Albumin/Globulin Ratio 1.1 Procalcitonin Arterial Blood Potassium Venous Blood Potassium 3.8 01/27/18 01/27/18 01/27/18 00:05 03:28 03:28 WBC 12.6 H D RBC 4.54 Hgb 13.9 Hct 42.7 MCV 94.1 MCH 30.6 MCHC 32.6 RDW 14.8 H Plt Count 176 MPV 11.6 H Gran % 88.8 H Lymph % (Auto) 5.8 L [place] % (Auto) 5.3 Eos % (Auto) 0.0 L Baso % (Auto) 0.1 Gran # 11.23 H Lymph # (Auto) 0.7 L [place] # (Auto) 0.7 H Eos # (Auto) 0.0 Baso # (Auto) 0.01 PT INR APTT pCO2 pO2 28 L HCO3 ABG pH ABG Total CO2 ABG O2 Saturation ABG O2 Content ABG Base Excess ABG Hemoglobin ABG Carboxyhemoglobin POC ABG HHb (Measured) ABG Methemoglobin ABG O2 Capacity ABG Potassium VBG pH 7.18 L* VBG pCO2 60.0 VBG HCO3 22.4 VBG Total CO2 24.2 VBG O2 Sat (Calc) 50.6 VBG Base Excess -6.8 L VBG Potassium 3.7 Hgb O2 Saturation Sodium 142.0 Chloride 108.0 H Glucose 180 H Lactate 3.4 H Mechanical Rate FiO2 21.0 Tidal Volume PEEP Potassium Carbon Dioxide Anion Gap BUN Creatinine Est GFR ( Amer) Est GFR (Non-Af Amer) POC Glucose (mg/dL) 161 H Random Glucose Calcium Phosphorus Magnesium Total Bilirubin AST ALT Alkaline Phosphatase Troponin I Total Protein Albumin Globulin Albumin/Globulin Ratio Procalcitonin Arterial Blood Potassium Venous Blood Potassium 3.7 01/27/18 01/27/18 01/27/18 03:28 06:12 07:00 WBC RBC Hgb Hct MCV MCH MCHC RDW Plt Count MPV Gran % Lymph % (Auto) [place] % (Auto) Eos % (Auto) Baso % (Auto) Gran # Lymph # (Auto) [place] # (Auto) Eos # (Auto) Baso # (Auto) PT INR APTT pCO2 pO2 242 H HCO3 ABG pH ABG Total CO2 ABG O2 Saturation ABG O2 Content ABG Base Excess ABG Hemoglobin ABG Carboxyhemoglobin POC ABG HHb (Measured) ABG Methemoglobin ABG O2 Capacity ABG Potassium VBG pH 7.37 VBG pCO2 32.0 L VBG HCO3 18.5 L VBG Total CO2 19.5 L VBG O2 Sat (Calc) 99.8 H VBG Base Excess -5.8 L VBG Potassium 3.4 L Hgb O2 Saturation Sodium 145 140.0 Chloride 110 H 112.0 H Glucose 198 H Lactate 1.9 Mechanical Rate FiO2 21.0 Tidal Volume PEEP Potassium 4.1 Carbon Dioxide 23 Anion Gap 16 BUN 31 H Creatinine 0.6 L Est GFR ( Amer) > 60 Est GFR (Non-Af Amer) > 60 POC Glucose (mg/dL) 149 H Random Glucose 168 H Calcium 7.6 L Phosphorus 4.0 Magnesium 1.6 L Total Bilirubin 0.5 AST 92 H D ALT 49 Alkaline Phosphatase 83 Troponin I Total Protein 5.8 Albumin 3.1 Globulin 2.7 Albumin/Globulin Ratio 1.2 Procalcitonin Arterial Blood Potassium Venous Blood Potassium 3.4 L 01/27/18 01/27/18 01/27/18 09:00 09:00 09:30 WBC 13.3 H RBC 4.13 Hgb 12.4 Hct 38.3 MCV 92.7 MCH 30.0 MCHC 32.4 RDW 14.8 H Plt Count 154 MPV 12.0 H Gran % 88.8 H Lymph % (Auto) 6.4 L [place] % (Auto) 4.7 Eos % (Auto) 0.0 L Baso % (Auto) 0.1 Gran # 11.85 H Lymph # (Auto) 0.9 L [place] # (Auto) 0.6 Eos # (Auto) 0.0 Baso # (Auto) 0.01 PT 15.1 H INR 1.31 APTT 32.9 pCO2 pO2 HCO3 ABG pH ABG Total CO2 ABG O2 Saturation ABG O2 Content ABG Base Excess ABG Hemoglobin ABG Carboxyhemoglobin POC ABG HHb (Measured) ABG Methemoglobin ABG O2 Capacity ABG Potassium VBG pH VBG pCO2 VBG HCO3 VBG Total CO2 VBG O2 Sat (Calc) VBG Base Excess VBG Potassium Hgb O2 Saturation Sodium Chloride Glucose Lactate Mechanical Rate FiO2 Tidal Volume PEEP Potassium Carbon Dioxide Anion Gap BUN Creatinine Est GFR ( Amer) Est GFR (Non-Af Amer) POC Glucose (mg/dL) Random Glucose Calcium Phosphorus Magnesium Total Bilirubin AST ALT Alkaline Phosphatase Troponin I 1.26 H* D Total Protein Albumin Globulin Albumin/Globulin Ratio Procalcitonin Arterial Blood Potassium Venous Blood Potassium 01/27/18 11:20 WBC RBC Hgb Hct MCV MCH MCHC RDW Plt Count MPV Gran % Lymph % (Auto) [place] % (Auto) Eos % (Auto) Baso % (Auto) Gran # Lymph # (Auto) [place] # (Auto) Eos # (Auto) Baso # (Auto) PT INR APTT pCO2 30 L pO2 115.0 H HCO3 19.0 L ABG pH 7.41 ABG Total CO2 19.9 L ABG O2 Saturation 99.5 H ABG O2 Content 15.4 ABG Base Excess -4.7 L ABG Hemoglobin 11.2 L ABG Carboxyhemoglobin 1.5 POC ABG HHb (Measured) 0.5 ABG Methemoglobin 1.3 ABG O2 Capacity 15.5 L ABG Potassium VBG pH VBG pCO2 VBG HCO3 VBG Total CO2 VBG O2 Sat (Calc) VBG Base Excess VBG Potassium Hgb O2 Saturation 96.8 Sodium Chloride Glucose Lactate Mechanical Rate FiO2 80.0 Tidal Volume PEEP Potassium Carbon Dioxide Anion Gap BUN Creatinine Est GFR ( Amer) Est GFR (Non-Af Amer) POC Glucose (mg/dL) Random Glucose Calcium Phosphorus Magnesium Total Bilirubin AST ALT Alkaline Phosphatase Troponin I Total Protein Albumin Globulin Albumin/Globulin Ratio Procalcitonin Arterial Blood Potassium Venous Blood Potassium EKG/Cardiology Studies: Cardiology / EKG Studies 01/26/18 20:23 EKG [ELECTROCARDIOGRAM] Routine Comment: Reason For Exam: hypothermia protocol 01/27/18 04:30 EKG [ELECTROCARDIOGRAM] Routine Comment: Reason For Exam: hypothermia protocol Attending/Attestation - Attestation I have personally seen and examined this patient.: Yes I have fully participated in the care of the patient.: Yes I have reviewed all pertinent clinical information: Yes Notes (Text): 01/27/18 12:07 The patient was seen and examined at the bedside. Patient care was discussed with resident Medical records, lab studies, and imaging were reviewed and management issues were discussed and formulated. 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; f\u serial CE and ECG; Echo shows EF 30-35% -mechanical ventilation to maintain Spo2>90 Pao2>60; current mode PRVC -monitor for TV 6ml\kg IBW and plateau pressure <30 -ABG reviewed and CXR reviewed; vent setting adjusted; Fio2 decreased, repeat Abg 7.41\30\115 -Continue broad spectrum Abx as per ID team and f\u cultures -f\u Bun\Cr and U\o; d\c bicarb drip -continue antiseizure meds (Keppra) and f\u EEG results; seizure precautions and Ativan PRN -neurology f\u appreciated; CT head repeat today; encephalopathy 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 Pt 's prognosis, diagnosis, studies were discussed. Pt's family verbalized understanding of her condition, but had reservations about pt's treatment in the emergency room. Pt's family also requested DNR code status and requested palliation team 01/27/18 16:36
--- NOTE | 2018-01-27 11:16 | CT ---
Date of service: 01/27/2018 PROCEDURE: CT HEAD WITHOUT CONTRAST. HISTORY: f/u, s/p cardiac arrest COMPARISON: 01/26/2018 TECHNIQUE: Axial computed tomography images were obtained through the head/brain without intravenous contrast. Radiation dose: Total exam DLP = 733 mGy-cm. This CT exam was performed using one or more of the following dose reduction techniques: Automated exposure control, adjustment of the mA and/or kV according to patient size, and/or use of iterative reconstruction technique. FINDINGS: HEMORRHAGE: No intracranial hemorrhage. BRAIN: No mass effect or edema. No atrophy or chronic microvascular ischemic changes. VENTRICLES: Unremarkable. No hydrocephalus. CALVARIUM: Unremarkable. PARANASAL SINUSES: Unremarkable as visualized. No significant inflammatory changes. MASTOID AIR CELLS: Unremarkable as visualized. No inflammatory changes. OTHER FINDINGS: None. IMPRESSION: No acute findings
[2018-01-27 11:24] LABS: ARTERIAL BLOOD GAS HEMOGLOBIN 11.2 g/dL (11.7-17.4); ARTERIAL BLOOD GAS O2 CAPACITY 15.5 mL/dl (16-24); ARTERIAL BLOOD GAS O2 CONTENT 15.4 ML/dl (15-23); ARTERIAL BLOOD GAS O2 SAT 99.5 % (95-98); ARTERIAL BLOOD GAS PCO2 30 mm/Hg (35-45); ARTERIAL BLOOD GAS PH 7.41 (7.35-7.45); ARTERIAL BLOOD GAS TCO2 19.9 mmol.L (22-28)
[2018-01-27 12:48] VITALS: RESP 41
--- NOTE | 2018-01-27 13:03 | CP.PCM.PN ---
Subjective - Date & Time of Evaluation Date of Evaluation: 01/27/18 Time of Evaluation: 10:40 - Subjective Subjective: Patient continues to be on the ventilator, has hypothermia, has myoclonic jerks. Objective - Vital Signs/Intake and Output Vital Signs (last 24 hours): Temp Pulse Resp BP Pulse Ox 90.7 F L 48 L 29 H 153/88 H 100 01/27/18 06:15 01/27/18 06:15 01/26/18 19:00 01/27/18 06:00 01/27/18 06:15 Intake and Output: 01/27/18 01/27/18 06:59 18:59 Intake Total 1490 Output Total 300 Balance 1190 - Medications Medications: Current Medications Enoxaparin Sodium (Lovenox) 40 mg SC DAILY DAVID PRN Reason: Protocol Doxycycline Hyclate 100 mg/ (Sodium Chloride) 100 mls @ 100 mls/hr IVPB Q12 DAVID PRN Reason: Protocol Last Admin: 01/27/18 09:25 Dose: 100 mls/hr Cefepime HCl (Maxipime 1gm) 1 gm in 100 mls @ 100 mls/hr IVPB Q8 DAVID PRN Reason: Protocol Stop: 02/04/18 14:01 Last Admin: 01/27/18 06:08 Dose: 100 mls/hr Vancomycin HCl (Vancomycin 1gm) 1 gm in 250 mls @ 167 mls/hr IVPB Q12H DAVID PRN Reason: Protocol Levetiracetam 1,000 mg/ Sodium (Chloride) 110 mls @ 460 mls/hr IV Q12 DAVID Insulin Human Lispro (Humalog Low) 0 units SC Q6H DAVID PRN Reason: Protocol Last Admin: 01/27/18 06:13 Dose: Not Given Lorazepam (Ativan) 1 mg IVP Q3 PRN; Protocol PRN Reason: Seizure activity Last Admin: 01/27/18 09:29 Dose: 1 mg Pantoprazole Sodium (Protonix Inj) 40 mg IVP DAILY [facility] Last Admin: 01/27/18 09:20 Dose: 40 mg - Labs Labs: 01/27/18 09:00 01/27/18 03:28 PT 15.1 SECONDS (9.4-12.5) H 01/27/18 09:00 INR 1.31 01/27/18 09:00 APTT 32.9 Seconds (25.1-36.5) 01/27/18 09:00 - Constitutional Appears: Chronically Ill, Other (intubated, not responsive, has myoclonic jerks) - ENT Exam Additional comments: ET tube in place - Respiratory Exam Respiratory Exam: Decreased Breath Sounds - Cardiovascular Exam Cardiovascular Exam: +S1, +S2 - GI/Abdominal Exam GI & Abdominal Exam: Soft. absent: Tenderness Assessment and Plan - Assessment and Plan (Free Text) Plan: Assessment severe sepsis with ventilator dependent respiratory failure S/P cardiorespiratory arrest with bilateral HCAP - with acute encephalopathy, probably anoxic in nature, now with myoclonic jerks dementia chronic CHF S/P ICD placement Plan given a dose of IV Vancomycin and will continue Doxycycline and Cefepime overall prognosis is poor - follow up EEG results will monitor clinically
--- NOTE | 2018-01-27 14:12 | CP.PCM.CON ---
History of Present Illness - History of Present Illness History of Present Illness: Palliative consult requested by family/copied to attending Dr Albino Stinson Reason: Advance care planning 87 year old female with history of dementia, CHF, arrhythmia s/p AICD who presented who was found wandering in the community and brought to ED with altered mental status. Patient was initially agitated/combative and then became unresponsive>ACLS > PEA> intubated> . She is s/p hypothermia protocol. Patient having jerking/twitching movements since episode of cardiac arrest. Initial CT of head showed low attenuation abnormality in periventricular white matter reflecting chronic microvascular ischemic disease. Brain flow study with visualization of sagital sinus consistent with intact intracranial flow. Today's head CT showed no acute findings Chest CT revealed extensive consolidation at both lung bases,R>L, air bronchograms, likely extensive bilateral pneumonia. PMHx:dementia, CHF, arrhythmia s/p AICD, Social History: Former smoker, no alcohol or drug use. Family History: Non contributory. Advance Care Planning:The patient does not have an Advanced Directive. Review of Systems:Unobtainable, intubated/altered. Past Patient History - Infectious Disease Hx of Infectious Diseases: None - Past Medical History & Family History Past Medical History?: No Past Family History: Reviewed and not pertinent - Past Social History Smoking Status: Former Smoker Alcohol: None Drugs: Denies - CARDIAC Hx Congestive Heart Failure: Yes (s/p defibrillator) Hx Internal Defibrillator: Yes - NEUROLOGICAL Hx Dementia: Yes - MUSCULOSKELETAL/RHEUMATOLOGICAL Hx Falls: No - PSYCHIATRIC Hx Substance Use: No - SURGICAL HISTORY Other/Comment: unable to obtain - ANESTHESIA Hx Anesthesia: No Hx Anesthesia Reactions: No Hx Malignant Hyperthermia: No Meds Allergies/Adverse Reactions: Allergies Allergy/AdvReac Type Severity Reaction Status Date / Time Unobtainable Allergy Verified 01/26/18 02:15 - Medications Medications: Current Medications Enoxaparin Sodium (Lovenox) 40 mg SC DAILY DAVID PRN Reason: Protocol Doxycycline Hyclate 100 mg/ (Sodium Chloride) 100 mls @ 100 mls/hr IVPB Q12 DAVID PRN Reason: Protocol Last Admin: 01/27/18 09:25 Dose: 100 mls/hr Cefepime HCl (Maxipime 1gm) 1 gm in 100 mls @ 100 mls/hr IVPB Q8 DAVID PRN Reason: Protocol Stop: 02/04/18 14:01 Last Admin: 01/27/18 06:08 Dose: 100 mls/hr Vancomycin HCl (Vancomycin 1gm) 1 gm in 250 mls @ 167 mls/hr IVPB Q12H DAVID PRN Reason: Protocol Levetiracetam 1,000 mg/ Sodium (Chloride) 110 mls @ 460 mls/hr IV Q12 DAVID Insulin Human Lispro (Humalog Low) 0 units SC Q6H DAVID PRN Reason: Protocol Last Admin: 01/27/18 06:13 Dose: Not Given Lorazepam (Ativan) 1 mg IVP Q3 PRN; Protocol PRN Reason: Seizure activity Last Admin: 01/27/18 09:29 Dose: 1 mg Pantoprazole Sodium (Protonix Inj) 40 mg IVP DAILY [facility] Last Admin: 01/27/18 09:20 Dose: 40 mg Physical Exam - Constitutional Appears: Chronically Ill - ENT Exam ENT Exam: Mucous Membranes Moist - Neck Exam Neck exam: Positive for: Normal Inspection - Respiratory Exam Respiratory Exam: Decreased Breath Sounds, Rhonchi - Cardiovascular Exam Cardiovascular Exam: REGULAR RHYTHM, +S1, +S2 - GI/Abdominal Exam GI & Abdominal Exam: Hypoactive Bowel Sounds, Soft - Neurological Exam Neurological exam: Altered - Skin Skin Exam: Dry, Pallor, Warm - Additional Findings Additional findings: Palliative performance scale rating 10% Results - Vital Signs Recent Vital Signs: Last Vital Signs Temp 96.4 F L 01/27/18 12:45 Pulse 69 01/27/18 12:45 Resp 41 H 01/27/18 10:51 BP 158/60 H 01/27/18 12:30 Pulse Ox 100 01/27/18 12:45 - Labs Result Diagrams: 01/27/18 09:00 01/27/18 03:28 Labs: Laboratory Results - last 24 hr 01/26/18 01/26/18 01/26/18 09:02 13:32 15:15 WBC RBC Hgb Hct MCV MCH MCHC RDW Plt Count MPV Gran % Lymph % (Auto) [place] % (Auto) Eos % (Auto) Baso % (Auto) Gran # Lymph # (Auto) [place] # (Auto) Eos # (Auto) Baso # (Auto) PT INR APTT pCO2 pO2 HCO3 ABG pH ABG Total CO2 ABG O2 Saturation ABG O2 Content ABG Base Excess ABG Hemoglobin ABG Carboxyhemoglobin POC ABG HHb (Measured) ABG Methemoglobin ABG O2 Capacity VBG pH VBG pCO2 VBG HCO3 VBG Total CO2 VBG O2 Sat (Calc) VBG Base Excess VBG Potassium Hgb O2 Saturation Sodium Chloride Glucose Lactate FiO2 Potassium Carbon Dioxide Anion Gap BUN Creatinine Est GFR ( Amer) Est GFR (Non-Af Amer) POC Glucose (mg/dL) Random Glucose Calcium Phosphorus Magnesium Total Bilirubin AST ALT Alkaline Phosphatase Troponin I 1.86 H* D Total Protein Albumin Globulin Albumin/Globulin Ratio Procalcitonin 3.30 H Venous Blood Potassium Ur L.pneumophila Ag Negative 01/26/18 01/26/18 01/26/18 16:50 20:14 21:04 WBC 9.9 D RBC 4.22 Hgb 12.9 Hct 40.3 MCV 95.5 D MCH 30.6 MCHC 32.0 RDW 14.7 H Plt Count 153 MPV 11.8 H Gran % 87.3 H Lymph % (Auto) 6.9 L [place] % (Auto) 5.7 Eos % (Auto) 0.0 L Baso % (Auto) 0.1 Gran # 8.60 H Lymph # (Auto) 0.7 L [place] # (Auto) 0.6 Eos # (Auto) 0.0 Baso # (Auto) 0.01 PT INR APTT pCO2 pO2 HCO3 ABG pH ABG Total CO2 ABG O2 Saturation ABG O2 Content ABG Base Excess ABG Hemoglobin ABG Carboxyhemoglobin POC ABG HHb (Measured) ABG Methemoglobin ABG O2 Capacity VBG pH VBG pCO2 VBG HCO3 VBG Total CO2 VBG O2 Sat (Calc) VBG Base Excess VBG Potassium Hgb O2 Saturation Sodium Chloride Glucose Lactate FiO2 Potassium Carbon Dioxide Anion Gap BUN Creatinine Est GFR ( Amer) Est GFR (Non-Af Amer) POC Glucose (mg/dL) 181 H 153 H Random Glucose Calcium Phosphorus Magnesium Total Bilirubin AST ALT Alkaline Phosphatase Troponin I Total Protein Albumin Globulin Albumin/Globulin Ratio Procalcitonin Venous Blood Potassium Ur L.pneumophila Ag 01/26/18 01/26/18 01/26/18 21:04 21:04 21:04 WBC RBC Hgb Hct MCV MCH MCHC RDW Plt Count MPV Gran % Lymph % (Auto) [place] % (Auto) Eos % (Auto) Baso % (Auto) Gran # Lymph # (Auto) [place] # (Auto) Eos # (Auto) Baso # (Auto) PT 12.6 H INR 1.10 APTT 28.9 pCO2 pO2 38 HCO3 ABG pH ABG Total CO2 ABG O2 Saturation ABG O2 Content ABG Base Excess ABG Hemoglobin ABG Carboxyhemoglobin POC ABG HHb (Measured) ABG Methemoglobin ABG O2 Capacity VBG pH 7.23 L VBG pCO2 55.0 VBG HCO3 23.0 VBG Total CO2 24.7 VBG O2 Sat (Calc) 61.4 VBG Base Excess -5.2 L VBG Potassium 3.8 Hgb O2 Saturation Sodium 145.0 145 Chloride 112.0 H 114 H Glucose 167 H Lactate 4.0 H* FiO2 21.0 Potassium 4.1 Carbon Dioxide 21 Anion Gap 14 BUN 30 H Creatinine 0.7 Est GFR ( Amer) > 60 Est GFR (Non-Af Amer) > 60 POC Glucose (mg/dL) Random Glucose 153 H Calcium 7.4 L Phosphorus 4.0 Magnesium 1.8 Total Bilirubin 0.5 AST 76 H D ALT 56 Alkaline Phosphatase 76 Troponin I Total Protein 5.3 L Albumin 2.8 L Globulin 2.5 Albumin/Globulin Ratio 1.1 Procalcitonin Venous Blood Potassium 3.8 Ur L.pneumophila Ag 01/27/18 01/27/18 01/27/18 00:05 03:28 03:28 WBC 12.6 H D RBC 4.54 Hgb 13.9 Hct 42.7 MCV 94.1 MCH 30.6 MCHC 32.6 RDW 14.8 H Plt Count 176 MPV 11.6 H Gran % 88.8 H Lymph % (Auto) 5.8 L [place] % (Auto) 5.3 Eos % (Auto) 0.0 L Baso % (Auto) 0.1 Gran # 11.23 H Lymph # (Auto) 0.7 L [place] # (Auto) 0.7 H Eos # (Auto) 0.0 Baso # (Auto) 0.01 PT INR APTT pCO2 pO2 28 L HCO3 ABG pH ABG Total CO2 ABG O2 Saturation ABG O2 Content ABG Base Excess ABG Hemoglobin ABG Carboxyhemoglobin POC ABG HHb (Measured) ABG Methemoglobin ABG O2 Capacity VBG pH 7.18 L* VBG pCO2 60.0 VBG HCO3 22.4 VBG Total CO2 24.2 VBG O2 Sat (Calc) 50.6 VBG Base Excess -6.8 L VBG Potassium 3.7 Hgb O2 Saturation Sodium 142.0 Chloride 108.0 H Glucose 180 H Lactate 3.4 H FiO2 21.0 Potassium Carbon Dioxide Anion Gap BUN Creatinine Est GFR ( Amer) Est GFR (Non-Af Amer) POC Glucose (mg/dL) 161 H Random Glucose Calcium Phosphorus Magnesium Total Bilirubin AST ALT Alkaline Phosphatase Troponin I Total Protein Albumin Globulin Albumin/Globulin Ratio Procalcitonin Venous Blood Potassium 3.7 Ur L.pneumophila Ag 01/27/18 01/27/18 01/27/18 03:28 06:12 07:00 WBC RBC Hgb Hct MCV MCH MCHC RDW Plt Count MPV Gran % Lymph % (Auto) [place] % (Auto) Eos % (Auto) Baso % (Auto) Gran # Lymph # (Auto) [place] # (Auto) Eos # (Auto) Baso # (Auto) PT INR APTT pCO2 pO2 242 H HCO3 ABG pH ABG Total CO2 ABG O2 Saturation ABG O2 Content ABG Base Excess ABG Hemoglobin ABG Carboxyhemoglobin POC ABG HHb (Measured) ABG Methemoglobin ABG O2 Capacity VBG pH 7.37 VBG pCO2 32.0 L VBG HCO3 18.5 L VBG Total CO2 19.5 L VBG O2 Sat (Calc) 99.8 H VBG Base Excess -5.8 L VBG Potassium 3.4 L Hgb O2 Saturation Sodium 145 140.0 Chloride 110 H 112.0 H Glucose 198 H Lactate 1.9 FiO2 21.0 Potassium 4.1 Carbon Dioxide 23 Anion Gap 16 BUN 31 H Creatinine 0.6 L Est GFR ( Amer) > 60 Est GFR (Non-Af Amer) > 60 POC Glucose (mg/dL) 149 H Random Glucose 168 H Calcium 7.6 L Phosphorus 4.0 Magnesium 1.6 L Total Bilirubin 0.5 AST 92 H D ALT 49 Alkaline Phosphatase 83 Troponin I Total Protein 5.8 Albumin 3.1 Globulin 2.7 Albumin/Globulin Ratio 1.2 Procalcitonin Venous Blood Potassium 3.4 L Ur L.pneumophila Ag 01/27/18 01/27/18 01/27/18 09:00 09:00 09:30 WBC 13.3 H RBC 4.13 Hgb 12.4 Hct 38.3 MCV 92.7 MCH 30.0 MCHC 32.4 RDW 14.8 H Plt Count 154 MPV 12.0 H Gran % 88.8 H Lymph % (Auto) 6.4 L [place] % (Auto) 4.7 Eos % (Auto) 0.0 L Baso % (Auto) 0.1 Gran # 11.85 H Lymph # (Auto) 0.9 L [place] # (Auto) 0.6 Eos # (Auto) 0.0 Baso # (Auto) 0.01 PT 15.1 H INR 1.31 APTT 32.9 pCO2 pO2 HCO3 ABG pH ABG Total CO2 ABG O2 Saturation ABG O2 Content ABG Base Excess ABG Hemoglobin ABG Carboxyhemoglobin POC ABG HHb (Measured) ABG Methemoglobin ABG O2 Capacity VBG pH VBG pCO2 VBG HCO3 VBG Total CO2 VBG O2 Sat (Calc) VBG Base Excess VBG Potassium Hgb O2 Saturation Sodium Chloride Glucose Lactate FiO2 Potassium Carbon Dioxide Anion Gap BUN Creatinine Est GFR ( Amer) Est GFR (Non-Af Amer) POC Glucose (mg/dL) Random Glucose Calcium Phosphorus Magnesium Total Bilirubin AST ALT Alkaline Phosphatase Troponin I 1.26 H* D Total Protein Albumin Globulin Albumin/Globulin Ratio Procalcitonin Venous Blood Potassium Ur L.pneumophila Ag 01/27/18 11:20 WBC RBC Hgb Hct MCV MCH MCHC RDW Plt Count MPV Gran % Lymph % (Auto) [place] % (Auto) Eos % (Auto) Baso % (Auto) Gran # Lymph # (Auto) [place] # (Auto) Eos # (Auto) Baso # (Auto) PT INR APTT pCO2 30 L pO2 115.0 H HCO3 19.0 L ABG pH 7.41 ABG Total CO2 19.9 L ABG O2 Saturation 99.5 H ABG O2 Content 15.4 ABG Base Excess -4.7 L ABG Hemoglobin 11.2 L ABG Carboxyhemoglobin 1.5 POC ABG HHb (Measured) 0.5 ABG Methemoglobin 1.3 ABG O2 Capacity 15.5 L VBG pH VBG pCO2 VBG HCO3 VBG Total CO2 VBG O2 Sat (Calc) VBG Base Excess VBG Potassium Hgb O2 Saturation 96.8 Sodium Chloride Glucose Lactate FiO2 80.0 Potassium Carbon Dioxide Anion Gap BUN Creatinine Est GFR ( Amer) Est GFR (Non-Af Amer) POC Glucose (mg/dL) Random Glucose Calcium Phosphorus Magnesium Total Bilirubin AST ALT Alkaline Phosphatase Troponin I Total Protein Albumin Globulin Albumin/Globulin Ratio Procalcitonin Venous Blood Potassium Ur L.pneumophila Ag Assessment & Plan - Assessment and Plan (Free Text) Assessment: 87 year old female with history of CHF,dementia, s/p AICD who is s/p cardiopulmonary arrest and ACLS, s/p hypothermia protocol. She is intubated. She is admitted with respiratory failure, seizure disorder, anoxic brain injury , bilateral pleural Patient's three daughters at [facility] [employer] [place], two of whom are nurses. Family has decided to make patent DNR. They understand that if her heart fails,CPR will not be initiated. Family also considering terminal extuabtion. [facility] Family understands and if they proceed with terminal extuabtion would also want comfort care initiated. Hospice services also explained. Family have not made decision at this time but are appreciative of information. Psychosis support provided Time spent with family in goals of care and advance care planning, 30 minutes Plan: Sepsis/HCAP: ID following, on Doxycycline, Cefepime and Vancomycin Neurology:anoxic brain injury,seizure disorder Continue Keppra. Neuro checks, EEG pending Respiratory: Intubated, SA02 >90% Cardio: Maintain MAP> 65. Cardio following. Family requesting DNR >Inactivate AICD? Goals of care and advance care planning: DNR
--- NOTE | 2018-01-27 17:06 | CP.PCM.PN ---
<Eric Staples - Last Filed: 01/27/18 19:22> Subjective - Date & Time of Evaluation Date of Evaluation: 01/27/18 Time of Evaluation: 17:03 - Subjective Subjective: Eric Staples D.O PGY-1, Internal Medicine progress note for Dr. Stinson Patient seen and examined at bedside this morning. No acute events overnight. Re -warming protocol initiated today morning. EEG today pending. Family has decided to make patient DNR. ROS is limited due to non-responsive patient off sedation. Objective - Vital Signs/Intake and Output Vital Signs (last 24 hours): Temp Pulse Resp BP Pulse Ox 96.4 F L 63 41 H 158/60 H 100 01/27/18 12:45 01/27/18 14:00 01/27/18 10:51 01/27/18 12:30 01/27/18 12:45 Intake and Output: 01/27/18 01/27/18 06:59 18:59 Intake Total 1490 Output Total 300 Balance 1190 - Medications Medications: Current Medications Enoxaparin Sodium (Lovenox) 40 mg SC DAILY DAVID PRN Reason: Protocol Doxycycline Hyclate 100 mg/ (Sodium Chloride) 100 mls @ 100 mls/hr IVPB Q12 DAVID PRN Reason: Protocol Last Admin: 01/27/18 09:25 Dose: 100 mls/hr Cefepime HCl (Maxipime 1gm) 1 gm in 100 mls @ 100 mls/hr IVPB Q8 DAVID PRN Reason: Protocol Stop: 02/04/18 14:01 Last Admin: 01/27/18 06:08 Dose: 100 mls/hr Vancomycin HCl (Vancomycin 1gm) 1 gm in 250 mls @ 167 mls/hr IVPB Q12H DAVID PRN Reason: Protocol Levetiracetam 1,000 mg/ Sodium (Chloride) 110 mls @ 460 mls/hr IV Q12 DAVID Insulin Human Lispro (Humalog Low) 0 units SC Q6H DAVID PRN Reason: Protocol Last Admin: 01/27/18 06:13 Dose: Not Given Lorazepam (Ativan) 1 mg IVP Q3 PRN; Protocol PRN Reason: Seizure activity Last Admin: 01/27/18 09:29 Dose: 1 mg Pantoprazole Sodium (Protonix Inj) 40 mg IVP DAILY [facility] Last Admin: 01/27/18 09:20 Dose: 40 mg - Labs Labs: 01/27/18 09:00 01/27/18 03:28 PT 15.1 SECONDS (9.4-12.5) H 01/27/18 09:00 INR 1.31 01/27/18 09:00 APTT 32.9 Seconds (25.1-36.5) 01/27/18 09:00 - Head Exam Head Exam: ATRAUMATIC, NORMAL INSPECTION - Eye Exam Additional comments: pupils pinpoint - ENT Exam ENT Exam: Mucous Membranes Moist - Respiratory Exam Respiratory Exam: Clear to Ausculation Bilateral. absent: Accessory Muscle Use , Respiratory Distress - Cardiovascular Exam Cardiovascular Exam: REGULAR RHYTHM, +S1, +S2. absent: Murmur - GI/Abdominal Exam GI & Abdominal Exam: Soft. absent: Distended - Extremities Exam Extremities Exam: absent: Pedal Edema - Neurological Exam Neurological Exam: absent: Alert, Awake Additional comments: non-responsive - Skin Skin Exam: Dry, Intact. absent: Cyanosis Assessment and Plan - Assessment and Plan (Free Text) Assessment: Ms. Mcfadden is an 87 year old female with PMH of CHF s/p defibrillator and dementia presenting to the ICU for acute hypoxic respiratory failure s/p cardiac arrest complicated with severe ARDS and concern for aspiration pneumonia. Plan: Severe encephalopathy - likely 2/2 anoxic injury - EEG showed severe encephalopathy - increase Keppra from 500mg Q12 to 1000mg Q12 - Ativan PRN seizure-like activity - currently on re-warming protocol this morning - Neuro check q1 - repeat Head CT (01/27): showed no acute changes - Initial Head CT (01/26): showed low attenuation abnormality in periventricular white matter reflecting chronic microvascular ischemic disease. - Brain nuclear scan (01/26): showed no arterial blood flow - Neuro on consult, Dr. Albright Cardiopulmonary Arrest - s/p cardiopulmonary arrest - rewarming phase of hypothermia protocol today - Intubated, not on sedation - history of systolic CHF with pacemaker/AICD placement - maintain MAP>65 - will monitor vitals including HR and BP closely, vitals q2 - 2D echo (01/26): showed EF of 39.5%, mild-moderate hypokinesis of inferoseptal wall, moderate AR, mild MR, mild to moderate TR - repeat troponin (01/27): 1.26 - Cardio on consult, Dr. Morgan Acute Respiratory Failure - SaO2 >90% - supplementary O2 PRN - CT chest (01/26): showed extensive consolidation at lung bases R>L,air bronchograms, likely extensive bilateral pneumonia - High PEEP/low TV ventilator setting in light of ARDS - Current Vent settings of TV 340, RR 15, PEEP 5 and FiO2 of 80 -CXR today shows worsening pulmonary edema in the right lung and interval development of of B/L pleural effusions Severe sepsis and bilateral HCAP - WBC is 13.3 today, afebrile - blood culture no growth after 24 hours, sputum culture normal oral hernando, urine culture no growth - on cefepime and doxycycline - ID on consult, Dr. Valdivia Anion gap metabolic acidosis - secondary to lactic acidosis (4.4 on admission) likely from cardiac arrest - maintain euvolemia - avoid nephrotoxic agents, hypochloremia - replace electrolytes as needed - BUN/Cr 31/0.6, will monitor - VBG today reads pH/pCO2/bicarb of 7.37/32/18.5. Improved from yesterday History of diabetes - maintain euglycemia - insulin lispro ACHS - finger sticks q6 Advance care planning - Palliative care consulted- Porsha Winslow - Family has decided to make patient DNR - Family also considering terminal extubation- family have not made decision at this time -Diet: NPO, OG tube -GI/DVT prophylaxis: protonix, lovenox, and SCD's Patient case reviewed with and plan approved by attending physician, Dr. Stinson <Mell Stinson - Last Filed: 01/28/18 08:05> Objective - Vital Signs/Intake and Output Vital Signs (last 24 hours): Temp Pulse Resp BP Pulse Ox 98.1 F 30 L 41 H 62/47 L 69 L 01/28/18 02:00 01/28/18 01:45 01/27/18 10:51 01/28/18 01:00 01/28/18 01:30 Intake and Output: 01/28/18 01/28/18 06:59 18:59 Intake Total 10 Balance 10 - Labs Labs: 01/27/18 09:00 01/27/18 03:28 PT 15.1 SECONDS (9.4-12.5) H 01/27/18 09:00 INR 1.31 01/27/18 09:00 APTT 32.9 Seconds (25.1-36.5) 01/27/18 09:00 Attending/Attestation - Attestation I have personally seen and examined this patient.: Yes I have fully participated in the care of the patient.: Yes I have reviewed all pertinent clinical information, including history, physical exam and plan: Yes Notes (Text): 01/27/18 87 year old female with past medical history of CHF, s/p defibrillator and dementia who presented with altered mental status. While in ER she had cardiac arrest and was admitted to ICU. Hypothermia protocol was initiated. Initial CT head was negative for acute findings. CT chest showed bilateral infiltrates and she is on iv antibiotics. She is on keppra. EEG and brain flow study reviewed with neurology today. Repeat CT head and EEG ordered for today. Cardiology evaluation is pending. Echocardiogram was reviewed. Palliative care consultation was appreciated. Family requested for DNR and terminal extubation. Mell Stinson MD Hospitalist.
--- NOTE | 2018-01-27 18:40 | CARD ---
APPROVED REPORT Date of service: 01/26/2018 EKG Measurement Heart [id number] <Conclusion> Normal sinus rhythm Right bundle branch block Left anterior fascicular block Bifascicular block Voltage criteria for left ventricular hypertrophy T wave abnormality, consider lateral ischemia Abnormal ECG
[2018-01-27] MEDS ORDERED: Morphine 4 mg/ml ISec IVP STA (20:19)
[2018-01-27] MEDS ORDERED: Morphine PCA 1 mg/ml (30ml) 30 ML IV PRN (20:19)
[2018-01-27] MEDS ORDERED: levETIRAcetam 1,000 MG in Sodium Chloride 0.9% 100 ML IV SCH (22:00)
[2018-01-28] MEDS ORDERED: DiphenhydrAMINE 50 mg/ml Inj IVP ONE (00:12)
--- NOTE | 2018-01-28 01:46 | CP.PCM.PRO ---
Pronouncement of Note - Clinical Findings Physical Exam: No Response Verbal/Painful Stimuli, Absent Heart & Breath Sounds , No Pupillary Light Reflex, No Corneal Reflex, Absence of Vital Signs - Pronouncement Time Time of Pronouncement of : 01:58 - Notifications Pronouncement Notifications: Family Notified, Atending Notified Cooker Sulfite Notified: No - Autopsy Autopsy Requested: No [place] [id number]
[2018-01-28 04:48] VITALS: BP 62/47; PULSE 30; TEMP 98.1; O2SAT 69
--- NOTE | 2018-01-28 06:38 | CP.PCM.DIS ---
Provider - Provider Date of Admission: 01/26/18 04:37 Attending physician: Mell Stinson MD Primary care physician: Vic Unger MD Time Spent in preparation of Discharge (in minutes): 45 Hospital Course - Lab Results Lab Results: Micro Results 01/26/18 11:02 [place] MRSA Culture (Admit) - Final MRSA NOT DETECTED 01/26/18 09:00 Blood Blood Culture - Preliminary NO GROWTH AFTER 24 HOURS 01/26/18 11:11 Urine Urine Culture - Final No Growth (<1,000 CFU/ML) 01/26/18 11:02 Sputum Gram Stain - Final 01/26/18 11:02 Sputum Sputum Culture - Preliminary NORMAL ORAL HANSA Most Recent Lab Values WBC 13.3 10^3/ul (4.5-11.0) H 01/27/18 09:00 RBC 4.13 10^6/uL (3.5-6.1) 01/27/18 09:00 Hgb 12.4 g/dL (12.0-16.0) 01/27/18 09:00 Hct 38.3 % (36.0-48.0) 01/27/18 09:00 MCV 92.7 fl (80.0-105.0) 01/27/18 09:00 MCH 30.0 pg (25.0-35.0) 01/27/18 09:00 MCHC 32.4 g/dl (31.0-37.0) 01/27/18 09:00 RDW 14.8 % (11.5-14.5) H 01/27/18 09:00 Plt Count 154 10^3/uL (120.0-450.0) 01/27/18 09:00 MPV 12.0 fl (7.0-11.0) H 01/27/18 09:00 Gran % 88.8 % (50.0-68.0) H 01/27/18 09:00 Lymph % (Auto) 6.4 % (22.0-35.0) L 01/27/18 09:00 [place] % (Auto) 4.7 % (1.0-6.0) 01/27/18 09:00 Eos % (Auto) 0.0 % (1.5-5.0) L 01/27/18 09:00 Baso % (Auto) 0.1 % (0.0-3.0) 01/27/18 09:00 Gran # 11.85 (1.4-6.5) H 01/27/18 09:00 Lymph # (Auto) 0.9 (1.2-3.4) L 01/27/18 09:00 [place] # (Auto) 0.6 (0.1-0.6) 01/27/18 09:00 Eos # (Auto) 0.0 (0.0-0.7) 01/27/18 09:00 Baso # (Auto) 0.01 K/mm3 (0.0-2.0) 01/27/18 09:00 PT 15.1 SECONDS (9.4-12.5) H 01/27/18 09:00 INR 1.31 01/27/18 09:00 APTT 32.9 Seconds (25.1-36.5) 01/27/18 09:00 pCO2 30 mm/Hg (35-45) L 01/27/18 11:20 pO2 115.0 mm/Hg (80-100) H 01/27/18 11:20 HCO3 19.0 mmol/L (21-28) L 01/27/18 11:20 ABG pH 7.41 (7.35-7.45) 01/27/18 11:20 ABG Total CO2 19.9 mmol.L (22-28) L 01/27/18 11:20 ABG O2 Saturation 99.5 % (95-98) H 01/27/18 11:20 ABG O2 Content 15.4 ML/dl (15-23) 01/27/18 11:20 ABG Base Excess -4.7 mmol/L (-2.0-3.0) L 01/27/18 11:20 ABG Hemoglobin 11.2 g/dL (11.7-17.4) L 01/27/18 11:20 ABG Carboxyhemoglobin 1.5 % (0.5-1.5) 01/27/18 11:20 POC ABG HHb (Measured) 0.5 % (0-5) 01/27/18 11:20 ABG Methemoglobin 1.3 % (0.0-3.0) 01/27/18 11:20 ABG O2 Capacity 15.5 mL/dl (16-24) L 01/27/18 11:20 ABG Potassium 3.7 mmol/L (3.6-5.2) 01/26/18 12:26 VBG pH 7.37 (7.32-7.43) 01/27/18 07:00 VBG pCO2 32.0 (40-60) L 01/27/18 07:00 VBG HCO3 18.5 mmol/l (21-28) L 01/27/18 07:00 VBG Total CO2 19.5 mmol.L (22-28) L 01/27/18 07:00 VBG O2 Sat (Calc) 99.8 % (40-65) H 01/27/18 07:00 VBG Base Excess -5.8 mmol/L (0.0-2.0) L 01/27/18 07:00 VBG Potassium 3.4 mmol/L (3.6-5.2) L 01/27/18 07:00 Hgb O2 Saturation 96.8 % (95.0-98.0) 01/27/18 11:20 Sodium 140.0 mmol/L (132-148) 01/27/18 07:00 Chloride 112.0 mmol/L (98-107) H 01/27/18 07:00 Glucose 198 mg/dl (65-105) H 01/27/18 07:00 Lactate 1.9 mmol/L (0.7-2.1) 01/27/18 07:00 Mechanical Rate 15 01/26/18 12:26 FiO2 80.0 % 01/27/18 11:20 Tidal Volume 400 01/26/18 12:26 PEEP 5 01/26/18 12:26 Sodium 145 mmol/L (132-148) 01/27/18 03:28 Potassium 4.1 mmol/L (3.6-5.0) 01/27/18 03:28 Chloride 110 mmol/L (98-107) H 01/27/18 03:28 Carbon Dioxide 23 mmol/L (21-33) 01/27/18 03:28 Anion Gap 16 (10-20) 01/27/18 03:28 BUN 31 mg/dL (7-21) H 01/27/18 03:28 Creatinine 0.6 mg/dl (0.7-1.2) L 01/27/18 03:28 Est GFR ( Amer) > 60 01/27/18 03:28 Est GFR (Non-Af Amer) > 60 01/27/18 03:28 POC Glucose (mg/dL) 124 mg/dL (65-110) H 01/27/18 17:59 Random Glucose 168 mg/dL (70-110) H 01/27/18 03:28 Hemoglobin A1c 6.8 % (4.2-6.5) H 01/26/18 05:00 Calcium 7.6 mg/dL (8.4-10.5) L 01/27/18 03:28 Phosphorus 4.0 mg/dL (2.5-4.5) 01/27/18 03:28 Magnesium 1.6 mg/dL (1.7-2.2) L 01/27/18 03:28 Total Bilirubin 0.5 mg/dL (0.2-1.3) 01/27/18 03:28 AST 92 U/L (14-36) H D 01/27/18 03:28 ALT 49 U/L (7-56) 01/27/18 03:28 Alkaline Phosphatase 83 U/L (38-126) 01/27/18 03:28 Troponin I 1.26 ng/mL H* D 01/27/18 09:30 Total Protein 5.8 g/dL (5.8-8.3) 01/27/18 03:28 Albumin 3.1 g/dL (3.0-4.8) 01/27/18 03:28 Globulin 2.7 gm/dL 01/27/18 03:28 Albumin/Globulin Ratio 1.2 (1.1-1.8) 01/27/18 03:28 Procalcitonin 3.30 NG/ML (0.19-0.49) H 01/26/18 09:02 Arterial Blood Potassium 3.7 mmol/L (3.6-5.2) 01/26/18 12:26 Venous Blood Potassium 3.4 mmol/L (3.6-5.2) L 01/27/18 07:00 Urine Color Yellow (YELLOW) 01/26/18 11:11 Urine Appearance Clear (CLEAR) 01/26/18 11:11 Urine pH 6.0 (4.7-8.0) 01/26/18 11:11 Ur Specific [place] 1.025 (1.005-1.035) 01/26/18 11:11 Urine Protein 30 mg/dL (<30 mg/dL) H 01/26/18 11:11 Urine Glucose (UA) Negative mg/dL (NEGATIVE) 01/26/18 11:11 Urine Ketones Negative mg/dL (NEGATIVE) 01/26/18 11:11 Urine Blood Moderate (NEGATIVE) H 01/26/18 11:11 Urine Nitrate Negative (NEGATIVE) 01/26/18 11:11 Urine Bilirubin Negative (NEGATIVE) 01/26/18 11:11 Urine Urobilinogen 0.2 E.U./dL (<1 E.U./dL) 01/26/18 11:11 Ur Leukocyte Esterase Negative [place]/uL (NEGATIVE) 01/26/18 11:11 Urine RBC 10 - 15 /hpf (0-2) 01/26/18 11:11 Urine WBC 1 - 3 /hpf (0-6) 01/26/18 11:11 Ur Epithelial Cells 4 - 5 /hpf (0-5) 01/26/18 11:11 Amorphous Sediment Few 01/26/18 11:11 Urine Bacteria Many (NEG) 01/26/18 11:11 Fine Granular Casts 0 - 2 /hpf (0-2) 01/26/18 11:11 Coarse Granular Casts Trace /hpf (0-2) H 01/26/18 11:11 Urine Other [place]yeast 01/26/18 11:11 Ur L.pneumophila Ag Negative (NEGATIVE) 01/26/18 13:32 Discharge Exam - Head Exam Head Exam: ATRAUMATIC, NORMAL INSPECTION Discharge Plan - Follow Up Plan Condition: GOOD Disposition: WITH WITHOUT AUTOPSY Referrals: Vic Unger MD [Primary Care Provider] -
== END 2018-01-28 01:58 | DRG 871 ==
LOC: EDBD → ED 02:07 → ERH 04:37 → MERGE 04:37 → CCU 07:39
PROVIDERS: ADMIT Internal Medicine; ATTEND Internal Medicine
PROC: 5A12012 Performance of Cardiac Output, Single, Manual (ICD-10-PCS; principal; 2018-01-26)
PROC: 5A1935Z Respiratory Ventilation, Less than 24 Consecutive Hours (ICD-10-PCS; 2018-01-26)
PROC: 0BH17EZ Insertion of Endotracheal Airway into Trachea, Via Natural or Artificial Opening (ICD-10-PCS; 2018-01-26)
PROC: 05HP33Z Insertion of Infusion Device into Right External Jugular Vein, Percutaneous Approach (ICD-10-PCS; 2018-01-26)
DX: A41.9 Sepsis, unspecified organism (principal); I21.A1 Myocardial infarction type 2; J18.9 Pneumonia, unspecified organism; J96.01 Acute respiratory failure with hypoxia; G93.1 Anoxic brain damage, not elsewhere classified; E87.2 Acidosis; Z99.11 Dependence on respirator [ventilator] status; I45.2 Bifascicular block; I50.20 Unspecified systolic (congestive) heart failure; I50.22 Chronic systolic (congestive) heart failure; I46.9 Cardiac arrest, cause unspecified; R65.20 Severe sepsis without septic shock; G40.909 Epilepsy, unspecified, not intractable, without status epilepticus; R73.9 Hyperglycemia, unspecified; F03.90 Unspecified dementia, unspecified severity, without behavioral disturbance, psychotic disturbance, mood disturbance, and anxiety; I45.10 Unspecified right bundle-branch block; Y95 Nosocomial condition; Z66 Do not resuscitate; Z91.83 Wandering in diseases classified elsewhere; Z95.810 Presence of automatic (implantable) cardiac defibrillator; Z87.891 Personal history of nicotine dependence